=== PATIENT | male | born 1945 | race Caucasian/White ===

== ENCOUNTER 2023-03-29 08:28 | Emergency (ER) | payer OTHER, SELFPAY ==
--- NOTE | 2023-03-29 08:15 | RT.EKG_ITS ---
APPROVED REPORT Exam: Resting ECG Reason for Exam: SOB Patient Location: E HR:57 bpm ECG Measurements Heart Rate 57 AXIS TN 200 P 19 QRSd 93 QRS -32 QT 421 T 32 QTc 410 Conclusion Sinus bradycardia...rate< 60 Left axis deviation...QRS axis (-30,-90)
--- NOTE | 2023-03-29 08:15 | DI.RAD_ITS ---
Exam(s) XR CHEST 2V PA LATERAL EXAM: XR CHEST 2V PA LATERAL CLINICAL HISTORY: SOB, hx Pneumonia 3 weeks ago. TECHNIQUE: 2D digital imaging was performed. COMPARISON: No exams were available for comparison FINDINGS: 2 views: Heart size normal. Mediastinum is not widened. Surgical clips are seen in the right axilla and left medial clavicular region. There is platelike atelectasis in both lung bases. No pleural effusions. No pulmonary edema. No fr actures evident. IMPRESSION: There is prominent platelike atelectasis in both lung bases. No obvious pleural effusions. DATA REPOSITORY: RADIATION DOSE DELIVERED:
[2023-03-29 08:21] VITALS: BP 168/87; PULSE 62; RESP 23; TEMP 36.7; O2SAT 96
[2023-03-29 08:25] VITALS: RESP 20
--- NOTE | 2023-03-29 08:30 | ED.GENADUL_ITS ---
Discharge Plan Disposition Patient Disposition: Home Condition: Stable Discharge Details Clinical Impression: Elevated brain natriuretic peptide (BNP) level, Persistent shortness of breath after COVID-19 Primary Care Provider: None,None ED Provider: Jessica Westfall Home Meds and New Rx's Prescriptions: New furosemide [Lasix] 20 mg tablet 10 mg PO DAILY Qty: 14 0RF Rx Instructions: Please take 1 tablet in the morning by mouth daily for the next 14 days Continued Trelegy Ellipta 200-62.5-25 mcg blister with device 1 inh inhalation DAILY azelastine 137 mcg (0.1 %) aerosol,spray 1 spray intranasal ONCE Rx Instructions: administer into each nostril albuterol sulfate 90 mcg/actuation HFA aerosol inhaler 2 inh inhalation Q6H PRN Discharge Instructions Instructions: Dyspnea (ED), Low-Sodium Diet (ED) Additional Instructions: Today your proBNP level is slightly elevated. You may need to be placed on a low-dose antidiuretic which will make you pee and decrease fluid in your body. If you do not want to start this yet you may discuss this with your primary care doctor and reduce your salt intake. Please continue to take your medications as previously prescribe. Follow up with primary care provider in 3-5 days. Return to ED sooner if any worsening or concerns. Increase oral fluids. I am giving you a number to call to establish care with a primary care provider here in town if needed or able. If you get dizzy or lightheaded you may stop the Lasix for 1 day. Or you may wait to talk to the primary care doctor before you begin it. Referrals: Shannon Cespedes [NURSE PRACTITIONER] - 5 days Discharge Data Discharge Date/Time-TO BE ENTERED AT DEPARTURE: 03/29/23 10:44 Medical Decision Making 77-year-old male with a past medical history of recent pneumonia which was diagnosed approximately 2 to 3 weeks ago who has been being followed by [facility] presents to the ER with continued shortness of breath and problems sleeping at night. He does have an albuterol inhaler which he last used around 2 AM in the morning. He is on his last couple of prednisone after a previous prednisone taper. He reports continued cough mildly productive. Denies any fever chills nausea vomiting diarrhea. He does smoke. He also endorses alcohol and marijuana. Currently is primary medical provider is working him up for possible COPD. Cardiac work-up ordered including EKG serial troponin CBC, CMP, proBNP chest x- ray we will do a rapid flu and COVID. Patient's O2 sat is 96% on room air. Will consider a DuoNeb if needed. Patient is remained hemodynamically stable throughout his stay here no leukocytosis no signs of infection, VBG shows bicarb of 29 base excess of 4 pH 7.42, CMP is largely unremarkable except for BUN of 36 creatinine is 1.3 GFR 56, proBNP is 487 which is slightly elevated. I will discuss this with the patient I did discuss with care management she encouraged me to follow-up have him follow-up with the primary care doctor on-call. He is awaiting to get in with PCP at the [facility]. Imaging Data Radiologic Study: Imaging: X-Ray Radiologist's impression: Exam(s) XR CHEST 2V PA LATERAL EXAM: XR CHEST 2V PA LATERAL CLINICAL HISTORY: SOB, hx Pneumonia 3 weeks ago. TECHNIQUE: 2D digital imaging was performed. COMPARISON: No exams were available for comparison FINDINGS: 2 views: Heart size normal. Mediastinum is not widened. Surgical clips are seen in the right axilla and left medial clavicular region. There is platelike atelectasis in both lung bases. No pleural effusions. No pulmonary edema. No fractures evident. IMPRESSION: There is prominent platelike atelectasis in both lung bases. No obvious pleural effusions. Lab Data Lab results reviewed: Yes I reviewed the patient's lab results. Labs: Laboratory Tests Range/Units 03/29/23 03/29/23 03/29/23 08:37 08:37 08:37 WBC (4.4-10.8) 10^3/uL 9.65 RBC (4.36-5.78) 10^6/uL 4.34 L Hgb (13.5-17.5) g/dL 14.6 Hct (40.0-50.0) % 42.8 MCV (80-95) fL 99 H MCH (27.0-33.0) pg 33.6 H MCHC (32.0-36.0) % 34.1 RDW (11.8-14.1) % 14.2 H Plt Count (130-400) 10^3/uL 228 MPV (8.0-11.0) fL 9.5 Immature Gran % 1.6 Neutrophils % 57.9 Lymphocytes % 28.4 Monocytes % 8.9 Eosinophils % 2.6 Basophils % 0.6 Nucleated RBC % (0.0-0.3) % 0.0 Absolute Neutrophils (1.2-6.7) 10^3/uL 5.59 Absolute Lymphocytes (1.2-3.4) 10^3/uL 2.74 Absolute Monocytes (0.1-0.8) 10^3/uL 0.86 H Absolute Eosinophils (0.0-0.7) 10^3/uL 0.25 Absolute Basophils (0.0-0.2) 10^3/uL 0.06 VBG pH (7.31-7.41) 7.42 H VBG pCO2 (41-51) mmHg 45 VBG pO2 mmHg 49 VBG HCO3 (23-28) mmol/L 29 H VBG Total CO2 (24-29) mmol/L 26 VBG O2 Saturation % 85 VBG Base Excess (-2-3) mmol/L 4 H Sodium (136-145) mmol/L 137 Cancelled Potassium (3.5-5.1) mmol/L 4.3 Cancelled Chloride (98-107) mmol/L 102 Carbon Dioxide (21.0-32.0) mmol/L Anion Gap (3-11) mmol/L BUN (7-18) mg/dL Creatinine (0.70-1.30) mg/dL Est GFR (CKD-EPI 2020) (mL/min/1.73m2) Glucose (74-106) mg/dL Calcium (8.5-10.1) mg/dL Magnesium (1.8-2.4) mg/dL Total Bilirubin (0.2-1.0) mg/dL AST (15-37) U/L ALT (16-63) U/L Alkaline Phosphatase (46-116) U/L Troponin I (<or=60) ng/L NT-Pro-B Natriuret Pep (<300) pg/mL Total Protein (6.4-8.2) g/dL Albumin (3.4-5.0) g/dL Range/Units 03/29/23 03/29/23 03/29/23 08:37 08:37 08:37 WBC (4.4-10.8) 10^3/uL RBC (4.36-5.78) 10^6/uL Hgb (13.5-17.5) g/dL Hct (40.0-50.0) % MCV (80-95) fL MCH (27.0-33.0) pg MCHC (32.0-36.0) % RDW (11.8-14.1) % Plt Count (130-400) 10^3/uL MPV (8.0-11.0) fL Immature Gran % Neutrophils % Lymphocytes % Monocytes % Eosinophils % Basophils % Nucleated RBC % (0.0-0.3) % Absolute Neutrophils (1.2-6.7) 10^3/uL Absolute Lymphocytes (1.2-3.4) 10^3/uL Absolute Monocytes (0.1-0.8) 10^3/uL Absolute Eosinophils (0.0-0.7) 10^3/uL Absolute Basophils (0.0-0.2) 10^3/uL VBG pH (7.31-7.41) VBG pCO2 (41-51) mmHg VBG pO2 mmHg VBG HCO3 (23-28) mmol/L VBG Total CO2 (24-29) mmol/L VBG O2 Saturation % VBG Base Excess (-2-3) mmol/L Sodium (136-145) mmol/L Potassium (3.5-5.1) mmol/L Chloride (98-107) mmol/L Cancelled Carbon Dioxide (21.0-32.0) mmol/L 28.2 Cancelled Anion Gap (3-11) mmol/L 6.8 Cancelled BUN (7-18) mg/dL 36 H Creatinine (0.70-1.30) mg/dL Est GFR (CKD-EPI 2020) (mL/min/1.73m2) Glucose (74-106) mg/dL Calcium (8.5-10.1) mg/dL Magnesium (1.8-2.4) mg/dL Total Bilirubin (0.2-1.0) mg/dL AST (15-37) U/L ALT (16-63) U/L Alkaline Phosphatase (46-116) U/L Troponin I (<or=60) ng/L NT-Pro-B Natriuret Pep (<300) pg/mL Total Protein (6.4-8.2) g/dL Albumin (3.4-5.0) g/dL Range/Units 03/29/23 03/29/23 03/29/23 08:37 08:37 08:37 WBC (4.4-10.8) 10^3/uL RBC (4.36-5.78) 10^6/uL Hgb (13.5-17.5) g/dL Hct (40.0-50.0) % MCV (80-95) fL MCH (27.0-33.0) pg MCHC (32.0-36.0) % RDW (11.8-14.1) % Plt Count (130-400) 10^3/uL MPV (8.0-11.0) fL Immature Gran % Neutrophils % Lymphocytes % Monocytes % Eosinophils % Basophils % Nucleated RBC % (0.0-0.3) % Absolute Neutrophils (1.2-6.7) 10^3/uL Absolute Lymphocytes (1.2-3.4) 10^3/uL Absolute Monocytes (0.1-0.8) 10^3/uL Absolute Eosinophils (0.0-0.7) 10^3/uL Absolute Basophils (0.0-0.2) 10^3/uL VBG pH (7.31-7.41) VBG pCO2 (41-51) mmHg VBG pO2 mmHg VBG HCO3 (23-28) mmol/L VBG Total CO2 (24-29) mmol/L VBG O2 Saturation % VBG Base Excess (-2-3) mmol/L Sodium (136-145) mmol/L Potassium (3.5-5.1) mmol/L Chloride (98-107) mmol/L Carbon Dioxide (21.0-32.0) mmol/L Anion Gap (3-11) mmol/L BUN (7-18) mg/dL Cancelled Creatinine (0.70-1.30) mg/dL 1.3 Cancelled Est GFR (CKD-EPI 2020) (mL/min/1.73m2) 56.93 Cancelled Glucose (74-106) mg/dL 100 Calcium (8.5-10.1) mg/dL Magnesium (1.8-2.4) mg/dL Total Bilirubin (0.2-1.0) mg/dL AST (15-37) U/L ALT (16-63) U/L Alkaline Phosphatase (46-116) U/L Troponin I (<or=60) ng/L NT-Pro-B Natriuret Pep (<300) pg/mL Total Protein (6.4-8.2) g/dL Albumin (3.4-5.0) g/dL Range/Units 03/29/23 03/29/23 03/29/23 08:37 08:37 08:37 WBC (4.4-10.8) 10^3/uL RBC (4.36-5.78) 10^6/uL Hgb (13.5-17.5) g/dL Hct (40.0-50.0) % MCV (80-95) fL MCH (27.0-33.0) pg MCHC (32.0-36.0) % RDW (11.8-14.1) % Plt Count (130-400) 10^3/uL MPV (8.0-11.0) fL Immature Gran % Neutrophils % Lymphocytes % Monocytes % Eosinophils % Basophils % Nucleated RBC % (0.0-0.3) % Absolute Neutrophils (1.2-6.7) 10^3/uL Absolute Lymphocytes (1.2-3.4) 10^3/uL Absolute Monocytes (0.1-0.8) 10^3/uL Absolute Eosinophils (0.0-0.7) 10^3/uL Absolute Basophils (0.0-0.2) 10^3/uL VBG pH (7.31-7.41) VBG pCO2 (41-51) mmHg VBG pO2 mmHg VBG HCO3 (23-28) mmol/L VBG Total CO2 (24-29) mmol/L VBG O2 Saturation % VBG Base Excess (-2-3) mmol/L Sodium (136-145) mmol/L Potassium (3.5-5.1) mmol/L Chloride (98-107) mmol/L Carbon Dioxide (21.0-32.0) mmol/L Anion Gap (3-11) mmol/L BUN (7-18) mg/dL Creatinine (0.70-1.30) mg/dL Est GFR (CKD-EPI 2020) (mL/min/1.73m2) Glucose (74-106) mg/dL Cancelled Calcium (8.5-10.1) mg/dL 9.1 Cancelled Magnesium (1.8-2.4) mg/dL 2.2 Cancelled Total Bilirubin (0.2-1.0) mg/dL 0.3 AST (15-37) U/L ALT (16-63) U/L Alkaline Phosphatase (46-116) U/L Troponin I (<or=60) ng/L NT-Pro-B Natriuret Pep (<300) pg/mL Total Protein (6.4-8.2) g/dL Albumin (3.4-5.0) g/dL Range/Units 03/29/23 03/29/23 03/29/23 08:37 08:37 08:37 WBC (4.4-10.8) 10^3/uL RBC (4.36-5.78) 10^6/uL Hgb (13.5-17.5) g/dL Hct (40.0-50.0) % MCV (80-95) fL MCH (27.0-33.0) pg MCHC (32.0-36.0) % RDW (11.8-14.1) % Plt Count (130-400) 10^3/uL MPV (8.0-11.0) fL Immature Gran % Neutrophils % Lymphocytes % Monocytes % Eosinophils % Basophils % Nucleated RBC % (0.0-0.3) % Absolute Neutrophils (1.2-6.7) 10^3/uL Absolute Lymphocytes (1.2-3.4) 10^3/uL Absolute Monocytes (0.1-0.8) 10^3/uL Absolute Eosinophils (0.0-0.7) 10^3/uL Absolute Basophils (0.0-0.2) 10^3/uL VBG pH (7.31-7.41) VBG pCO2 (41-51) mmHg VBG pO2 mmHg VBG HCO3 (23-28) mmol/L VBG Total CO2 (24-29) mmol/L VBG O2 Saturation % VBG Base Excess (-2-3) mmol/L Sodium (136-145) mmol/L Potassium (3.5-5.1) mmol/L Chloride (98-107) mmol/L Carbon Dioxide (21.0-32.0) mmol/L Anion Gap (3-11) mmol/L BUN (7-18) mg/dL Creatinine (0.70-1.30) mg/dL Est GFR (CKD-EPI 2020) (mL/min/1.73m2) Glucose (74-106) mg/dL Calcium (8.5-10.1) mg/dL Magnesium (1.8-2.4) mg/dL Total Bilirubin (0.2-1.0) mg/dL Cancelled AST (15-37) U/L 20 Cancelled ALT (16-63) U/L 35 Cancelled Alkaline Phosphatase (46-116) U/L 39 L Troponin I (<or=60) ng/L NT-Pro-B Natriuret Pep (<300) pg/mL Total Protein (6.4-8.2) g/dL Albumin (3.4-5.0) g/dL Range/Units 03/29/23 03/29/23 03/29/23 08:37 08:37 08:37 WBC (4.4-10.8) 10^3/uL RBC (4.36-5.78) 10^6/uL Hgb (13.5-17.5) g/dL Hct (40.0-50.0) % MCV (80-95) fL MCH (27.0-33.0) pg MCHC (32.0-36.0) % RDW (11.8-14.1) % Plt Count (130-400) 10^3/uL MPV (8.0-11.0) fL Immature Gran % Neutrophils % Lymphocytes % Monocytes % Eosinophils % Basophils % Nucleated RBC % (0.0-0.3) % Absolute Neutrophils (1.2-6.7) 10^3/uL Absolute Lymphocytes (1.2-3.4) 10^3/uL Absolute Monocytes (0.1-0.8) 10^3/uL Absolute Eosinophils (0.0-0.7) 10^3/uL Absolute Basophils (0.0-0.2) 10^3/uL VBG pH (7.31-7.41) VBG pCO2 (41-51) mmHg VBG pO2 mmHg VBG HCO3 (23-28) mmol/L VBG Total CO2 (24-29) mmol/L VBG O2 Saturation % VBG Base Excess (-2-3) mmol/L Sodium (136-145) mmol/L Potassium (3.5-5.1) mmol/L Chloride (98-107) mmol/L Carbon Dioxide (21.0-32.0) mmol/L Anion Gap (3-11) mmol/L BUN (7-18) mg/dL Creatinine (0.70-1.30) mg/dL Est GFR (CKD-EPI 2020) (mL/min/1.73m2) Glucose (74-106) mg/dL Calcium (8.5-10.1) mg/dL Magnesium (1.8-2.4) mg/dL Total Bilirubin (0.2-1.0) mg/dL AST (15-37) U/L ALT (16-63) U/L Alkaline Phosphatase (46-116) U/L Cancelled Troponin I (<or=60) ng/L < 50 NT-Pro-B Natriuret Pep (<300) pg/mL 487 H Total Protein (6.4-8.2) g/dL 7.0 Cancelled Albumin (3.4-5.0) g/dL 3.5 Cancelled HPI General Mode of arrival: EMS . Date/Time Provider Initiated Documentation: 03/29/23 09:26 . Limitations to Documentation: no limitations . Information obtained by: patient, EMS, RN notes reviewed and old records reviewed . HPI Narrative: 77-year-old male with a past medical history of recent pneumonia which was diagnosed approximately 2 to 3 weeks ago who has been being followed by [facility] presents to the ER with continued shortness of breath and problems sleeping at night. He does have an albuterol inhaler which he last used around 2 AM in the morning. He is on his last couple of prednisone after a previous prednisone taper. He reports continued cough mildly productive. Denies any fever chills nausea vomiting diarrhea. He does smoke. He also endorses alcohol and marijuana. Currently is primary medical provider is working him up for possible COPD. Related Data Home Medications Medication Instructions Recorded Confirmed albuterol sulfate 90 mcg/actuation 2 inh inhalation Q6H PRN 03/29/23 03/29/23 aerosol inhaler azelastine 137 mcg (0.1 %) nasal 1 spray intranasal ONCE 03/29/23 03/29/23 spray aerosol fluticasone fur. 200 mcg-umeclid 1 inh inhalation DAILY 03/29/23 03/29/23 62.5 mcg-vilant 25 mcg inhalat.powder (Trelegy Ellipta) furosemide 20 mg tablet (Lasix) 10 mg (1/2 x 20 mg) PO DAILY 03/29/23 Elevated BNP #14 tabs Previous Rx's Medication Instructions Recorded furosemide 20 mg tablet (Lasix) 10 mg (1/2 x 20 mg) PO DAILY 03/29/23 Elevated BNP #14 tabs Allergies Allergy/AdvReac Type Severity Reaction Status Date / Time Milk Containing Products Allergy Mild Diarrhea Unverified 03/29/23 08:29 (Dairy) codeine AdvReac Mild Itching Unverified 03/29/23 08:29 General Stated Complaint: SOB AMANDEEP: 3 Review of Systems Cardiovascular Cardiovascular: Reports dyspnea Respiratory Respiratory: Reports chest congestion, Reports cough and Reports dyspnea PFSH All Active Problems (Updated 03/29/23 @ 10:28 by Jessica Westfall NP) Persistent shortness of breath after COVID-19 (Acute) Elevated brain natriuretic peptide (BNP) level (Acute) Social History Smoking/Tobacco Use Status: Never Smoking risk assessment performed?: Yes Alcohol Intake: current Alcohol Intake frequency: a few times a month Alcohol type: beer and hard liquor Drug use: Occasionally Substance use type: marijuana Housing: house Exam Narrative Exam Narrative: Constitutional: Alert and oriented x3. Appears stated age. Normal body habitus. Head: Normocephalic, no trauma. Eyes: Pupils PERRL, Red reflex noted, EOM's intact. Eyelids symmetrical without lesions, discharge, or swelling. Chest: RRR, Normal S1, S2, distal pulses intact. Resp: Lungs diminished in the left upper and lower bases, clear on the right. Abdomen: Soft, non-distended, Normoactive bowel sounds all 4 quads. Musculoskeletal: Unable to assess gait, 5/5 strength to all four extremities. Skin: No suspicious rashes or lesions. Capillary refill less than 2 sec. Neurologic: Cranial nerves II-XII intact. Alert and oriented x 3. Motor: No deficits noted. Hematologic/Lymphatic: No ecchymosis, no lymphadenopathy. Course Vital Signs Vital signs: Vital Signs Temperature 36.7 C 03/29/23 08:21 Pulse 62 03/29/23 08:21 Respiratory Rate 23 03/29/23 08:21 Blood Pressure 168/87 H 03/29/23 08:21 Pulse Oximetry 96 03/29/23 08:21 Temperature 36.7 C 03/29/23 08:21 Temperature Source Oral 03/29/23 08:21 Pulse 62 03/29/23 08:21 Respiratory Rate 20 03/29/23 08:25 Respiratory Effort Non-Labored, Short of Breath 03/29/23 08:25 Respiratory Depth Normal 03/29/23 08:25 Respiratory Pattern Normal 03/29/23 08:25 Blood Pressure 168/87 H 03/29/23 08:21 Blood Pressure Position Sitting 03/29/23 08:21 Pulse Oximetry 96 03/29/23 08:21 Oxygen Delivery Method Room Air 03/29/23 08:21 Oxygen Flow Rate 0 03/29/23 08:21 Pain Level 0 03/29/23 08:21 PAWSS Have you Been Recently Intoxicated or Drunk Within the Last 30 days?: No Have you Ever Experienced Previous Episodes of Alcohol Withdrawal?: No Have you ever Experienced Withdrawal Seizures?: No Have you ever Experienced Delirium Tremens(DT)s?: No Have you ever undergone Alcohol Rehabilitation Treatment (i.e, inpt ot outpatient treatment programs)?: No Have you ever Experienced Blackouts?: No Have you ever Combined Alcohol with other Downers within the last 90 days?: No Have you ever Combined Alcohol with any other Substance of Abuse during the last 90 days?: No Result: 0
[2023-03-29 08:43] LABS: BE (Venous) 4 mmol/L (-2-3); HCO3 (Venous) 29 mmol/L (23-28); O2 Sat (Venous) 85 %; TCO2 (Venous) 26 mmol/L (24-29); pCO2 (Venous) 45 mmHg (41-51); pH (Venous) 7.42 (7.31-7.41); pO2 (Venous) 49 mmHg
[2023-03-29 08:52] LABS: Abs Immature Grans 0.15 10^3/uL (0.0-0.06); Absolute Basophil Count 0.06 10^3/uL (0.0-0.2); Absolute Eosinophil Count 0.25 10^3/uL (0.0-0.7); Absolute Lymphocyte Count 2.74 10^3/uL (1.2-3.4); Absolute Monocyte Count 0.86 10^3/uL (0.1-0.8); Absolute Neutrophil Count 5.59 10^3/uL (1.2-6.7); Basophils % 0.6; Eosinophils % 2.6; HCT 42.8 % (40.0-50.0); HGB 14.6 g/dL (13.5-17.5); Immature Grans % 1.6; Lymphocytes % 28.4; MCH 33.6 pg (27.0-33.0); MCHC 34.1 % (32.0-36.0); MCV 99 fL (80-95); MPV 9.5 fL (8.0-11.0); Monocytes % 8.9; Neutrophils % 57.9; Platelet Count 228 10^3/uL (130-400); RBC 4.34 10^6/uL (4.36-5.78); RDW 14.2 % (11.8-14.1); WBC 9.65 10^3/uL (4.4-10.8)
[2023-03-29 09:12] VITALS: O2SAT 97
[2023-03-29] MEDS: Albuterol/Ipratropium 3 ML UPD VIAL UPD (09:12)
[2023-03-29 09:16] LABS: ALT 35 U/L (16-63); AST 20 U/L (15-37); Albumin 3.5 g/dL (3.4-5.0); Alkaline Phosphatase 39 U/L (46-116); Anion Gap 6.8 mmol/L (3-11); BUN 36 mg/dL (7-18); Bilirubin, Total 0.3 mg/dL (0.2-1.0); CO2 28.2 mmol/L (21.0-32.0); CREATININE 1.3 mg/dL (0.70-1.30); Calcium 9.1 mg/dL (8.5-10.1); Chloride 102 mmol/L (98-107); Estimated GFR 56.93 (mL/min/1.73m2); Glucose 100 mg/dL (74-106); Magnesium 2.2 mg/dL (1.8-2.4); NT-proBNP 487 pg/mL (<300); Potassium 4.3 mmol/L (3.5-5.1); Sodium 137 mmol/L (136-145); Troponin I < 50 ng/L (<or=60)
== END 2023-03-29 10:44 | disposition home or self-care (01) ==
LOC: ER 12:34
PROVIDERS: Emergency Provider Registered Nurse Emergency
DX: R79.89 Other specified abnormal findings of blood chemistry (principal); U09.9 Post COVID-19 condition, unspecified; R06.02 Shortness of breath
CPT/HCPCS: 80053; 82805; 93005; 94640; 99284; 71046; 83735; 83880; 84484; 85025; 93010; J7620

== ENCOUNTER 2023-04-25 06:54 | Emergency (ER) | payer OTHER, SELFPAY ==
[2023-04-25 07:02] VITALS: BP 213/113; PULSE 82; RESP 22; TEMP 36.6; O2SAT 95
--- NOTE | 2023-04-25 07:15 | DI.RAD_ITS ---
Exam(s) XR CHEST 2V PA LATERAL EXAM: XR CHEST 2V PA LATERAL CLINICAL HISTORY: cough, left lung wheeze TECHNIQUE: 2D digital imaging was performed. COMPARISON: 29 March 2023 FINDINGS: HEART: Normal size. Aorta: Tortuous, unchanged. PULMONARY VASCULATURE: Normal. LUNGS: Linear scarring at the lung bases, otherwise clear. PLEURAL SPACE: No pleural effusion or pneumothorax. BONE:Unremarkable for age. Soft tissues: Surgical clips overlie the upper chest wall. IMPRESSION: No acute abnormality. DATA REPOSITORY: RADIATION DOSE DELIVERED:
[2023-04-25 07:16] VITALS: BP 195/110; PULSE 73; O2SAT 94
--- NOTE | 2023-04-25 07:19 | ED.GENADUL_ITS ---
Discharge Plan Disposition Patient Disposition: Home Condition: Improving Discharge Details Clinical Impression: Cough Primary Care Provider: [facility] ED Provider: Michael Olvera Home Meds and New Rx's Prescriptions: New albuterol sulfate 1.25 mg/3 mL solution for nebulization 1.25 mg inhalation Q6H PRN (Reason: shortness of breath or wheezing) Qty: 75 0RF No Action omeprazole 10 mg capsule,delayed release(DR/EC) 10 mg PO DAILY gabapentin 300 mg capsule 300 mg PO BID PRN losartan [Cozaar] 50 mg tablet 50 mg PO DAILY Trelegy Ellipta 200-62.5-25 mcg blister with device 1 inh inhalation DAILY azelastine 137 mcg (0.1 %) aerosol,spray 1 spray intranasal ONCE Rx Instructions: administer into each nostril albuterol sulfate 90 mcg/actuation HFA aerosol inhaler 2 inh inhalation Q6H PRN furosemide [Lasix] 20 mg tablet 10 mg PO DAILY Qty: 14 0RF Rx Instructions: Please take 1 tablet in the morning by mouth daily for the next 14 days Discharge Instructions Instructions: Acute Cough (ED) Additional Instructions: Please follow-up with pulmonology team either at OR or [facility]. Please follow-up with your primary care physician. Take medications as prescribed. Return to the emergency department for any worsening symptoms Medical Decision Making 78-year-old male presents with persistent shortness of breath and nonproductive cough over the past several weeks, recent visit to ER patient endorses elevated CO level at 4% but he attributes to living in a trailer and using burn or heat, on Lasix and losartan at home for edema and hypertension, has not taken his medication today, afebrile nontoxic no acute distress speaking full sentences, no retractions no stridor, mild expiratory wheeze left lung field anteriorly, no peripheral edema. Consider pneumonia versus viral URI versus COPD versus less likely pulmonary edema given examination lower suspicion for ACS PE or pneumothorax, low suspicion for aortic pathology given history and physical. Trial of nebs dexamethasone, screening x-ray 8: 29 patient resting comfortably feeling better after nebs and steroid. No respiratory distress. Carbon monoxide level within normal range. Home care instructions and return precautions given. Patient has pulmonology appointment through the OR system within the next couple of months however given worsening symptoms recently (specifically cough and gasping at night, consider sleep apnea versus COPD versus early CHF) we will provide referral to our pulmonology team here at [facility] to potentially expedite care. Will refill patient's albuterol nebulizer solution prescription. HPI General Date/Time Provider Initiated Documentation: 04/25/23 07:08 . HPI Narrative: 78-year-old male presents with shortness of breath cough over the past several weeks, endorses recent diagnosis of CO poisoning with carbon oxide level of 4% detected at outside hospital, patient denies smoking history, does live in a trailer with burn or heat. Nonproductive cough and shortness of breath persistent. No chest pain nausea vomiting fevers chills or other systemic signs of illness. Patient is on Lasix and losartan for edema and chronic hypertension. Has not taken his losartan today Related Data Home Medications Medication Instructions Recorded Confirmed albuterol sulfate 90 mcg/actuation 2 inh inhalation Q6H PRN 03/29/23 04/25/23 aerosol inhaler azelastine 137 mcg (0.1 %) nasal 1 spray intranasal ONCE 03/29/23 04/25/23 spray aerosol fluticasone fur. 200 mcg-umeclid 1 inh inhalation DAILY 03/29/23 04/25/23 62.5 mcg-vilant 25 mcg inhalat.powder (Trelegy Ellipta) furosemide 20 mg tablet (Lasix) 10 mg (1/2 x 20 mg) PO DAILY 03/29/23 04/25/23 Elevated BNP #14 tabs albuterol sulfate 1.25 mg/3 mL 1.25 mg (3 mL) inhalation Q6H PRN 04/25/23 solution for nebulization shortness of breath or wheezing #75 mL gabapentin 300 mg capsule 300 mg PO BID PRN 04/25/23 04/25/23 losartan 50 mg tablet (Cozaar) 50 mg PO DAILY 04/25/23 04/25/23 omeprazole 10 mg capsule,delayed 10 mg PO DAILY 04/25/23 04/25/23 release Previous Rx's Medication Instructions Recorded furosemide 20 mg tablet (Lasix) 10 mg (1/2 x 20 mg) PO DAILY 03/29/23 Elevated BNP #14 tabs albuterol sulfate 1.25 mg/3 mL 1.25 mg (3 mL) inhalation Q6H PRN 04/25/23 solution for nebulization shortness of breath or wheezing #75 mL Allergies Allergy/AdvReac Type Severity Reaction Status Date / Time Milk Containing Products Allergy Mild Diarrhea Unverified 04/25/23 07:06 (Dairy) codeine AdvReac Mild Itching Unverified 04/25/23 07:06 General Stated Complaint: RespSymp AMANDEEP: 2 Review of Systems Narrative: Review of Systems Constitutional: negative Eyes: negative ENT: negative Cardiovascular: negative Respiratory: Shortness of breath Gastrointestinal: negative : negative Musculoskeletal: negative Skin: negative Neurologic: negative Psych: negative PFSH All Active Problems (Updated 04/25/23 @ 08:32 by Michael Olvera MD) Cough (Acute) Persistent shortness of breath after COVID-19 (Acute) Elevated brain natriuretic peptide (BNP) level (Acute) Social History Smoking/Tobacco Use Status: Never Smoking risk assessment performed?: Yes Alcohol Intake: current Alcohol Intake frequency: a few times a month Alcohol type: beer and hard liquor Drug use: Occasionally Substance use type: marijuana Housing: house Exam Narrative Exam Narrative: Physical Examination General: alert, awake, cooperative, resting comfortably, no acute distress HEENT: normocephalic, atraumatic; PERRL, EOM intact, conjunctiva normal; no nasal discharge; moist mucous membranes, oral and pharyngeal mucosa normal, tolerating secretions Neck: supple, trachea midline; full ROM Chest: normal to inspection Respiratory: normal respiratory effort, speaking in full sentences, faint expiratory wheeze left lung field anterior Cardiac: regular rate, regular rhythm, S1S2 intact, no murmurs rubs or gallops GI: abdomen soft, non-tender, non-distended; no palpable mass or hepatosplenomegaly Skin: no lesions, rashes or trauma appreciated Neuro: AAOx3, normal speech, moving all extremities Extremities: No peripheral edema Psych: Appropriate mood and affect Course Vital Signs Vital signs: Vital Signs Temperature 36.6 C 04/25/23 07:02 Pulse 82 04/25/23 07:02 Respiratory Rate 22 04/25/23 07:02 Blood Pressure 213/113 H 04/25/23 07:02 Pulse Oximetry 95 04/25/23 07:02 Temperature 36.6 C 04/25/23 07:02 Pulse 82 04/25/23 07:02 Respiratory Rate 22 04/25/23 07:02 Respiratory Effort Short of Breath 04/25/23 07:09 Blood Pressure 213/113 H 04/25/23 07:02 Blood Pressure Position Sitting 04/25/23 07:02 Pulse Oximetry 95 04/25/23 07:02 Oxygen Delivery Method Room Air 04/25/23 07:02 Oxygen Flow Rate 0 04/25/23 07:02 PAWSS Have you Been Recently Intoxicated or Drunk Within the Last 30 days?: No Have you Ever Experienced Previous Episodes of Alcohol Withdrawal?: No Have you ever Experienced Withdrawal Seizures?: No Have you ever Experienced Delirium Tremens(DT)s?: No Have you ever undergone Alcohol Rehabilitation Treatment (i.e, inpt ot outpatient treatment programs)?: No Have you ever Experienced Blackouts?: No Have you ever Combined Alcohol with other Downers within the last 90 days?: No Have you ever Combined Alcohol with any other Substance of Abuse during the last 90 days?: No Result: 0
[2023-04-25] MEDS: Albuterol/Ipratropium 3 ML UPD VIAL 6 ML UPD (07:26)
[2023-04-25] MEDS: Dexamethasone 10 MG/ML VIAL PO (07:26)
[2023-04-25 07:30] VITALS: BP 166/96; PULSE 67; PULSE 72; RESP 14; O2SAT 97
[2023-04-25 07:44] LABS: Carboxyhemoglobin 2.4 %
[2023-04-25 07:46] VITALS: BP 183/91; PULSE 77; PULSE 78; RESP 15; O2SAT 97
[2023-04-25 08:55] VITALS: BP 186/80; PULSE 84; RESP 14; O2SAT 95
--- NOTE | 2023-04-25 09:25 | NUR.NOTE ---
Referral faxed to [facility] Pulmonology for persistent cough, possible sleep apnea. In 1 to 2 weeks. Nursing Note:
== END 2023-04-25 09:02 | disposition home or self-care (01) ==
PROVIDERS: Emergency Provider Emergency Medicine
DX: R05.9 Cough, unspecified (principal); R06.02 Shortness of breath; G47.00 Insomnia, unspecified; R60.9 Edema, unspecified; I10 Essential (primary) hypertension
CPT/HCPCS: 82375; 94640; 99283; 71046; J1100; J7620

== ENCOUNTER 2023-05-09 18:30 | Emergency (ER) | payer OTHER, SELFPAY ==
[2023-05-09] VITALS (25 sets, daily range): BP systolic 136–265; BP diastolic 63–113; PULSE 55–81; RESP 12–23; TEMP 37.1; O2SAT 88–95
--- NOTE | 2023-05-09 18:30 | DI.RAD_ITS ---
Exam(s) XR CHEST 2V PA LATERAL EXAM: XR CHEST 2V PA LATERAL CLINICAL HISTORY: htn, n/v/d TECHNIQUE: 2D digital imaging was performed of the chest. Two images were obtained. PA and lateral views were obtained. COMPARISON: CR XR CHEST 2V PA LATERAL from 04/25/2023 FINDINGS: MEDIASTINUM: Normal. HEART: Normal. PULMONARY VASCULATURE: Normal. LUNGS: Stable scarring and on the right. No focal consolidation. PLEURAL SPACE: No pleural effusion or pneumothorax. BONE:Within normal limits for the patient's age. OTHER FINDINGS:Surgical clips are seen which appears stable. IMPRESSION: No acute pulmonary findings. DATA REPOSITORY: RADIATION DOSE DELIVERED:
--- NOTE | 2023-05-09 18:30 | DI.CT_ITS ---
Exam(s) CT HEAD WO EXAM: CT HEAD WO CLINICAL HISTORY: n/v htn, headache. TECHNIQUE: Imaging Protocol: Axial computed tomography images with coronal and sagittal reformatted images were created and reviewed COMPARISON: No exams were available for comparison FINDINGS: Ventricles and Extra axial spaces: Normal in size and morphology for the patient's age. Hemorrhage: None. Cerebral parenchyma: No acute territorial infarct is identified at this time. There is subtle areas of decreased attenuation in the white matter most consistent with small vessel ischemic disease. Midline shift: None. Brainstem/Cerebellum: Normal. Calvarium: Normal. Visualized Paranasal sinuses/Mastoids: Clear. Soft Tissues: Unremarkable. IMPRESSION: No acute intracranial process. RADIATION DOSE DELIVERED: Total DLP DATA REPOSITORY: All CT scans at this facility are submitted to the National Radiology Data Registry (NRDR) Dose Index Registry (DIR) with the [employer] (A[employer]). RADIATION OPTIMIZATION: All CT scans at this facility use at least one of these dose optimization te chniques: automated exposure control; mA and/or kV adjustment per patient size (includes targeted exa ms where dose is matched to clinical indication); or iterative reconstruction.
--- NOTE | 2023-05-09 18:30 | RT.EKG_ITS ---
APPROVED REPORT Exam: Resting ECG Reason for Exam: htn, n/v Patient Location: E HR:66 bpm ECG Measurements Heart Rate 66 AXIS MD 111 P 25 QRSd 91 QRS -81 QT 413 T 57 QTc 432 Conclusion Sinus rhythm...normal P axis, V-rate 60- 99 Left anterior fascicular block...axis(240,-40), init forces inf sinus rhythm, normal axis, normal intervals, t wave inverions V1, flattening V2
--- NOTE | 2023-05-09 18:46 | ED.GENADUL_ITS ---
Discharge Plan Disposition Patient Disposition: Home Condition: Improving Discharge Details Chief Complaint: Nausea/Vomit/Diar Clinical Impression: Nausea Primary Care Provider: Unknown,Unknown ED Provider: Michael Olvera Home Meds and New Rx's Prescriptions: No Action omeprazole 10 mg capsule,delayed release(DR/EC) 40 mg PO DAILY gabapentin 300 mg capsule 300 mg PO BID PRN losartan [Cozaar] 50 mg tablet 50 mg PO DAILY albuterol sulfate 1.25 mg/3 mL solution for nebulization 1.25 mg inhalation Q6H PRN (Reason: shortness of breath or wheezing) Qty: 75 0RF Trelegy Ellipta 200-62.5-25 mcg blister with device 1 inh inhalation DAILY azelastine 137 mcg (0.1 %) aerosol,spray 1 spray intranasal ONCE Rx Instructions: administer into each nostril albuterol sulfate 90 mcg/actuation HFA aerosol inhaler 2 inh inhalation Q6H PRN furosemide [Lasix] 20 mg tablet 10 mg PO DAILY Qty: 14 0RF Rx Instructions: Please take 1 tablet in the morning by mouth daily for the next 14 days Discharge Instructions Instructions: Acute Nausea and Vomiting (ED) Additional Instructions: Please take your medications as prescribed. Please return to the emergency department for any worsening symptoms Medical Decision Making 78-year-old male history of hypertension presents with nausea vomiting diarrhea headache abdominal discomfort mild cough, no chest pain no shortness of breath no peripheral edema afebrile nontoxic alert oriented moving all extremities without deficit, noted to be hypertensive in arrival and bradycardic. Consider viral illness such as influenza COVID or RSV versus pneumonia versus viral gastroenteritis lower suspicion for cholecystitis or appendicitis low suspicion for diverticulitis or colitis given history and physical, must consider hypertensive emergency given nausea vomiting headache and hypertension will screen for intracerebral edema or hemorrhage with CT head, basic labs, viral swab, will also rescreen for carbon monoxide poisoning given patient's heating source currently living in a bus; fluids, trial of hydralazine Zofran close reassessment of symptoms disposition pending results and reassessment 20: 27 patient resting actively no acute distress blood pressure greatly improved. Patient feeling better after meds and rest. Home care instructions and return precautions. We will follow-up with primary care physician. HPI General Date/Time Provider Initiated Documentation: 05/09/23 18:37 . HPI Narrative: 78-year-old male history of hypertension presents with headache nausea vomiting diarrhea over the last 1 to 2 days, patient was seen recently for possible carbon monoxide poisoning and cleared of this diagnosis, denies chest pain shortness of breath leg swelling or pain Related Data Home Medications Medication Instructions Recorded Confirmed albuterol sulfate 90 mcg/actuation 2 inh inhalation Q6H PRN 03/29/23 05/09/23 aerosol inhaler azelastine 137 mcg (0.1 %) nasal 1 spray intranasal ONCE 03/29/23 05/09/23 spray aerosol fluticasone fur. 200 mcg-umeclid 1 inh inhalation DAILY 03/29/23 05/09/23 62.5 mcg-vilant 25 mcg inhalat.powder (Trelegy Ellipta) furosemide 20 mg tablet (Lasix) 10 mg (1/2 x 20 mg) PO DAILY 03/29/23 05/09/23 Elevated BNP #14 tabs albuterol sulfate 1.25 mg/3 mL 1.25 mg (3 mL) inhalation Q6H PRN 04/25/23 05/09/23 solution for nebulization shortness of breath or wheezing #75 mL gabapentin 300 mg capsule 300 mg PO BID PRN 04/25/23 05/09/23 losartan 50 mg tablet (Cozaar) 50 mg PO DAILY 04/25/23 05/09/23 omeprazole 10 mg capsule,delayed 40 mg PO DAILY 04/25/23 05/09/23 release Previous Rx's Medication Instructions Recorded furosemide 20 mg tablet (Lasix) 10 mg (1/2 x 20 mg) PO DAILY 03/29/23 Elevated BNP #14 tabs albuterol sulfate 1.25 mg/3 mL 1.25 mg (3 mL) inhalation Q6H PRN 04/25/23 solution for nebulization shortness of breath or wheezing #75 mL Allergies Allergy/AdvReac Type Severity Reaction Status Date / Time Milk Containing Products Allergy Mild Diarrhea Unverified 05/09/23 18:37 (Dairy) codeine AdvReac Mild Itching Unverified 05/09/23 18:37 General Stated Complaint: Nausea/Vomit/Diar AMANDEEP: 3 Review of Systems Narrative: Review of Systems Constitutional: negative Eyes: negative ENT: negative Cardiovascular: negative Respiratory: negative Gastrointestinal: Nausea vomiting diarrhea : negative Musculoskeletal: negative Skin: negative Neurologic: Headache Psych: negative PFSH All Active Problems (Updated 05/09/23 @ 20:30 by Michael Olvera MD) Nausea (Acute) Cough (Acute) Persistent shortness of breath after COVID-19 (Acute) Social History Smoking/Tobacco Use Status: Never Smoking risk assessment performed?: Yes Alcohol Intake: current Alcohol Intake frequency: a few times a month Alcohol type: beer and hard liquor Drug use: Occasionally Substance use type: marijuana Housing: house Exam Narrative Exam Narrative: Physical Examination General: alert, awake, cooperative, resting comfortably, no acute distress HEENT: normocephalic, atraumatic; PERRL, EOM intact, conjunctiva normal; no nasal discharge; moist mucous membranes, oral and pharyngeal mucosa normal, tolerating secretions Neck: supple, trachea midline; full ROM Chest: normal to inspection Respiratory: normal respiratory effort, speaking in full sentences, clear to auscultation, no wheezing, rales or rhonchi Cardiac: regular rate, regular rhythm, S1S2 intact, no murmurs rubs or gallops GI: abdomen soft, non-tender, non-distended; no palpable mass or hepatosplenomegaly Skin: no lesions, rashes or trauma appreciated Neuro: AAOx3, normal speech, moving all extremities Extremities: No peripheral edema Psych: Appropriate mood and affect Course Vital Signs Vital signs: Vital Signs Temperature 37.1 C 05/09/23 18:31 Pulse 55 L 05/09/23 18:31 Respiratory Rate 20 05/09/23 18:31 Blood Pressure 265/113 H 05/09/23 18:31 Pulse Oximetry 94 05/09/23 18:31 Temperature 37.1 C 05/09/23 18:31 Temperature Source Temporal Artery Scan 05/09/23 18:31 Pulse 55 L 05/09/23 18:31 Respiratory Rate 20 05/09/23 18:31 Respiratory Effort Normal 05/09/23 18:36 Blood Pressure 265/113 H 05/09/23 18:31 Pulse Oximetry 94 05/09/23 18:31 Oxygen Delivery Method Room Air 05/09/23 18:31 Oxygen Flow Rate 0 05/09/23 18:31 PAWSS Have you Been Recently Intoxicated or Drunk Within the Last 30 days?: No Have you Ever Experienced Previous Episodes of Alcohol Withdrawal?: No Have you ever Experienced Withdrawal Seizures?: No Have you ever Experienced Delirium Tremens(DT)s?: No Have you ever undergone Alcohol Rehabilitation Treatment (i.e, inpt ot outpatient treatment programs)?: No Have you ever Experienced Blackouts?: No Have you ever Combined Alcohol with other Downers within the last 90 days?: No Have you ever Combined Alcohol with any other Substance of Abuse during the last 90 days?: No Result: 0
[2023-05-09 19:01] LABS: Abs Immature Grans 0.03 10^3/uL (0.0-0.06); Absolute Basophil Count 0.06 10^3/uL (0.0-0.2); Absolute Eosinophil Count 0.28 10^3/uL (0.0-0.7); Absolute Lymphocyte Count 1.28 10^3/uL (1.2-3.4); Absolute Monocyte Count 0.59 10^3/uL (0.1-0.8); Absolute Neutrophil Count 6.32 10^3/uL (1.2-6.7); Basophils % 0.7; Eosinophils % 3.3; HCT 48.1 % (40.0-50.0); HGB 16.5 g/dL (13.5-17.5); Immature Grans % 0.4; MCH 32.4 pg (27.0-33.0); MCHC 34.3 % (32.0-36.0); MCV 94 fL (80-95); MPV 9.3 fL (8.0-11.0); Monocytes % 6.9; Neutrophils % 73.7; Platelet Count 230 10^3/uL (130-400); RDW-SD 45.4 fL; WBC 8.56 10^3/uL (4.4-10.8)
[2023-05-09] MEDS: Normal Saline 500 ML 1000 ML IV (19:01)
[2023-05-09] MEDS: Ondansetron 4 MG/2 ML VIAL IVP (19:01)
[2023-05-09] MEDS: hydrALAZINE 20 MG/ML VIAL 10 MG IVP (19:01)
[2023-05-09 19:03] LABS: Carboxyhemoglobin 3.4 %
[2023-05-09 19:15] LABS: INR 1.1 (0.9-1.1); PTT Activated 24.5 sec (23.6-32.8); Prothrombin Time 10.9 sec (9.1-11.1)
--- NOTE | 2023-05-09 19:23 | DI.VRAD_ITS ---
PROCEDURE INFORMATION: Exam: CT Head Without Contrast Exam date and time: 05/09/2023 7:01 PM Age: 78 years old Clinical indication: Pain; Other: N/v, HTN; Headache; Additional info: N/v, HTN, headache TECHNIQUE: Imaging protocol: Computed tomography of the head without contrast. COMPARISON: No relevant prior studies available. FINDINGS: Brain: Mild volume loss No hemorrhage. Moderate white matter disease No mass effect. Cerebral ventricles: No ventriculomegaly. Paranasal sinuses: Visualized sinuses are unremarkable. No fluid levels. Mastoid air cells: Visualized mastoid air cells are well aerated. Bones/joints: Unremarkable. No acute fracture. Soft tissues: Unremarkable. IMPRESSION: No acute intracranial abnormality. Dictated and Authenticated by: Navneet Connor MD. Ordering:JUAN Rodriguez MD
--- NOTE | 2023-05-09 19:24 | DI.VRAD_ITS ---
PROCEDURE INFORMATION: Exam: XR Chest Exam date and time: 05/09/2023 7:16 PM Age: 78 years old Clinical indication: Other: N/v, HTN; Additional info: N/v, HTN, headache TECHNIQUE: Imaging protocol: Radiologic exam of the chest. Views: 2 views. COMPARISON: CR XR CHEST 2V PA LATERAL 04/25/2023 8:00 AM FINDINGS: Surgical clips are grossly stable Lungs: Mild scarring on the right is grossly stable No consolidation. Pleural spaces: No pleural effusion. No pneumothorax. Heart/Mediastinum: Grossly stable. Bones/joints: Unremarkable. IMPRESSION: No acute findings. No significant interval change Dictated and Authenticated by: Navneet Connor MD. Ordering:JUAN Rodriguez MD
[2023-05-09 19:30] LABS: ALT 19 U/L (16-63); AST 20 U/L (15-37); Albumin 4.2 g/dL (3.4-5.0); Alkaline Phosphatase 50 U/L (46-116); Anion Gap 12.8 mmol/L (3-11); BUN 23 mg/dL (7-18); Bilirubin, Total 0.8 mg/dL (0.2-1.0); CO2 23.2 mmol/L (21.0-32.0); CREATININE 1.2 mg/dL (0.70-1.30); Calcium 9.6 mg/dL (8.5-10.1); Chloride 102 mmol/L (98-107); Estimated GFR 62.29 (mL/min/1.73m2); Glucose 117 mg/dL (74-106); Potassium 3.7 mmol/L (3.5-5.1); Sodium 138 mmol/L (136-145); Total Protein 8.5 g/dL (6.4-8.2)
[2023-05-09 19:53] LABS: COVID-19 PCR Negative (Negative); Influenza A PCR Negative (Negative); Influenza B PCR Negative (Negative); RSV PCR Negative (Negative)
[2023-05-09 19:56] LABS: Source Nasopharynx
--- NOTE | 2023-05-10 09:35 | NUR.NOTE ---
Accessed chart to determine orders for EKG and to determine whether or not one needs to be cancelled. Nursing Note:
== END 2023-05-09 20:48 | disposition home or self-care (01) ==
PROVIDERS: Emergency Provider Emergency Medicine
DX: R51.9 Headache, unspecified (principal); R11.2 Nausea with vomiting, unspecified; I10 Essential (primary) hypertension; Z79.899 Other long term (current) drug therapy
CPT/HCPCS: 80053; 82375; 87637; 93005; 96361; 96374; 96375; 99285; 70450; 71046; 85025; 85610; 85730; 93010; 99284; J0360; J2405

== ENCOUNTER 2023-05-18 20:51 | Emergency (ER) | payer OTHER, SELFPAY ==
[2023-05-18] VITALS (13 sets, daily range): BP systolic 111–158; BP diastolic 67–79; PULSE 69–78; RESP 19–20; TEMP 36.5–37.2; O2SAT 88–99
--- NOTE | 2023-05-18 20:45 | DI.RAD_ITS ---
Exam(s) XR ANKLE RT COMPLETE EXAM: XR ANKLE RT COMPLETE CLINICAL HISTORY: fall, trauma. TECHNIQUE: 2D digital imaging was performed. Three views. COMPARISON: No exams were available for comparison FINDINGS: BONES: Nondisplaced spiral fracture distal fibula. The distal tibia appears intact. Talar dome is i ntact. No bony destructive lesion is seen. JOINTS: The ankle mortise is normally aligned. No significant tibiotalar joint space narrowing. SOFT TISSUE: Swelling greatest around the lateral malleolus. Chronic appearing calcification adjacen t to the lateral malleolus and posterior calcaneus. Vascular calcifications. IMPRESSION: Nondisplaced fracture distal fibula. DATA REPOSITORY: RADIATION DOSE DELIVERED:
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
[2023-05-18] MEDS: Albuterol HFA 8 GM 60 PUFF INH IH (21:42)
--- NOTE | 2023-05-18 21:44 | DI.VRAD_ITS ---
PROCEDURE INFORMATION: Exam: XR Right Ankle Exam date and time: 05/18/2023 9:06 PM Age: 78 years old Clinical indication: Injury or trauma; Other: Fall, trauma; Patient HX: Fall, ankle pain TECHNIQUE: Imaging protocol: Radiologic exam of the right ankle. Views: 3 or more views. COMPARISON: No relevant prior studies available. FINDINGS: Bones/joints: There is a nondisplaced slightly spiral distal fibular fracture. No definite comminution. There is a small ankle effusion. There is fairly significant lateral malleolar soft tissue swelling. Soft tissues: See Bones/joints finding. IMPRESSION: Apparent spiral fracture distal fibula. Dictated and Authenticated by: Sarah Leos MD. Ordering:DESTINEY Lopez MD
== END 2023-05-19 06:44 | disposition home or self-care (01) ==
PROVIDERS: Emergency Provider Registered Nurse Emergency
DX: S82.444A Nondisplaced spiral fracture of shaft of right fibula, initial encounter for closed fracture (principal); I10 Essential (primary) hypertension; R05.3 Chronic cough; W00.1XXA Fall from stairs and steps due to ice and snow, initial encounter; Y93.01 Activity, walking, marching and hiking; Y92.028 Other place in mobile home as the place of occurrence of the external cause
CPT/HCPCS: 99283; 73610

== ENCOUNTER 2023-05-28 15:09 | Outpatient (CLI) | payer OTHER, SELFPAY ==
--- NOTE | 2023-05-28 13:15 | DI.RAD_ITS ---
Exam(s) XR ANKLE RT COMPLETE EXAM: XR ANKLE RT COMPLETE CLINICAL HISTORY: evaluate fracture. TECHNIQUE: 2D digital imaging was performed of the right ankle. Three images were obtained. AP, la teral and oblique views were obtained. COMPARISON: CR,XR XR ANKLE RT COMPLETE from 05/18/2023 FINDINGS: BONES: The distal right fibular fracture is less well visualized on the current examination. The tra nsverse component of the fracture is best appreciated on the AP view. No new fractures identified. No bony destructive lesion is seen. Enthesophyte is seen at the posterior calcaneus. JOINTS: The ankle mortise is normally aligned. The joint space is well maintained. SOFT TISSUE: Atherosclerosis is present. IMPRESSION: No change in alignment of the distal fibular fracture. DATA REPOSITORY: RADIATION DOSE DELIVERED:
== END 2023-05-28 15:10 | disposition home or self-care (01) ==
LOC: DIORS 15:11
PROVIDERS: Visit Provider Student in an Organized Health Care Education/Training Program
DX: S82.831A Other fracture of upper and lower end of right fibula, initial encounter for closed fracture (principal); X58.XXXA Exposure to other specified factors, initial encounter
CPT/HCPCS: 73610

== ENCOUNTER 2023-06-09 09:05 | Emergency (ER) | payer OTHER, SELFPAY ==
[2023-06-09] VITALS (11 sets, daily range): BP systolic 167–215; BP diastolic 84–114; PULSE 53–62; RESP 13–23; TEMP 36.6; O2SAT 95
--- NOTE | 2023-06-09 09:00 | RT.EKG_ITS ---
APPROVED REPORT Exam: Resting ECG Reason for Exam: dyspnea Patient Location: E HR:61 bpm ECG Measurements Heart Rate 61 AXIS WY 224 P 48 QRSd 92 QRS -39 QT 413 T 52 QTc 416 Conclusion Sinus rhythm...normal P axis, V-rate 60- 99 Prolonged WY interval...WY >220, V-rate 50- 90 Left axis deviation...QRS axis (-30,-90)
--- NOTE | 2023-06-09 09:15 | DI.CT_ITS ---
Exam(s) CT CHEST PE CTA EXAM: CT CHEST PE CTA CLINICAL HISTORY: shortness of breath. TECHNIQUE: Imaging Protocol: Axial CT angiography was performed with multi-slice acquisition and mu lti-planar reconstructions as well as axial, coronal and sagittal MIP reconstructions. CONTRAST MATERIAL: Intravenous: Omnipaque 350 Contrast volume:100 ml COMPARISON: CR,XR XR CHEST 2V PA LATERAL from 05/09/2023 FINDINGS: Exam limited by respiratory motion. Pulmonary Arteries: No evidence of filling defect to suggest pulmonary emboli. Tracheobronchial tree: Mild bilateral lower lobe bronchial wall thickening. Mediastinum and Kathi: No dominant adenopathy or fluid collection. Pulmonary parenchyma: Basilar atelectasis. No consolidation or dominant measurable mass. Mild emphys ematous changes greater in the upper lobes. Pleura: No effusion or pneumothorax. Heart: The heart is mildly dilated. Mild coronary artery calcifications are seen. Aorta: Thoracic aorta non-dilated. No aneurysm. No dissection. Upper abdomen: Small hiatal hernia. Bones: Resection of the 1st ribs bilaterally. Tubes, Catheters, and Lines: None Soft tissues: Surgical clips bilateral upper chest. IMPRESSION: No evidence of pulmonary embolism. Basilar atelectasis. No infiltrate visible. Mild bronchial wall thickening of the lower lobes. RADIATION DOSE DELIVERED: Total DLP DATA REPOSITORY: All CT scans at this facility are submitted to the National Radiology Data Registry (NRDR) Dose Index Registry (DIR) with the [employer] (ACR). RADIATION OPTIMIZATION: All CT scans at this facility use at least one of these dose optimization te chniques: automated exposure control; mA and/or kV adjustment per patient size (includes targeted exa ms where dose is matched to clinical indication); or iterative reconstruction.
[2023-06-09] MEDS: methylPREDNISolone SUCC 125 MG VIAL IVP (09:17)
[2023-06-09 09:20] LABS: Source Nasal/Nares
--- NOTE | 2023-06-09 09:23 | ED.GENADUL_ITS ---
Discharge Plan Disposition Patient Disposition: Home Condition: Stable Discharge Details Clinical Impression: Persistent shortness of breath after COVID-19 Primary Care Provider: Unknown,Unknown ED Provider: Chandler Blair Home Meds and New Rx's Prescriptions: Continued furosemide [Lasix] 20 mg tablet 10 mg PO DAILY PRN (Reason: Elevated BNP) Rx Instructions: Please take 1 tablet in the morning by mouth daily for the next 14 days omeprazole 10 mg capsule,delayed release(DR/EC) 40 mg PO DAILY gabapentin 300 mg capsule 300 mg PO BID PRN losartan [Cozaar] 50 mg tablet 50 mg PO DAILY albuterol sulfate 1.25 mg/3 mL solution for nebulization 1.25 mg inhalation Q6H PRN (Reason: shortness of breath or wheezing) Qty: 75 0RF Trelegy Ellipta 200-62.5-25 mcg blister with device 1 inh inhalation DAILY albuterol sulfate 90 mcg/actuation HFA aerosol inhaler 2 inh inhalation Q6H PRN Discharge Instructions Additional Instructions: your lab work and cat scan did not show any new concerning findings, you do have lung findings consistent with COPD follow up with your primary care provider within 1-2 weeks if you feel more ill, have worsening shortness of breath or chest pain return to the emergency department Medical Decision Making 78 yo male with hx of htn, copd, who states he has had issues with anxiety/panic attacks since having covid a few years ago comes in with complaints of feeling short of breath when he tries to sleep the past two days. He called ems this morning who gave him a neb and he now states he has no symptoms. He denies fevers, chills, chest pain, abdomen pain. He is caox4 speaking in full sentences on arrival. He has clear lungs, no jvd, no calf tenderness. Suspect anxiety given rapid resolution of symptoms, also could be copd, given his age however will check ekg/troponin, cbc,cmp and obtain cta of his chest to evaluate for PE labs and imaging unremarkable for acute findings, pt still asymptomatic and stable vitals, symptoms started over 3 hours ago and has no chest pain so do not feel delta troponin indicated. He requests d/c and given reassuring workup feel he is stable for d/c and will f/u with his pcp, return precautions given Differential Diagnosis Differential Diagnosis: PE, pneumonia, anxiety, copd Medical Records Medical records reviewed: Yes I reviewed the patient's medical records. Imaging Data Radiologic Study: Attestation: I personally reviewed and interpreted this imaging study as follows: Imaging: CT Scan Radiologist's impression: IMPRESSION: 1. Examination negative for pulmonary emboli, thoracic aortic aneurysm or dissection. 2. Superimposed upon the patient's mild diffuse centrilobular emphysema or bibasilar bronchiectasis and linear densities likely from exacerbation of the patient's chronic bronchitis. There is a likely reactive adenopathy. Suggest follow-up examination in three months' time. 3. Small hiatal hernia. Lab Data Lab results reviewed: Yes I reviewed the patient's lab results. ECG Data Attestation: I personally reviewed and interpreted this ECG (s) as follows: Prior ECG tracings: available for review Interpretation: sinus rate of 61 pr 224 no stemi HPI General Mode of arrival: EMS . Date/Time Provider Initiated Documentation: 06/09/23 09:09 . Limitations to Documentation: no limitations . Information obtained by: patient . History of Present Illness 78 year old M presents to the emergency department with the chief complaint of shortness of breath, described as moderate, Patient started experiencing this day(s) (2) and it has been intermittent. No relieving factors improve symptom(s), No exacerbating factors reported . Patient notes denies chest pain, diaphoresis and fever/chills. Patient did receive the following treatments prior to arrival, none Related Data Home Medications Medication Instructions Recorded Confirmed albuterol sulfate 90 mcg/actuation 2 inh inhalation Q6H PRN 03/29/23 06/09/23 aerosol inhaler fluticasone fur. 200 mcg-umeclid 1 inh inhalation DAILY 03/29/23 06/09/23 62.5 mcg-vilant 25 mcg inhalat.powder (Trelegy Ellipta) albuterol sulfate 1.25 mg/3 mL 1.25 mg (3 mL) inhalation Q6H PRN 04/25/23 06/09/23 solution for nebulization shortness of breath or wheezing #75 mL gabapentin 300 mg capsule 300 mg PO BID PRN 04/25/23 06/09/23 losartan 50 mg tablet (Cozaar) 50 mg PO DAILY 04/25/23 06/09/23 omeprazole 10 mg capsule,delayed 40 mg PO DAILY 04/25/23 06/09/23 release furosemide 20 mg tablet (Lasix) 10 mg PO DAILY PRN Elevated BNP 05/28/23 06/09/23 Previous Rx's Medication Instructions Recorded albuterol sulfate 1.25 mg/3 mL 1.25 mg (3 mL) inhalation Q6H PRN 04/25/23 solution for nebulization shortness of breath or wheezing #75 mL Allergies Allergy/AdvReac Type Severity Reaction Status Date / Time Milk Containing Products Allergy Mild Diarrhea Unverified 06/09/23 09:09 (Dairy) codeine AdvReac Mild Itching Unverified 06/09/23 09:09 General Stated Complaint: SOB AMANDEEP: 3 Review of Systems All systems reviewed & are unremarkable except as noted in HPI and below Constitutional Constitutional: Denies chills, Denies fever(s) and Denies weakness Cardiovascular Cardiovascular: Denies chest pain and Reports dyspnea Respiratory Respiratory: Denies cough and Reports dyspnea Gastrointestinal Gastrointestinal: Denies abdominal pain, Denies nausea and Denies vomiting Musculoskeletal Musculoskeletal: Denies joint swelling Neurologic Neurologic: Denies weakness PFSH All Active Problems (Updated 06/09/23 @ 10:35 by Chandler Blair MD) Fracture of fibula, distal, right, closed (Acute ~05/18/23) Persistent shortness of breath after COVID-19 (Acute) Social History Smoking/Tobacco Use Status: Never Smoking risk assessment performed?: Yes Alcohol Intake: current Alcohol Intake frequency: a few times a month Alcohol type: beer and hard liquor Drug use: Occasionally Substance use type: marijuana Housing: house Do you feel safe at home: Yes Do you feel safe in your relationship?: Yes Exam Const General: no acute distress Orientation: alert HENMT Head: normal to inspection Ears: external ears normal General nose exam: external nose normal Mouth: moist mucous membranes Eyes General: appearance normal, both eyes and all related structures Neck Neck: normal visual inspection Resp Effort & Inspection: normal respiratory effort and able to speak in complete sentences Auscultation: clear to auscultation bilaterally Cardio Jugular venous pressure: no JVD Rate: regular rate Heart Sounds: no murmurs Skin General skin exam: no rashes or lesions noted Neuro General: patient alert and patient oriented x3 Extrem General: normal to inspection Psych Mental Status: mental status grossly normal Course Vital Signs Vital signs: Vital Signs Temperature 36.6 C 06/09/23 09:05 Pulse 58 L 06/09/23 09:05 Respiratory Rate 22 06/09/23 09:05 Blood Pressure 215/92 H 06/09/23 09:05 Pulse Oximetry 95 06/09/23 09:05 Temperature 36.6 C 06/09/23 09:17 Temperature Source Oral 06/09/23 09:17 Pulse 58 L 06/09/23 09:17 Respiratory Rate 17 06/09/23 09:17 Respiratory Effort Non-Labored 06/09/23 09:17 Respiratory Depth Normal 06/09/23 09:17 Respiratory Pattern Normal 06/09/23 09:17 Blood Pressure 215/92 H 06/09/23 09:17 Blood Pressure Position Sitting 06/09/23 09:17 Pulse Oximetry 95 06/09/23 09:17 Oxygen Delivery Method Room Air 06/09/23 09:17 Oxygen Flow Rate 0 06/09/23 09:17 Pain Level 0 06/09/23 09:17 Lab/Test Results Lab/Test Results: Laboratory Tests Range/Units 06/09/23 09:08 COVID-19 Source Nasal/Nares
[2023-06-09 09:29] LABS: BE (Venous) 3 mmol/L (-2-3); HCO3 (Venous) 28 mmol/L (23-28); O2 Sat (Venous) 75 %; TCO2 (Venous) 25 mmol/L (24-29); pCO2 (Venous) 43 mmHg (41-51); pH (Venous) 7.42 (7.31-7.41); pO2 (Venous) 39 mmHg
[2023-06-09 09:30] LABS: Abs Immature Grans 0.01 10^3/uL (0.0-0.06); Absolute Basophil Count 0.05 10^3/uL (0.0-0.2); Absolute Eosinophil Count 0.48 10^3/uL (0.0-0.7); Absolute Lymphocyte Count 1.34 10^3/uL (1.2-3.4); Absolute Monocyte Count 0.57 10^3/uL (0.1-0.8); Absolute Neutrophil Count 3.89 10^3/uL (1.2-6.7); Basophils % 0.8; Eosinophils % 7.6; HCT 42.1 % (40.0-50.0); HGB 14.1 g/dL (13.5-17.5); Immature Grans % 0.2; Lymphocytes % 21.1; MCH 32.2 pg (27.0-33.0); MCHC 33.5 % (32.0-36.0); MCV 96 fL (80-95); MPV 9.3 fL (8.0-11.0); Neutrophils % 61.3; Platelet Count 229 10^3/uL (130-400); RBC 4.38 10^6/uL (4.36-5.78); RDW-SD 46.6 fL; WBC 6.34 10^3/uL (4.4-10.8)
[2023-06-09] MEDS: Normal Saline - Diluent 50 ML VIAL IJ (09:34)
[2023-06-09] MEDS: Omnipaque 350 MG/ML 100 ML BTL IJ (09:35)
[2023-06-09 09:57] LABS: ALT 23 U/L (16-63); AST 19 U/L (15-37); Albumin 3.8 g/dL (3.4-5.0); Alkaline Phosphatase 52 U/L (46-116); Anion Gap 8.9 mmol/L (3-11); BUN 17 mg/dL (7-18); Bilirubin, Total 0.7 mg/dL (0.2-1.0); CO2 28.1 mmol/L (21.0-32.0); Calcium 9.4 mg/dL (8.5-10.1); Chloride 104 mmol/L (98-107); Estimated GFR 77.52 (mL/min/1.73m2); Glucose 101 mg/dL (74-106); Magnesium 1.9 mg/dL (1.8-2.4); NT-proBNP 665 pg/mL (<300); Potassium 4.1 mmol/L (3.5-5.1); Sodium 141 mmol/L (136-145); TSH (W/Ref FT4) 2.45 uIU/mL (0.36-3.74); Total Protein 7.5 g/dL (6.4-8.2); Troponin I < 50 ng/L (<or=60)
[2023-06-09 10:09] LABS: COVID-19 PCR Negative (Negative)
--- NOTE | 2023-06-09 10:17 | DI.VRAD_ITS ---
PROCEDURE INFORMATION: Exam: CTA Chest With Contrast Exam date and time: 06/09/2023 9:39 AM Age: 78 years old Clinical indication: Other: Shortness of breath TECHNIQUE: Imaging protocol: Computed tomographic angiography of the chest with contrast. Exam focused on the arteries. 3D rendering (Not supervised by radiologist): MIP and/or 3D reconstructed images were created by the technologist. Radiation optimization: All CT scans at this facility use at least one of these dose optimization techniques: automated exposure control; mA and/or kV adjustment per patient size (includes targeted exams where dose is matched to clinical indication); or iterative reconstruction. Contrast material: OMNI 350; Contrast volume: 100 ml; Contrast route: INTRAVENOUS (IV); COMPARISON: CR XR CHEST 2V PA LATERAL 05/09/2023 7:16 PM FINDINGS: Pulmonary arteries: Normal. No pulmonary emboli. Aorta: Small amount of calcified plaque. No aortic aneurysm. No aortic dissection. Thyroid: The thyroid gland is normal. Lungs: Mild diffuse centrilobular emphysema predominantly in the upper lung zones. Scattered areas of bilateral bibasilar linear densities that were present on the prior chest radiograph may indicate chronic fibrosis or atelectasis. No lobar consolidations. Scattered areas of bronchiectasis particularly in the right lower lobe. Bronchial wall thickening mucous plugging particularly in the right lower lobe. Pleural spaces: Unremarkable. No pneumothorax. No pleural effusion. Heart: Mild cardiomegaly. Minimal amount of coronary artery calcification. No pericardial effusion. Lymph nodes: Lymph nodes right hilar lymph nodes measuring 1.1 cm. Subcarinal lymph node measures 0.9 cm. Diaphragm: Small hiatal hernia. Spleen: The spleen is normal. Adrenal glands: The adrenal glands are normal. Bones/joints: Unremarkable. No acute fracture. Soft tissues: Unremarkable. IMPRESSION: 1. Examination negative for pulmonary emboli, thoracic aortic aneurysm or dissection. 2. Superimposed upon the patient's mild diffuse centrilobular emphysema or bibasilar bronchiectasis and linear densities likely from exacerbation of the patient's chronic bronchitis. There is a likely reactive adenopathy. Suggest follow-up examination in three months' time. 3. Small hiatal hernia. Dictated and Authenticated by: Desean Pineda MD. Ordering:FELICIA Arteaga MD
== END 2023-06-09 10:46 | disposition home or self-care (01) ==
PROVIDERS: Emergency Provider Emergency Medicine
DX: R06.02 Shortness of breath (principal); U09.9 Post COVID-19 condition, unspecified; J44.9 Chronic obstructive pulmonary disease, unspecified; F41.9 Anxiety disorder, unspecified; I10 Essential (primary) hypertension; Z11.52 Encounter for screening for COVID-19; Z79.899 Other long term (current) drug therapy
CPT/HCPCS: 36415; 71275; 80053; 82805; 87635; 93005; 96374; 99285; 83735; 83880; 84443; 84484; 85025; 93010; 99284; J2930; J3490

== ENCOUNTER → 2023-09-03 01:05 | Outpatient (CLI) | payer OTHER, SELFPAY ==
--- NOTE | 2023-09-03 15:16 | DI.RAD_ITS ---
Exam(s) XR WRIST LT COMPLETE EXAM: XR WRIST LT COMPLETE CLINICAL HISTORY: [id number],LT WRIST PAIN, DJD. TECHNIQUE: 2D digital imaging was performed of the left wrist. Three images were obtained. PA, obl ique and lateral views were obtained. COMPARISON: No exams were available for comparison FINDINGS: BONES: No acute fracture is present. No bony destructive lesion is seen. JOINTS: The carpal bones are normally aligned. At the 1st CMC joint there are marked degenerative edgar nges characterized by joint space narrowing, subchondral sclerosis and osteophytes. There is also ma rked narrowing of the scaphoid radial articulation. There is deformity of the articular surface of t he distal radius with sclerosis present. 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 DATA REPOSITORY: RADIATION DOSE DELIVERED:
--- NOTE | 2023-09-03 15:16 | DI.RAD_ITS ---
Exam(s) XR LUMBAR SPINE COMPLETE EXAM: XR LUMBAR SPINE COMPLETE CLINICAL HISTORY: [id number].LOW BACK PAIN, LUMBAR STENOSIS,M54.50. TECHNIQUE: 2D digital imaging was performed of the lumbar spine. Five images were obtained. AP, la teral, right oblique, left oblique and L5-S1 spot views were obtained. COMPARISON: No exams were available for comparison FINDINGS: BONES: No fracture or destructive lesion. There are endplate osteophytes at all levels of the lumbar spine. Degenerative changes of the facets are seen particularly from L3-4 through L5-S1. DISKS: There is disc space narrowing at every level of the lumbar spine with vacuum discs at L4-5 and L5-S1. ALIGNMENT: There is a moderate right convex lumbar scoliosis. No spondylolysis or spondylolisthesis. SOFT TISSUE: Vascular calcification is seen at the abdominal aorta. IMPRESSION: Marked degenerative changes are seen in the lumbar spine as described above. DATA REPOSITORY: RADIATION DOSE DELIVERED:
== END ==
PROVIDERS: Visit Provider Physician Assistant
DX: M25.532 Pain in left wrist (principal)
CPT/HCPCS: 72110; 73110

== ENCOUNTER 2023-09-17 10:01 | Emergency (ER) | payer OTHER, SELFPAY ==
--- NOTE | 2023-09-17 10:00 | DI.CT_ITS ---
Exam(s) CT RENAL COLIC WO EXAM: CT RENAL COLIC WO CLINICAL HISTORY: Left Flank pain. TECHNIQUE: Imaging Protocol: Axial computed tomography images with coronal and sagittal reformatted images were created and reviewed. Oral: no COMPARISON: CT CT CHEST PE CTA from 06/09/2023 FINDINGS: Lung Bases: Bibasilar scarring versus atelectasis. Liver: Normal density. No suspicious mass. Gallbladder and biliary tract: No radiodense calculus or biliary dilation. Pancreas: Normal density, no abnormal calcifications or inflammatory process. Spleen: Normal. Kidneys: Normal size, contour and axis. No radiodense stones or obstructive uropathy. No suspicious m asses seen. Adrenal glands: No masses seen. Lymph nodes: Within normal limits. Vasculature: Abdominal aorta non-dilated. Soft tissues: Small fatty containing right inguinal hernia. Small fatty containing umbilical hernia. Bladder: Mild diffuse wall thickening. Well distended. No mass or calculi. Bowel: Diverticulosis. No evidence of diverticulitis. No obstruction or bowel wall thickening. Peritoneal cavity: No ascites, collection or mesenteric inflammatory response. Reproductive organs: Prostate enlarged. Bones: Scoliosis and advanced degenerative changes in the spine. IMPRESSION: No acute abnormality in the abdomen or pelvis. Enlarged prostate. Bladder wall thickening. RADIATION DOSE DELIVERED: Total DLP Total DLP Total DLP DATA REPOSITORY: All CT scans at this facility are submitted to the National Radiology Data Registry (NRDR) Dose Index Registry (DIR) with the [employer] (ACR). RADIATION OPTIMIZATION: All CT scans at this facility use at least one of these dose optimization te chniques: automated exposure control; mA and/or kV adjustment per patient size (includes targeted exa ms where dose is matched to clinical indication); or iterative reconstruction.
[2023-09-17 10:02] VITALS: BP 188/101; PULSE 66; RESP 16; TEMP 36.6; O2SAT 95
--- NOTE | 2023-09-17 10:10 | ED.GENADUL_ITS ---
Discharge Plan Disposition Patient Disposition: Home Condition: Stable Discharge Details Clinical Impression: Acute UTI Primary Care Provider: Unknown,Unknown ED Provider: Jessica Westfall Home Meds and New Rx's Prescriptions: New cephalexin 500 mg capsule 500 mg PO BID 10 Days Qty: 20 0RF Rx Instructions: Take one capsule by mouth twice daily x 10 days Continued furosemide [Lasix] 20 mg tablet 10 mg PO DAILY PRN (Reason: Elevated BNP) Rx Instructions: Please take 1 tablet in the morning by mouth daily for the next 14 days omeprazole 10 mg capsule,delayed release(DR/EC) 40 mg PO DAILY gabapentin 300 mg capsule 300 mg PO BID PRN losartan [Cozaar] 50 mg tablet 50 mg PO DAILY albuterol sulfate 1.25 mg/3 mL solution for nebulization 1.25 mg inhalation Q6H PRN (Reason: shortness of breath or wheezing) Qty: 75 0RF Trelegy Ellipta 200-62.5-25 mcg blister with device 1 inh inhalation DAILY albuterol sulfate 90 mcg/actuation HFA aerosol inhaler 2 inh inhalation Q6H PRN Discharge Instructions Instructions: Urinary Tract Infection in Men (ED) Additional Instructions: It appears you have a urinary tract infection. No evidence of kidney stones or other explanation for your pain. Please take the antibiotic as directed with yogurt or probiotic twice daily. Follow up with primary care provider in 3-5 days. Return to ED sooner if any worsening or concerns. Please take Tylenol or Ibuprofen with food every 4-6 hours as needed for pain and swelling. Referrals: Primary Care Provider [Outside] - 1 week HPI General Mode of arrival: EMS . Date/Time Provider Initiated Documentation: 09/17/23 10:08 . Limitations to Documentation: no limitations . Information obtained by: patient, EMS, RN notes reviewed and old records reviewed . HPI Narrative: 78 year old male presents to the ED with left flank pain which began yesterday. He did take some Naproxen at 0730 this am which seems to help. Denies nausea, vomiting, no fever or chills. No recent injuries. Pain radiates around to his left lower abdomen. Past medical history includes sleep apnea, hypertension Related Data Home Medications Medication Instructions Recorded Confirmed albuterol sulfate 90 mcg/actuation 2 inh inhalation Q6H PRN 03/29/23 09/17/23 aerosol inhaler fluticasone fur. 200 mcg-umeclid 1 inh inhalation DAILY 03/29/23 06/09/23 62.5 mcg-vilant 25 mcg inhalat.powder (Trelegy Ellipta) albuterol sulfate 1.25 mg/3 mL 1.25 mg (3 mL) inhalation Q6H PRN 04/25/23 09/17/23 solution for nebulization shortness of breath or wheezing #75 mL gabapentin 300 mg capsule 300 mg PO BID PRN 04/25/23 09/17/23 losartan 50 mg tablet (Cozaar) 50 mg PO DAILY 04/25/23 09/17/23 omeprazole 10 mg capsule,delayed 40 mg PO DAILY 04/25/23 09/17/23 release furosemide 20 mg tablet (Lasix) 10 mg PO DAILY PRN Elevated BNP 05/28/23 09/17/23 cephalexin 500 mg capsule 500 mg PO BID UTI 10 days #20 caps 09/17/23 Previous Rx's Medication Instructions Recorded albuterol sulfate 1.25 mg/3 mL 1.25 mg (3 mL) inhalation Q6H PRN 04/25/23 solution for nebulization shortness of breath or wheezing #75 mL cephalexin 500 mg capsule 500 mg PO BID UTI 10 days #20 caps 09/17/23 Allergies Allergy/AdvReac Type Severity Reaction Status Date / Time Milk Containing Products Allergy Mild Diarrhea Unverified 09/17/23 11:02 (Dairy) codeine AdvReac Mild Itching Unverified 09/17/23 11:02 General Stated Complaint: FlankPain AMANDEEP: 3 Review of Systems All systems reviewed & are unremarkable except as noted in HPI and below Gastrointestinal Gastrointestinal: Reports abdominal pain, Denies diarrhea, Denies nausea and Denies vomiting Genitourinary Genitourinary: Reports as per HPI and Reports flank pain Exam Narrative Exam Narrative: Constitutional: Alert and oriented x3. Appears stated age. Normal body habitus. Head: Normocephalic, no trauma. Eyes: Pupils PERRL, Red reflex noted, EOM's intact. Eyelids symmetrical without lesions, discharge, or swelling. ENT: Bilateral TM's WNL, External ear normal to inspection, no mastoid TTP, swelling, or erythema, Nasal turbinates WNL, no nasal discharge. Normal dentition, Posterior pharynx WNL, no exudate. Chest: RRR, Normal S1, S2, distal pulses intact. Resp: Lungs clear to auscultation bilaterally, no wheezes, rales, or rhonchi. Abdomen: Soft, non-distended, Normoactive bowel sounds all 4 quads. Musculoskeletal: Normal gait, 5/5 strength to all four extremities. Skin: No suspicious rashes or lesions. Capillary refill less than 2 sec. Neurologic: Cranial nerves II-XII intact. Alert and oriented x 3. Motor: No deficits noted. Sensory: Intact bilaterally all 4 extremities. Reflexes: DTR's intact bilaterally.. Hematologic/Lymphatic: No ecchymosis, no lymphadenopathy. Course Vital Signs Vital signs: Vital Signs Temperature 36.6 C 09/17/23 10:02 Pulse 66 09/17/23 10:02 Respiratory Rate 16 09/17/23 10:02 Blood Pressure 188/101 H 09/17/23 10:02 Pulse Oximetry 95 09/17/23 10:02 Temperature 36.6 C 09/17/23 10:02 Temperature Source Temporal Artery Scan 09/17/23 10:02 Pulse 66 09/17/23 10:02 Respiratory Rate 16 09/17/23 10:02 Blood Pressure 188/101 H 09/17/23 10:02 Blood Pressure Position Supine 09/17/23 10:02 Pulse Oximetry 95 09/17/23 10:02 Oxygen Delivery Method Room Air 09/17/23 10:02 Oxygen Flow Rate 0 09/17/23 10:02 Pain Level 9 09/17/23 10:02 Medical Decision Making 78 year old male presents to the ED with left flank pain which began yesterday. He did take some Naproxen at 0730 this am which seems to help. Denies nausea, vomiting, no fever or chills. No recent injuries. Pain radiates around to his left lower abdomen. Past medical history includes sleep apnea, hypertension Workup ordered including CBC CMP, urinalysis, CT abdomen pelvis without contrast. Differential diagnosis includes not to musculoskeletal pain, kidney stone, UTI, pyelonephritis, diverticulitis. Urinalysis shows trace ketones, small leukocytes 20-50 WBCs, cultures pending at this time. BUN 27 creatinine 1.6, patient was given 500 cc normal saline bolus, Zofran and Toradol. Cephalexin 500 mg twice daily for the next 10 days. Discussed home care strict return instructions and follow-up care. Patient verbalized understanding. Ambulatory upon discharge. This text was generated using [email or web address] dictation system, please disregard any oddities of phrase or misspellings. Imaging Data Radiologic Study: Imaging: CT Scan Radiologist's impression: Oral: no COMPARISON: CT CT CHEST PE CTA from 06/09/2023 FINDINGS: Lung Bases: Bibasilar scarring versus atelectasis. Liver: Normal density. No suspicious mass. Gallbladder and biliary tract: No radiodense calculus or biliary dilation. Pancreas: Normal density, no abnormal calcifications or inflammatory process. Spleen: Normal. Kidneys: Normal size, contour and axis. No radiodense stones or obstructive uropathy. No suspicious masses seen. Adrenal glands: No masses seen. Lymph nodes: Within normal limits. Vasculature: Abdominal aorta non-dilated. Soft tissues: Small fatty containing right inguinal hernia. Small fatty containing umbilical hernia. Bladder: Mild diffuse wall thickening. Well distended. No mass or calculi. Bowel: Diverticulosis. No evidence of diverticulitis. No obstruction or bowel wall thickening. Peritoneal cavity: No ascites, collection or mesenteric inflammatory response. Reproductive organs: Prostate enlarged. Bones: Scoliosis and advanced degenerative changes in the spine. IMPRESSION: No acute abnormality in the abdomen or pelvis. Enlarged prostate. Bladder wall thickening. Lab Data Lab results reviewed: Yes I reviewed the patient's lab results. Labs: 09/17/23 10:10 Urine - Reflex from Ua Urine Culture - Pending Laboratory Tests Range/Units 09/17/23 09/17/23 10:10 10:20 WBC (4.4-10.8) 10^3/uL 5.93 RBC (4.36-5.78) 10^6/uL 4.34 L Hgb (13.5-17.5) g/dL 13.7 Hct (40.0-50.0) % 42.2 MCV (80-95) fL 97 H MCH (27.0-33.0) pg 31.6 MCHC (32.0-36.0) % 32.5 RDW (11.8-14.1) % 14.2 H Plt Count (130-400) 10^3/uL 261 MPV (8.0-11.0) fL 9.0 Immature Gran % 0.3 Neutrophils % 60.1 Lymphocytes % 23.4 Monocytes % 10.3 Eosinophils % 5.1 Basophils % 0.8 Nucleated RBC % (0.0-0.3) % 0.0 Absolute Neutrophils (1.2-6.7) 10^3/uL 3.56 Absolute Lymphocytes (1.2-3.4) 10^3/uL 1.39 Absolute Monocytes (0.1-0.8) 10^3/uL 0.61 Absolute Eosinophils (0.0-0.7) 10^3/uL 0.30 Absolute Basophils (0.0-0.2) 10^3/uL 0.05 Sodium (136-145) mmol/L 144 Potassium (3.5-5.1) mmol/L 4.6 Chloride (98-107) mmol/L 106 Carbon Dioxide (21.0-32.0) mmol/L 31.4 Anion Gap (3-11) mmol/L 6.6 BUN (7-18) mg/dL 27 H Creatinine (0.70-1.30) mg/dL 1.6 H Est GFR (CKD-EPI 2020) (mL/min/1.73m2) 44.10 Glucose (74-106) mg/dL 101 Calcium (8.5-10.1) mg/dL 8.9 Total Bilirubin (0.2-1.0) mg/dL 0.6 AST (15-37) U/L 17 ALT (16-63) U/L 22 Alkaline Phosphatase (46-116) U/L 44 L Total Protein (6.4-8.2) g/dL 7.2 Albumin (3.4-5.0) g/dL 3.7 Urine Color (Yellow) Yellow Urine Clarity (Clear) Clear Urine pH (5-8) 5.5 Ur Specific [place] (1.005-1.025) 1.025 Urine Protein (Neg-Trace) mg/dL Negative Urine Ketones (Negative) mg/dL Trace H Urine Blood (Negative) Negative Urine Nitrite (Negative) Negative Urine Bilirubin (Negative) Negative Urine Urobilinogen (Up to 0.2) mg/dL 0.2 Ur Leukocyte Esterase (Negative) Small H Urine RBC (0-2) HPF 0-2 Urine WBC (0-5) HPF 20-50 H Ur Epithelial Cells (Negative) HPF Rare Urine Crystals (Negative) HPF Negative Urine Bacteria (Negative) HPF Rare Urine Casts (Negative) LPF 5-10 Hyaline Urine Mucus (Negative) Negative Ur Culture Indicated? Yes Urine Glucose (Negative) mg/dL Negative Quality:SDOH Health Related Social Needs: No Data to Display PFSH All Active Problems (Updated 09/17/23 @ 11:27 by Jessica Westfall NP) Acute UTI (Acute) Fracture of fibula, distal, right, closed (Acute ~05/18/23) Persistent shortness of breath after COVID-19 (Acute) Social History Smoking/Tobacco Use Status: Never Smoking risk assessment performed?: Yes Alcohol Intake: current Alcohol Intake frequency: a few times a month Alcohol type: beer and hard liquor Drug use: Occasionally Substance use type: marijuana Housing: house Do you feel safe at home: Yes Do you feel safe in your relationship?: Yes
[2023-09-17 10:30] LABS: Abs Immature Grans 0.02 10^3/uL (0.0-0.06); Absolute Basophil Count 0.05 10^3/uL (0.0-0.2); Absolute Lymphocyte Count 1.39 10^3/uL (1.2-3.4); Absolute Monocyte Count 0.61 10^3/uL (0.1-0.8); Absolute Neutrophil Count 3.56 10^3/uL (1.2-6.7); Basophils % 0.8; Eosinophils % 5.1; HCT 42.2 % (40.0-50.0); HGB 13.7 g/dL (13.5-17.5); Immature Grans % 0.3; Lymphocytes % 23.4; MCH 31.6 pg (27.0-33.0); MCHC 32.5 % (32.0-36.0); MCV 97 fL (80-95); Monocytes % 10.3; Neutrophils % 60.1; Platelet Count 261 10^3/uL (130-400); RBC 4.34 10^6/uL (4.36-5.78); RDW 14.2 % (11.8-14.1); RDW-SD 50.8 fL; WBC 5.93 10^3/uL (4.4-10.8)
[2023-09-17] MEDS: Ketorolac 30 MG/ML VIAL IVP (10:33)
[2023-09-17] MEDS: Ondansetron 4 MG/2 ML VIAL IVP (10:34)
[2023-09-17] MEDS: Normal Saline 500 ML IV (10:34)
[2023-09-17 10:45] LABS: Bilirubin Negative (Negative); Blood Negative (Negative); Clarity Clear (Clear); Glucose Negative (Negative); Ketones Trace mg/dL (Negative); Leukocyte Esterase Small (Negative); Nitrite Negative (Negative); Specific Gravity 1.025 (1.005-1.025); Urobilinogen 0.2 mg/dL (Up to 0.2); pH 5.5 (5-8)
[2023-09-17 10:45] LABS: ALT 22 U/L (16-63); AST 17 U/L (15-37); Albumin 3.7 g/dL (3.4-5.0); Alkaline Phosphatase 44 U/L (46-116); Anion Gap 6.6 mmol/L (3-11); BUN 27 mg/dL (7-18); Bilirubin, Total 0.6 mg/dL (0.2-1.0); CO2 31.4 mmol/L (21.0-32.0); CREATININE 1.6 mg/dL (0.70-1.30); Calcium 8.9 mg/dL (8.5-10.1); Chloride 106 mmol/L (98-107); Glucose 101 mg/dL (74-106); Potassium 4.6 mmol/L (3.5-5.1); Sodium 144 mmol/L (136-145); Total Protein 7.2 g/dL (6.4-8.2)
[2023-09-17 11:00] LABS: Bacteria Rare HPF (Negative); C & S Indicated? Yes; Casts 5-10 Hyaline LPF (Negative); Crystals Negative HPF (Negative); Epithelial Cells Rare HPF (Negative); Mucus Negative (Negative); RBC 0-2 HPF (0-2); WBC 20-50 HPF (0-5)
[2023-09-17] MEDS: Cephalexin 500 MG CAP PO (11:35)
[2023-09-17 11:42] VITALS: BP 194/99; PULSE 55; RESP 16; O2SAT 96
--- NOTE | 2023-09-19 09:50 | NUR.NOTE ---
Accessed Pt chart to list the antibiotics that were prescribed for the UTI. Pt's specimen is growing MRSA. Document given to Dr Vázquez for review.:
--- NOTE | 2023-09-19 10:24 | ED.FU.B_ITS ---
Date of service: 09/17/23 Follow Up Plan: We received culture results from the lab. The patient does have gram-positive moirah only 10-50,000 colony units. They are saying that this is MRSA. The culture is not finalized. The patient was evaluated by his PCP already. He did not start the antibiotics prescribed from the emergency department. He has no urinary symptoms, no fever. He reports that his back pain symptoms have already improved. At this time I do not feel a change in his treatment plan is indicated. Will wait for culture results to finalize. He has close PCP follow- up and we discussed return precautions to the emergency department.
== END 2023-09-17 11:46 | disposition home or self-care (01) ==
PROVIDERS: Emergency Provider Registered Nurse Emergency
DX: N39.0 Urinary tract infection, site not specified (principal)
CPT/HCPCS: 80053; 87077; 96361; 96374; 96375; 99284; 74176; 81003; 81015; 85025; 87086; 87186; J1885; J2405

== ENCOUNTER 2023-09-23 13:11 | Emergency (ER) | payer OTHER, SELFPAY ==
[2023-09-23] VITALS (13 sets, daily range): BP systolic 173–197; BP diastolic 84–101; PULSE 82–103; RESP 13–22; TEMP 36.8; O2SAT 91–98
--- NOTE | 2023-09-23 14:00 | DI.CT_ITS ---
Exam(s) CT HEAD WO EXAM: CT HEAD WO CLINICAL HISTORY: Headache. TECHNIQUE: Imaging Protocol: Axial computed tomography images with coronal and sagittal reformatted images were created and reviewed COMPARISON: CT CT HEAD WO from 05/09/2023 FINDINGS: Ventricles and Extra axial spaces: Normal in size and morphology for the patient's age. Hemorrhage: None. Cerebral parenchyma: No evidence of acute infarct or mass. Mild atrophy. White matter changes smal l disease. Midline shift: None. Brainstem/Cerebellum: Normal. Calvarium: Normal. Visualized Paranasal sinuses:Clear. Mastoids: Clear. Soft Tissues: Unremarkable. ORBITS: Unremarkable. PITUITARY: Not enlarged. IMPRESSION: No acute intracranial process. RADIATION DOSE DELIVERED: 779.68mGy.cm Total DLP DATA REPOSITORY: All CT scans at this facility are submitted to the National Radiology Data Registry (NRDR) Dose Index Registry (DIR) with the [employer] (ACR). RADIATION OPTIMIZATION: All CT scans at this facility use at least one of these dose optimization te chniques: automated exposure control; mA and/or kV adjustment per patient size (includes targeted exa ms where dose is matched to clinical indication); or iterative reconstruction.
--- NOTE | 2023-09-23 14:03 | ED.GENADUL_ITS ---
Discharge Plan Disposition Patient Disposition: Home Condition: Stable Discharge Details Clinical Impression: Headache, COPD (chronic obstructive pulmonary disease), Hypertension Primary Care Provider: Unknown,Unknown ED Provider: Chandler Blair Home Meds and New Rx's Prescriptions: New prednisone 20 mg tablet 60 mg PO DAILY 4 Days Qty: 12 0RF Continued albuterol sulfate 90 mcg/actuation HFA aerosol inhaler 2 inh inhalation Q6H PRN No Action furosemide [Lasix] 20 mg tablet 10 mg PO DAILY PRN (Reason: Elevated BNP) Rx Instructions: Please take 1 tablet in the morning by mouth daily for the next 14 days omeprazole 10 mg capsule,delayed release(DR/EC) 40 mg PO DAILY gabapentin 300 mg capsule 300 mg PO BID PRN losartan [Cozaar] 50 mg tablet 50 mg PO DAILY albuterol sulfate 1.25 mg/3 mL solution for nebulization 1.25 mg inhalation Q6H PRN (Reason: shortness of breath or wheezing) Qty: 75 0RF cephalexin 500 mg capsule 500 mg PO BID 10 Days Qty: 20 0RF Rx Instructions: Take one capsule by mouth twice daily x 10 days Trelegy Ellipta 200-62.5-25 mcg blister with device 1 inh inhalation DAILY Discharge Instructions Additional Instructions: Your blood work and imaging did not show concerning findings today. Blood pressure readings at home continue to be over 160 he can increase your dose of losartan to 100 mg Follow-up with your primary care provider within 1 to 2 weeks If you feel more ill, have severe worsening pain or difficulty breathing return to the emergency department for reevaluation HPI General Mode of arrival: EMS . Date/Time Provider Initiated Documentation: 09/23/23 13:32 . Limitations to Documentation: no limitations . Information obtained by: patient . History of Present Illness 78 year old M presents to the emergency department with the chief complaint of Nausea vomiting, described as moderate, Patient started experiencing this week(s) (1) and it has been intermittent. No relieving factors improve symptom(s), No exacerbating factors reported . Patient notes cough and headaches; denies chest pain and fever/chills. Patient did receive the following treatments prior to arrival, none Related Data Home Medications Medication Instructions Recorded Confirmed albuterol sulfate 90 mcg/actuation 2 inh inhalation Q6H PRN 03/29/23 09/17/23 aerosol inhaler fluticasone fur. 200 mcg-umeclid 1 inh inhalation DAILY 03/29/23 06/09/23 62.5 mcg-vilant 25 mcg inhalat.powder (Trelegy Ellipta) albuterol sulfate 1.25 mg/3 mL 1.25 mg (3 mL) inhalation Q6H PRN 04/25/23 09/17/23 solution for nebulization shortness of breath or wheezing #75 mL gabapentin 300 mg capsule 300 mg PO BID PRN 04/25/23 09/17/23 losartan 50 mg tablet (Cozaar) 50 mg PO DAILY 04/25/23 09/17/23 omeprazole 10 mg capsule,delayed 40 mg PO DAILY 04/25/23 09/17/23 release furosemide 20 mg tablet (Lasix) 10 mg PO DAILY PRN Elevated BNP 05/28/23 09/17/23 cephalexin 500 mg capsule 500 mg PO BID UTI 10 days #20 caps 09/17/23 prednisone 20 mg tablet 60 mg (3 x 20 mg) PO DAILY 4 days 09/23/23 #12 tabs Previous Rx's Medication Instructions Recorded albuterol sulfate 1.25 mg/3 mL 1.25 mg (3 mL) inhalation Q6H PRN 04/25/23 solution for nebulization shortness of breath or wheezing #75 mL cephalexin 500 mg capsule 500 mg PO BID UTI 10 days #20 caps 09/17/23 prednisone 20 mg tablet 60 mg (3 x 20 mg) PO DAILY 4 days 09/23/23 #12 tabs Allergies Allergy/AdvReac Type Severity Reaction Status Date / Time codeine AdvReac Mild Itching Unverified 09/23/23 14:33 Milk Containing Products AdvReac Mild Diarrhea Unverified 09/23/23 14:35 (Dairy) General Stated Complaint: RespSymp AMANDEEP: 3 Review of Systems All systems reviewed & are unremarkable except as noted in HPI and below Constitutional Constitutional: Denies chills, Denies fever(s) and Denies weakness Cardiovascular Cardiovascular: Denies chest pain and Denies dyspnea Respiratory Respiratory: Reports cough and Denies dyspnea Gastrointestinal Gastrointestinal: Denies abdominal pain, Reports nausea and Reports vomiting Musculoskeletal Musculoskeletal: Denies joint swelling Neurologic Neurologic: Denies weakness Psychiatric Psychiatric: Denies depression Exam Const General: no acute distress Orientation: alert HENMT Head: normal to inspection Ears: external ears normal General nose exam: external nose normal Mouth: moist mucous membranes Eyes General: appearance normal, both eyes and all related structures Neck Neck: normal visual inspection Resp Effort & Inspection: normal respiratory effort and able to speak in complete sentences Auscultation: wheezes Cardio Jugular venous pressure: no JVD Rate: regular rate Heart Sounds: no murmurs GI Palpation: soft and nontender Skin General skin exam: no rashes or lesions noted Neuro General: patient alert and patient oriented x3 Extrem General: normal to inspection Psych Mental Status: mental status grossly normal Course Vital Signs Vital signs: Vital Signs Temperature 36.8 C 09/23/23 13:20 Pulse 82 09/23/23 13:20 Respiratory Rate 18 09/23/23 13:20 Blood Pressure 197/101 H 09/23/23 13:20 Pulse Oximetry 94 09/23/23 13:20 Temperature 36.8 C 09/23/23 13:20 Temperature Source Temporal Artery Scan 09/23/23 13:20 Pulse 82 09/23/23 13:20 Respiratory Rate 18 09/23/23 13:20 Respiratory Effort Short of Breath 09/23/23 13:24 Blood Pressure 197/101 H 09/23/23 13:20 Blood Pressure Position Sitting 09/23/23 13:20 Pulse Oximetry 94 09/23/23 13:20 Oxygen Delivery Method Room Air 09/23/23 13:20 Oxygen Flow Rate 0 09/23/23 13:20 Pain Level 7 09/23/23 13:20 Medical Decision Making 78-year-old male with a history of COPD, hypertension, who comes in with 1 week of intermittent nausea and vomiting along with diarrhea, along with a cough and headaches. He denies any difficulty breathing, chest pain, fevers, neck stiffness. He is alert and oriented x 4 on arrival speaking in full sentences in no distress. He says he normally gets the headaches when he starts vomiting. Has a mild frontal headache now. He has no focal deficits, cranial nerves II through XII are intact and he has no meningismus. He is hypertensive on arrival otherwise stable vital signs. Does have wheezing at the apices bilaterally otherwise clear lungs, soft nontender abdomen. Given his nausea vomiting and diarrhea suspect he could have gastroenteritis, and the headache is likely due to dehydration. Will obtain CBC, CMP, chest x-ray, treat her symptoms with droperidol, DuoNeb and Solu-Medrol. His symptoms of a headache are not thunderclap in etiology so doubt subarachnoid hemorrhage but will obtain a CT head to evaluate for hemorrhage. No findings on history or exam to suggest [employer] infection. No abdominal tenderness so doubt surgical pathology and do not feel imaging of his abdomen acutely is indicated. Labs and imaging unremarkable, patient feels significantly better, BP now 160/92. He states they got lowered to 50 mg from 100 mg losartan 6 months ago. Advised if he continues to have high red blood pressure readings at home he should increase to 100 mg after consulting with his primary care provider, he is stable for discharge, advised to follow-up with his primary care provider and return precautions given Differential Diagnosis Differential Diagnosis: Dehydration, gastroenteritis, COPD exacerbation Medical Records Medical records reviewed: Yes I reviewed the patient's medical records. Imaging Data Radiologic Study: Attestation: I personally reviewed and interpreted this imaging study as follows: Imaging: X-Ray Radiologist's impression: No acute findings Radiologic Study #2: Attestation: I personally reviewed and interpreted this imaging study as follows: Imaging: CT Scan My impression: No acute findings Radiologist's impression: No acute findings Lab Data Lab results reviewed: Yes I reviewed the patient's lab results. Quality:SDOH Health Related Social Needs: No Data to Display PFSH All Active Problems (Updated 09/23/23 @ 15:54 by Chandler Blair MD) Hypertension (Chronic) COPD (chronic obstructive pulmonary disease) (Chronic) Headache (Acute) Acute UTI (Acute) Fracture of fibula, distal, right, closed (Acute ~05/18/23) Persistent shortness of breath after COVID-19 (Acute) Social History Smoking/Tobacco Use Status: Never Smoking risk assessment performed?: Yes Alcohol Intake: current Alcohol Intake frequency: a few times a month Alcohol type: beer and hard liquor Drug use: Occasionally Substance use type: marijuana Housing: house Do you feel safe at home: Yes Do you feel safe in your relationship?: Yes
[2023-09-23 14:18] LABS: BE (Venous) 0 mmol/L (-2-3); HCO3 (Venous) 26 mmol/L (23-28); O2 Sat (Venous) 57 %; TCO2 (Venous) 23 mmol/L (24-29); pCO2 (Venous) 46 mmHg (41-51); pH (Venous) 7.36 (7.31-7.41); pO2 (Venous) 32 mmHg
[2023-09-23 14:19] LABS: Abs Immature Grans 0.02 10^3/uL (0.0-0.06); Absolute Basophil Count 0.04 10^3/uL (0.0-0.2); Absolute Eosinophil Count 0.01 10^3/uL (0.0-0.7); Absolute Lymphocyte Count 0.74 10^3/uL (1.2-3.4); Absolute Monocyte Count 0.36 10^3/uL (0.1-0.8); Absolute Neutrophil Count 7.56 10^3/uL (1.2-6.7); Basophils % 0.5; Eosinophils % 0.1; HCT 44.3 % (40.0-50.0); HGB 14.8 g/dL (13.5-17.5); Immature Grans % 0.2; Lymphocytes % 8.5; MCH 31.8 pg (27.0-33.0); MCHC 33.4 % (32.0-36.0); MCV 95 fL (80-95); MPV 8.8 fL (8.0-11.0); Monocytes % 4.1; Neutrophils % 86.6; Platelet Count 214 10^3/uL (130-400); RBC 4.65 10^6/uL (4.36-5.78); RDW 14.2 % (11.8-14.1); RDW-SD 49.3 fL; WBC 8.73 10^3/uL (4.4-10.8)
[2023-09-23] MEDS: methylPREDNISolone SUCC 125 MG VIAL IVP (14:25)
[2023-09-23] MEDS: Droperidol 5 MG/2 ML VIAL 1.25 MG IVP (14:25)
[2023-09-23] MEDS: Acetaminophen 500 MG TAB 1000 MG PO (14:25)
[2023-09-23] MEDS: Albuterol/Ipratropium 3 ML UPD VIAL UPD (14:25)
[2023-09-23] MEDS: Normal Saline 1,000 ML 1000 ML IV (14:30)
[2023-09-23 14:34] LABS: INR 1.1 (0.9-1.1); PTT Activated 23.9 sec (23.6-32.8); Prothrombin Time 11.4 sec (9.1-11.1)
[2023-09-23 14:37] LABS: ALT 20 U/L (16-63); AST 18 U/L (15-37); Albumin 3.7 g/dL (3.4-5.0); Alkaline Phosphatase 52 U/L (46-116); Anion Gap 10.4 mmol/L (3-11); BUN 21 mg/dL (7-18); Bilirubin, Total 0.6 mg/dL (0.2-1.0); CO2 25.6 mmol/L (21.0-32.0); CREATININE 1.1 mg/dL (0.70-1.30); Calcium 8.5 mg/dL (8.5-10.1); Chloride 105 mmol/L (98-107); Estimated GFR 69.14 (mL/min/1.73m2); Glucose 98 mg/dL (74-106); Magnesium 1.9 mg/dL (1.8-2.4); Potassium 4.5 mmol/L (3.5-5.1); Sodium 141 mmol/L (136-145); Total Protein 7.8 g/dL (6.4-8.2)
[2023-09-23 14:57] LABS: COVID-19 PCR Negative (Negative); Influenza A PCR Negative (Negative); Influenza B PCR Negative (Negative); RSV PCR Negative (Negative)
[2023-09-23 14:59] LABS: Source Nasopharynx
--- NOTE | 2023-09-23 15:30 | DI.RAD_ITS ---
Exam(s) XR CHEST 2V PA LATERAL EXAM: XR CHEST 2V PA LATERAL CLINICAL HISTORY: Cough TECHNIQUE: 2D digital imaging was performed. Two views. COMPARISON: CT CT CHEST PE CTA from 06/09/2023 FINDINGS: HEART: Normal size. Aorta: Tortuous. PULMONARY VASCULATURE: Normal. LUNGS: Bilateral lower lobe scarring. PLEURAL SPACE: No pleural effusion or pneumothorax. BONE:Resection of the bilateral 1st ribs Soft tissues: Surgical clips however the upper chest. IMPRESSION: No acute abnormality. DATA REPOSITORY: RADIATION DOSE DELIVERED:
== END 2023-09-23 16:03 | disposition home or self-care (01) ==
PROVIDERS: Emergency Provider Emergency Medicine
DX: R51.9 Headache, unspecified (principal); J44.9 Chronic obstructive pulmonary disease, unspecified; I10 Essential (primary) hypertension; R11.2 Nausea with vomiting, unspecified; Z11.52 Encounter for screening for COVID-19
CPT/HCPCS: 80053; 82805; 87637; 94640; 96361; 96374; 96375; 99285; 70450; 71046; 83735; 85025; 85610; 85730; 99284; J1790; J2919; J7620

== ENCOUNTER 2023-11-23 14:07 | Emergency (ER) | payer OTHER, SELFPAY ==
[2023-11-23] VITALS (15 sets, daily range): BP systolic 141–181; BP diastolic 79–118; PULSE 59–83; RESP 10–25; TEMP 36.4; O2SAT 93–98
--- NOTE | 2023-11-23 14:00 | RT.EKG_ITS ---
APPROVED REPORT Exam: Resting ECG Reason for Exam: Chest Pain Patient Location: E HR:67 bpm ECG Measurements Heart Rate 67 AXIS NH 192 P -29 QRSd 96 QRS -57 QT 423 T 66 QTc 448 Conclusion Sinus rhythm...normal P axis, V-rate 60- 99 Ventricular bigeminy...bigeminy string>4 w/ V complexes Left anterior fascicular block...axis(240,-40), init forces inf Probable lateral infarct, old...Q>35mS, abnormal ST-T, V5-6 I aVL sinus rhtyhm, left axis, frequent PVC with intermittent bigeminy
--- NOTE | 2023-11-23 14:22 | ED.GENADUL_ITS ---
Discharge Plan Disposition Patient Disposition: Home Condition: Improving Discharge Details Chief Complaint: Chest Pain Clinical Impression: Chest pain Primary Care Provider: Unknown,Unknown ED Provider: Michael Olvera Home Meds and New Rx's Prescriptions: No Action furosemide [Lasix] 20 mg tablet 10 mg PO DAILY PRN (Reason: Elevated BNP) Rx Instructions: Please take 1 tablet in the morning by mouth daily for the next 14 days omeprazole 10 mg capsule,delayed release(DR/EC) 40 mg PO DAILY gabapentin 300 mg capsule 300 mg PO BID PRN losartan [Cozaar] 50 mg tablet 50 mg PO DAILY albuterol sulfate 1.25 mg/3 mL solution for nebulization 1.25 mg inhalation Q6H PRN (Reason: shortness of breath or wheezing) Qty: 75 0RF Trelegy Ellipta 200-62.5-25 mcg blister with device 1 inh inhalation DAILY albuterol sulfate 90 mcg/actuation HFA aerosol inhaler 2 inh inhalation Q6H PRN Discharge Instructions Instructions: Chest pain Additional Instructions: Please follow-up with cardiology primary care physician. Please return to the emerged part for any worsening symptoms HPI General Date/Time Provider Initiated Documentation: 11/23/23 14:13 . HPI Narrative: 78-year-old male history of thoracic outlet syndrome, status post remote rib resections, presents with chest pain and shortness of breath over the last day slight lightheadedness this morning, patient endorses drinking heavily yesterday socially, denies history of withdrawal, denies history of coronary disease or thromboembolic disease. Related Data Home Medications Medication Instructions Recorded Confirmed albuterol sulfate 90 mcg/actuation 2 inh inhalation Q6H PRN 03/29/23 09/17/23 aerosol inhaler fluticasone fur. 200 mcg-umeclid 1 inh inhalation DAILY 03/29/23 06/09/23 62.5 mcg-vilant 25 mcg inhalat.powder (Trelegy Ellipta) albuterol sulfate 1.25 mg/3 mL 1.25 mg (3 mL) inhalation Q6H PRN 04/25/23 09/17/23 solution for nebulization shortness of breath or wheezing #75 mL gabapentin 300 mg capsule 300 mg PO BID PRN 04/25/23 09/17/23 losartan 50 mg tablet (Cozaar) 50 mg PO DAILY 04/25/23 09/17/23 omeprazole 10 mg capsule,delayed 40 mg PO DAILY 04/25/23 09/17/23 release furosemide 20 mg tablet (Lasix) 10 mg PO DAILY PRN Elevated BNP 05/28/23 09/17/23 Previous Rx's Medication Instructions Recorded albuterol sulfate 1.25 mg/3 mL 1.25 mg (3 mL) inhalation Q6H PRN 04/25/23 solution for nebulization shortness of breath or wheezing #75 mL Allergies Allergy/AdvReac Type Severity Reaction Status Date / Time codeine AdvReac Mild Itching Unverified 11/23/23 14:32 Milk Containing Products AdvReac Mild Diarrhea Unverified 11/23/23 14:32 (Dairy) General Stated Complaint: Chest Pain AMANDEEP: 3 Review of Systems Narrative: Review of Systems Constitutional: negative Eyes: negative ENT: negative Cardiovascular: Chest pain shortness of breath Respiratory: negative Gastrointestinal: negative : negative Musculoskeletal: negative Skin: negative Neurologic: negative Psych: negative Exam Narrative Exam Narrative: Physical Examination General: alert, awake, cooperative HEENT: normocephalic, atraumatic; PERRL, EOM intact, conjunctiva normal; no nasal discharge; moist mucous membranes, oral and pharyngeal mucosa normal, tolerating secretions Neck: supple, trachea midline; full ROM Chest: normal to inspection Respiratory: normal respiratory effort, speaking in full sentences, mild rales bilateral Cardiac: regular rate, regular rhythm, S1S2 intact, no murmurs rubs or gallops GI: abdomen soft, non-tender, non-distended; no palpable mass or hep atosplenomegaly Skin: Cool diaphoretic Neuro: AAOx3, normal speech, moving all extremities Extremities: No peripheral edema Psych: Appropriate mood and affect Course Vital Signs Vital signs: Vital Signs Temperature 36.4 C L 11/23/23 14:10 Pulse 70 11/23/23 14:10 Respiratory Rate 22 11/23/23 14:10 Blood Pressure 181/91 H 11/23/23 14:10 Pulse Oximetry 95 11/23/23 14:10 Temperature 36.4 C L 11/23/23 14:10 Temperature Source Temporal Artery Scan 11/23/23 14:10 Pulse 70 11/23/23 14:10 Respiratory Rate 22 11/23/23 14:10 Blood Pressure 181/91 H 11/23/23 14:10 Pulse Oximetry 95 11/23/23 14:10 Medical Decision Making 78-year-old male history of thoracic outlet syndrome status post remote rib resection, presents with chest pain shortness of breath and lightheadedness in the setting of recent heavy drinking last night/yesterday, denies history of withdrawal, no history of coronary disease, no to be hypertense on arrival, cool diaphoretic skin, EKG showing bigeminy, mild rales bilateral lung valladares, speaking full sentences oxygen saturation 92 to 95% on room air, high clinical suspicion for new onset CHF consider recent ACS lower suspicion for PE or aortic pathology muscles consider alcohol-induced cardiomyopathy versus electrolyte derangement low suspicion for infectious process. Will obtain EKG portable chest x-ray, labs troponin will load with aspirin, will perform bedside [id number] echocardiogram disposition pending reassessment and results Bedside echocardiogram [id number] showing normal contractility, no pericardial effusion, patient does have evidence of some pulmonary congestion as evidenced by some scattered B-lines, no definitive pleural effusions noted. Given hypertension chest discomfort shortness of breath and concern for CHF patient was given a dose of Lasix as well as sublingual nitroglycerin, patient starting to diurese currently feeling somewhat better. Will trend troponin will reassess symptomatology. If improved consider home with close cardiology follow-up 17: 50 patient resting comfortably 2 troponin negative, normal sinus rhythm on monitor without ectopy. Chest pain-free no shortness of breath. Patient diuresed appropriately here in department. Will provide follow-up with cardiology. Home care instructions or return precautions given Quality:SDOH Health Related Social Needs: No Data to Display PFSH All Active Problems (Updated 11/23/23 @ 17:51 by Michael Olvera MD) Chest pain (Acute) Fracture of fibula, distal, right, closed (Acute ~05/18/23) Persistent shortness of breath after COVID-19 (Acute) Social History Smoking/Tobacco Use Status: Never Smoking risk assessment performed?: Yes Alcohol Intake: current Alcohol Intake frequency: a few times a month Alcohol type: beer and hard liquor Drug use: Occasionally Substance use type: marijuana Housing: house Do you feel safe at home: Yes Do you feel safe in your relationship?: Yes
[2023-11-23 14:28] LABS: Abs Immature Grans 0.06 10^3/uL (0.0-0.06); Absolute Basophil Count 0.05 10^3/uL (0.0-0.2); Absolute Lymphocyte Count 1.46 10^3/uL (1.2-3.4); Absolute Monocyte Count 1.18 10^3/uL (0.1-0.8); Basophils % 0.4 %; Eosinophils % 2.1 %; HCT 45.4 % (40.0-50.0); HGB 15.5 g/dL (13.5-17.5); Immature Grans % 0.4 %; Lymphocytes % 10.8 %; MCH 32.5 pg (27.0-33.0); MCHC 34.1 % (32.0-36.0); MCV 95 fL (80-95); MPV 9.3 fL (8.0-11.0); Monocytes % 8.7 %; Neutrophils % 77.6 %; Platelet Count 245 10^3/uL (130-400); RBC 4.77 10^6/uL (4.36-5.78); RDW 13.8 % (11.8-14.1); RDW-SD 48.9 fL; WBC 13.51 10^3/uL (4.4-10.8)
[2023-11-23 14:31] LABS: Absolute Eosinophil Count 0.28 10^3/uL (0.0-0.7); Absolute Neutrophil Count 10.48 10^3/uL (1.2-6.7)
--- NOTE | 2023-11-23 14:34 | DI.RAD_ITS ---
Exam(s) XR PORTABLE CHEST AP EXAM: XR PORTABLE CHEST AP CLINICAL HISTORY: chest pain sob TECHNIQUE: 2D digital imaging was performed of the chest. One image was obtained. An AP view was ob tained. COMPARISON: CR XR CHEST 2V PA LATERAL from 09/23/2023 FINDINGS: MEDIASTINUM: Normal. HEART: Normal. PULMONARY VASCULATURE: Normal. LUNGS: There is again seen linear scarring in the left lung base and right lung base. No focal conso lidating infiltrates are present. PLEURAL SPACE: No pleural effusion or pneumothorax. BONE:Within normal limits for the patient's age. OTHER FINDINGS:There again seen surgical clips overlying the left lung apex and the right axilla. IMPRESSION: No acute pulmonary findings. DATA REPOSITORY: RADIATION DOSE DELIVERED:
[2023-11-23] MEDS: Aspirin 81 MG CHEW 324 MG CH (14:36)
[2023-11-23 14:41] LABS: INR 1.1 (0.9-1.1); PTT Activated 24.2 sec (23.6-32.8); Prothrombin Time 10.8 sec (9.1-11.1)
[2023-11-23 14:49] LABS: ALT 23 U/L (16-63); AST 20 U/L (15-37); Albumin 4.2 g/dL (3.4-5.0); Alkaline Phosphatase 50 U/L (46-116); BUN 37 mg/dL (7-18); Bilirubin, Total 0.9 mg/dL (0.2-1.0); CREATININE 1.2 mg/dL (0.70-1.30); Calcium 9.2 mg/dL (8.5-10.1); Chloride 103 mmol/L (98-107); Estimated GFR 62.29 (mL/min/1.73m2); Glucose 96 mg/dL (74-106); Magnesium 1.8 mg/dL (1.8-2.4); NT-proBNP 474 pg/mL (<300); Potassium 4.1 mmol/L (3.5-5.1); Sodium 139 mmol/L (136-145); Total Protein 8.4 g/dL (6.4-8.2); Troponin I < 50 ng/L (< or =60)
[2023-11-23 14:53] LABS: ETHANOL BLOOD < 3.0 mg/dL (<10)
[2023-11-23] MEDS: nitroGLYcerin 0.4 MG TAB SL (14:54)
[2023-11-23] MEDS: Furosemide 40 MG/4 ML VIAL IVP (14:54)
--- NOTE | 2023-11-23 15:46 | DI.VRAD_ITS ---
PROCEDURE INFORMATION: Exam: XR Chest Exam date and time: 11/23/2023 2:31 PM Age: 78 years old Clinical indication: Shortness of breath; Patient HX: Cp/sob TECHNIQUE: Imaging protocol: Radiologic exam of the chest. Views: 1 view. COMPARISON: CR XR CHEST 2V PA LATERAL 09/23/2023 3:19 PM FINDINGS: Tubes, catheters and devices: Monitoring leads overlie the chest. Lungs: Stable linear densities at the lung bases. No airspace consolidation. Surgical clips overlying the lateral right upper chest and apex of the left hemithorax are grossly stable. Pleural spaces: Unremarkable. No pleural effusion. No pneumothorax. Heart/Mediastinum: Unremarkable. No cardiomegaly. Bones/joints: Grossly stable degenerative changes of the spine. No acute fracture is identified. IMPRESSION: No acute cardiopulmonary abnormality is identified. Stable appearance of the chest. Dictated and Authenticated by: Etienne Cummings MD. Ordering:JUAN Rodriguez MD
[2023-11-23 17:40] LABS: Troponin I < 50 ng/L (< or =60)
--- NOTE | 2023-11-23 19:13 | NUR.NOTE ---
Referral faxed to [facility] Cardiology to f/u within a week if at all possible for chest pain. RCT Authorization form filled out as well as patient had no one to transport him home after his emergency dept visit on 11/23/23.Nursing Note:
== END 2023-11-23 18:08 | disposition home or self-care (01) ==
PROVIDERS: Emergency Provider Emergency Medicine; PCP Physician Assistant
DX: R07.9 Chest pain, unspecified (principal); R06.02 Shortness of breath; R42 Dizziness and giddiness; I10 Essential (primary) hypertension; F10.90 Alcohol use, unspecified, uncomplicated; Z98.890 Other specified postprocedural states
CPT/HCPCS: 36415; 80053; 93005; 96374; 99284; 71045; 80320; 83735; 83880; 84484; 85025; 85610; 85730; 93010; 99283; J1940

== ENCOUNTER 2024-06-17 12:03 | Emergency (ER) | payer OTHER, SELFPAY ==
--- NOTE | 2024-06-17 12:00 | RT.EKG_ITS ---
APPROVED REPORT Exam: Resting ECG Reason for Exam: sob Patient Location: E HR:47 bpm ECG Measurements Heart Rate 47 AXIS ME 166 P 18 QRSd 88 QRS 0 QT 437 T 58 QTc 389 Conclusion Sinus bradycardia...rate< 60
[2024-06-17 12:06] VITALS: BP 164/80; PULSE 49; RESP 20; TEMP 36.8; O2SAT 95
[2024-06-17 12:27] VITALS: BP 165/93; PULSE 67; PULSE 68; RESP 18; RESP 20; O2SAT 97
[2024-06-17 12:31] VITALS: BP 207/74; PULSE 46; PULSE 49; RESP 16; O2SAT 95
[2024-06-17 12:36] LABS: Abs Immature Grans 0.02 10^3/uL (0.0-0.06); Absolute Basophil Count 0.05 10^3/uL (0.0-0.2); Absolute Eosinophil Count 0.33 10^3/uL (0.0-0.7); Absolute Lymphocyte Count 1.64 10^3/uL (1.2-3.4); Absolute Monocyte Count 0.66 10^3/uL (0.1-0.8); Absolute Neutrophil Count 4.52 10^3/uL (1.2-6.7); Basophils % 0.7 %; Eosinophils % 4.6 %; HCT 44.7 % (40.0-50.0); HGB 14.7 g/dL (13.5-17.5); Immature Grans % 0.3 %; Lymphocytes % 22.7 %; MCH 32.4 pg (27.0-33.0); MCHC 32.9 % (32.0-36.0); MCV 99 fL (80-95); MPV 9.2 fL (8.0-11.0); Monocytes % 9.1 %; Neutrophils % 62.6 %; Platelet Count 290 10^3/uL (130-400); RBC 4.54 10^6/uL (4.36-5.78); RDW 13.8 % (11.8-14.1); RDW-SD 50.8 fL; WBC 7.22 10^3/uL (4.4-10.8)
--- NOTE | 2024-06-17 12:45 | DI.CT_ITS ---
Exam(s) CT CHEST PE CTA EXAM: CT CHEST PE CTA CLINICAL HISTORY: SOB, dizziness. TECHNIQUE: Imaging Protocol: Axial CT angiography was performed with multi-slice acquisition and mu lti-planar and/or 3D reconstructions. Lung Computer Aided Detection (CAD) was utilized. CONTRAST MATERIAL: Intravenous: Omnipaque 350 contrast volume:100 mL COMPARISON: CT CT CHEST PE CTA from 06/09/2023 FINDINGS: Tracheobronchial tree: Patent where visualized. There is mild bronchial wall thickening present. The re is mucous plugging seen in the right lower lobe. Pulmonary parenchyma: Mild centrilobular emphysematous changes are present. Atelectatic changes are seen in the dependent portions of the lungs. No focal consolidating infiltrates are present. No pul monary nodules are seen. Pulmonary Arteries: No evidence of filling defect to suggest pulmonary emboli. Mediastinum and Kathi: No dominant adenopathy or fluid collection. The esophagus is unremarkable. Visualized thyroid gland: Unremarkable. Pleura: No effusion or pneumothorax. Heart: Mild cardiomegaly. Mild three-vessel coronary artery calcification. No pericardial effusion. Aorta: Thoracic aorta non-dilated. Atherosclerotic calcification is present. Due to the timing of th e bolus, aortic opacification is suboptimal. Upper abdomen: Unremarkable. Soft tissues: Unremarkable. Bones: Within normal limits for the patient's age. IMPRESSION: 1. No evidence of a pulmonary embolism or thoracic aortic aneurysm. 2. Bronchial wall thickening and mucus plugging in the right lower lobe. This may reflect bronchitis . Please correlate clinically. No focal consolidating infiltrates are seen. 3. Mild centrilobular emphysema. RADIATION DOSE DELIVERED: 113.62mGy.cm Total DLP DATA REPOSITORY: All CT scans at this facility are submitted to the National Radiology Data Registry (NRDR) Dose Index Registry (DIR) with the [employer] (ACR). RADIATION OPTIMIZATION: All CT scans at this facility use at least one of these dose optimization te chniques: automated exposure control; mA and/or kV adjustment per patient size (includes targeted exa ms where dose is matched to clinical indication); or iterative reconstruction.
[2024-06-17 12:46] VITALS: BP 203/128; PULSE 56; PULSE 59; RESP 15; O2SAT 94
[2024-06-17 12:51] LABS: ALT 26 U/L (16-63); AST 27 U/L (15-37); Albumin 4.1 g/dL (3.4-5.0); Alkaline Phosphatase 56 U/L (46-116); Anion Gap 8.1 mmol/L (3-11); BUN 24 mg/dL (7-18); Bilirubin, Total 0.67 mg/dL (0.2-1.0); CO2 28.9 mmol/L (21.0-32.0); CREATININE 1.3 mg/dL (0.70-1.30); Calcium 9.2 mg/dL (8.5-10.1); Chloride 108 mmol/L (98-107); Estimated GFR 56.23 (mL/min/1.73m2); Glucose 109 mg/dL (74-106); Sodium 145 mmol/L (136-145); Total Protein 8.6 g/dL (6.4-8.2); Troponin I 17 ng/L (<or=76)
--- NOTE | 2024-06-17 12:51 | ED.GENADUL_ITS ---
Discharge Plan Disposition Patient Disposition: Home Condition: Good Discharge Details Clinical Impression: Persistent shortness of breath after COVID-19, Mucus plug in respiratory tract, Emphysema lung, Elevated blood pressure reading Primary Care Provider: Ya Boykin ED Provider: Cecilia Dewey Home Meds and New Rx's Prescriptions: Continued furosemide [Lasix] 20 mg tablet 10 mg PO DAILY PRN (Reason: Elevated BNP) Rx Instructions: Please take 1 tablet in the morning by mouth daily for the next 14 days omeprazole 10 mg capsule,delayed release(DR/EC) 40 mg PO DAILY gabapentin 300 mg capsule 300 mg PO BID PRN losartan [Cozaar] 50 mg tablet 50 mg PO DAILY albuterol sulfate 1.25 mg/3 mL solution for nebulization 1.25 mg inhalation Q6H PRN (Reason: shortness of breath or wheezing) Qty: 75 0RF Trelegy Ellipta 200-62.5-25 mcg blister with device 1 inh inhalation DAILY albuterol sulfate 90 mcg/actuation HFA aerosol inhaler 2 inh inhalation Q6H PRN Discharge Instructions Instructions: COPD Exacerbation, Adult ED Additional Instructions: As we discussed, the imaging showed some mucous plugging which seems to be improved after use of the Acapella device. Please continue to use this daily as recommended by respiratory therapy along with the incentive spirometer. Please continue to encourage hydration. Please continue with your daily medications. Please follow-up with primary care in the next 1 to 2 weeks for reevaluation and to check your blood pressure. If you develop chest pain, increased shortness of breath, increased work of breathing or other new/worsening symptoms please seek care urgently once again. Please also discuss seeing a diesel mechanic construction when you meet with your primary care program director. Referrals: Ya Boykin [Primary Care Provider] - [facility] General Date/Time Provider Initiated Documentation: 06/17/24 12:06 . Limitations to Documentation: no limitations . Information obtained by: patient and RN notes reviewed . History of Present Illness 79 year old M presents to the emergency department with the chief complaint of Shortness of breath, described as moderate and similar to prior episodes, and is localized to the chest. Patient started experiencing this year(s) and it has been constant. Immobilization improves symptom(s), Movement worsens symptoms . Patient notes cough (No acute change in this) and shortness of breath; denies chest pain, fever/chills, loss of appetite, nausea/vomiting, rash, syncope and weakness. Patient did receive the follo wing treatments prior to arrival, other (Inhaler and nebulizer) Related Data Home Medications ?Medication ?Instructions ?Recorded ?Confirmed albuterol sulfate 90 mcg/actuation 2 inh inhalation Q6H PRN 03/29/23 06/17/24 aerosol inhaler fluticasone fur. 200 mcg-umeclid 1 inh inhalation DAILY 03/29/23 06/17/24 62.5 mcg-vilant 25 mcg inhalat.powder (Trelegy Ellipta) albuterol sulfate 1.25 mg/3 mL 1.25 mg (3 mL) inhalation Q6H PRN 04/25/23 06/17/24 solution for nebulization shortness of breath or wheezing #75 mL gabapentin 300 mg capsule 300 mg PO BID PRN 04/25/23 06/17/24 losartan 50 mg tablet (Cozaar) 50 mg PO DAILY 04/25/23 06/17/24 omeprazole 10 mg capsule,delayed 40 mg PO DAILY 04/25/23 06/17/24 release furosemide 20 mg tablet (Lasix) 10 mg PO DAILY PRN Elevated BNP 05/28/23 06/17/24 Previous Rx's ?Medication ?Instructions ?Recorded albuterol sulfate 1.25 mg/3 mL 1.25 mg (3 mL) inhalation Q6H PRN 04/25/23 solution for nebulization shortness of breath or wheezing #75 mL Allergies Allergy/AdvReac Type Severity Reaction Status Date / Time codeine AdvReac Mild Itching Unverified 06/17/24 12:11 Milk Containing Products AdvReac Mild Diarrhea Unverified 06/17/24 12:11 (Dairy) General Stated Complaint: SOB AMANDEEP: 3 Review of Systems Constitutional Constitutional: Reports as per HPI, Denies chills, Denies fever(s), Denies headache(s), Denies lethargy and Denies poor appetite Eyes Eyes: Denies change in vision ENT Ears, Nose, Mouth, and Throat: Denies dizziness and Denies headache(s) Cardiovascular Cardiovascular: Reports as per HPI Respiratory Respiratory: Reports as per HPI, Denies pain on inspiration and Denies pain with cough Gastrointestinal Gastrointestinal: Reports as per HPI, Denies abdominal pain, Denies diarrhea, Denies nausea and Denies vomiting Musculoskeletal Musculoskeletal: Reports as per HPI and Denies back pain Integumentary/Breasts Skin/Breast: Reports as per HPI and Denies rash Neurologic Neurologic: Reports as per HPI, Denies dizziness and Denies headache(s) Exam Const General: cooperative, healthy appearing, comfortable, no acute distress and well developed Nutritional Appearance: average body habitus and well nourished Orientation: alert, awake and oriented x3 Chest Chest: normal inspection of the chest, normal palpation of entire chest wall and no crepitus Resp Effort & Inspection: normal respiratory effort, able to speak in complete sentences and no respiratory distress Auscultation: crackles on the left at the base and wheezes Cardio Rate: regular rate Rhythm: regular rhythm Heart Sounds: S1 normal and S2 normal Skin General skin exam: no rashes or lesions noted Trauma: no lacerations or abrasions Neuro General: patient alert, patient awake and patient oriented x3 Cognition: normal cognition Speech: speech normal Gait: normal gait Extrem General: normal to inspection, capillary refill normal, no pedal edema, no calf tenderness and normal gait Course Vital Signs Vital signs: Vital Signs Temperature 36.8 C 06/17/24 12:06 Pulse 49 L 06/17/24 12:06 Respiratory Rate 20 06/17/24 12:06 Blood Pressure 164/80 H 06/17/24 12:06 Pulse Oximetry 95 06/17/24 12:06 Temperature 36.8 C 06/17/24 12:06 Pulse 67 06/17/24 12:27 Pulse 68 06/17/24 12:27 Respiratory Rate 20 06/17/24 12:27 Respiratory Effort Short of Breath 06/17/24 12:27 Respiratory Depth Normal 06/17/24 12:27 Respiratory Pattern Normal 06/17/24 12:27 Blood Pressure 165/93 H 06/17/24 12:27 Blood Pressure Mean 121 06/17/24 12:27 Pulse Oximetry 97 06/17/24 12:27 Oxygen Delivery Method Room Air 06/17/24 12:06 Oxygen Flow Rate 0 06/17/24 12:06 Pain Level 5 06/17/24 12:06 Lab/Test Results Lab/Test Results: Laboratory Tests Range/Units 06/17/24 12:23 WBC (4.4-10.8) 10^3/uL 7.22 RBC (4.36-5.78) 10^6/uL 4.54 Hgb (13.5-17.5) g/dL 14.7 Hct (40.0-50.0) % 44.7 MCV (80-95) fL 99 H MCH (27.0-33.0) pg 32.4 MCHC (32.0-36.0) % 32.9 RDW (11.8-14.1) % 13.8 Plt Count (130-400) 10^3/uL 290 MPV (8.0-11.0) fL 9.2 Immature Gran % % 0.3 Neutrophils % % 62.6 Lymphocytes % % 22.7 Monocytes % % 9.1 Eosinophils % % 4.6 Basophils % % 0.7 Nucleated RBC % (0.0-0.3) % 0.0 Absolute Neutrophils (1.2-6.7) 10^3/uL 4.52 Absolute Lymphocytes (1.2-3.4) 10^3/uL 1.64 Absolute Monocytes (0.1-0.8) 10^3/uL 0.66 Absolute Eosinophils (0.0-0.7) 10^3/uL 0.33 Absolute Basophils (0.0-0.2) 10^3/uL 0.05 Medical Decision Making Patient is a pleasant 79-year-old male presented with chief complaint of shortness of breath. He reports that he has had issues with his breathing for the past 5 years has become notably worse over the past few months, unclear if this has been progressively worsening over the past few months which is not improving. He describes significant exertional dyspnea. Reports that he has history of COPD as well as multiple exposures from previous living situation as well as occupational exposures. He is never smoked. [facility] is [facility]. Symptoms became much more noticeable after developing COVID about 5 years ago and continue to be an issue. Patient is on Trelegy, albuterol inhaler as w ell as albuterol nebulizer and he reports that these offer only minimal improvement if at all when using this. On exam, patient appears nontoxic. He is resting comfortably no acute distress. He was initially noted to be bradycardic but on review of his chart as well as discussion with the patient, this appears to be his baseline and unrelated to his current symptoms of feeling short of breath. He was noted to be significantly hypertensive but on manual reading, blood pressure seems significantly lower with a systolic in the 160s even when reading 200 on the monitor. Patient is reading a book on his arm flexed likely causing the inappropriate reading from the blood pressure machine. He does not appear to be in any respiratory disparate distress. No lower extremity edema. 2+ distal p ulses. He is some crackles in the left lower lobe which she reports has been reported to him in the past by his primary care. Normal cardiac exam. Again no respiratory distress. ECG was obtained and reviewed by Dr. Blair. Patient is in sinus bradycardia with no acute ischemic changes appreciated. Labs reviewed. No leukocytosis. Stable H&H. CMP without significant abnormality. Troponin within normal limits. CTA reviewed by radiologist, no evidence of PE or thoracic aortic aneurysm. Bronchial wall thickening and mucous plugging in the right lower lobe reflecting possible bronchitis advise clinical correlation. No focal consolidation, mild centrilobular emphysema. Spoke with RT, will try accappella devices. Patient had good amount of sputum brought up after the Acapella and is feeling improved. He will continue the Acapella as well as the incentive spirometer as recommended by respiratory therapy. Patient was then ambulated with staff and he did not have any tachycardia or hypoxemia with ambulation. He did feel that this was improved compared to his typical shortness of breath he experiences with exertion. I encouraged that he discuss this further with his primary care and discussed need for possible referral for pulmonology. Strict return precautions were discussed. All of his questions and concerns were addressed and he is in agreement this plan. This documentation was generated using [employer] dictation system, please disregard any oddities of phrase or misspellings. Quality:SDOH Health Related Social Needs: No Data to Display PFSH All Active Problems (Updated 06/17/24 @ 15:17 by MARKEL Castellanos) Elevated blood pressure reading (Acute) Emphysema lung (Acute) Mucus plug in respiratory tract (Acute) Fracture of fibula, distal, right, closed (Acute ~05/18/23) Persistent shortness of breath after COVID-19 (Acute) Social History Smoking/Tobacco Use Status: Never Smoking risk assessment performed?: Yes Alcohol Intake: current Alcohol Intake frequency: a few times a month Alcohol type: beer and hard liquor Drug use: Occasionally Substance use type: marijuana Housing: house Do you feel safe at home: Yes Do you feel safe in your relationship?: Yes
[2024-06-17] MEDS: Normal Saline - Diluent 50 ML VIAL IJ (13:12)
[2024-06-17] MEDS: Omnipaque 350 MG/ML 100 ML BTL IJ (13:12)
[2024-06-17 14:06] LABS: Troponin I 16 ng/L (<or=76)
[2024-06-17 14:09] VITALS: O2SAT 95
[2024-06-17 15:13] VITALS: BP 198/100
[2024-06-17] MEDS: Losartan 50 MG TAB PO (15:21)
--- NOTE | 2024-06-18 08:41 | NUR.NOTE ---
Access chart to reconcile EKG orders with EKG's in [facility]. Duplicate order cancelled. Nursing Note:
== END 2024-06-17 19:05 | disposition home or self-care (01) ==
PROVIDERS: Emergency Provider Physician Assistant; PCP Physician Assistant
DX: R06.02 Shortness of breath (principal); U09.9 Post COVID-19 condition, unspecified; J98.09 Other diseases of bronchus, not elsewhere classified; J43.2 Centrilobular emphysema; J44.9 Chronic obstructive pulmonary disease, unspecified
CPT/HCPCS: 71275; 80053; 93005; 99285; 83735; 84484; 85025; 93010; 94667; 99284; J3490

== ENCOUNTER 2024-07-11 11:19 | Emergency (ER) | payer OTHER, SELFPAY ==
[2024-07-11 11:22] VITALS: BP 189/90; PULSE 67; RESP 18; TEMP 36.6; O2SAT 92
--- NOTE | 2024-07-11 11:30 | DI.CT_ITS ---
Exam(s) CT NECK CHEST WO EXAM: CT NECK CHEST WO CLINICAL HISTORY: Difficulty swallowing. TECHNIQUE: Imaging protocol: Axial computed tomography images were obtained and coronal and sagittal reformatted images were created and reviewed. Lung Computer Aided Detection (CAD) was utilized. COMPARISON: CT CT CHEST PE CTA from 06/17/2024 FINDINGS: Examination is limited due to lack of IV contrast material. Tracheobronchial tree: Patent where visualized. No bronchiectasis is present. Pulmonary parenchyma: Centrilobular emphysematous changes are present. Unchanged parenchymal scarrin g is present in the lungs. No focal consolidating infiltrates are seen. Mediastinum and Kathi: No dominant adenopathy or fluid collection. The esophagus is unremarkable. Thyroid gland: Unremarkable. Pleura: No effusion or pneumothorax. Heart: Cardiomegaly. Three vessel coronary artery calcification is present. No pericardial effusion . Aorta: The ascending thoracic aorta measures 4.1 x 4.1 cm. Atherosclerotic calcification is present Upper abdomen: Unremarkable. Lymph nodes: Within normal limits. Soft tissues: Unremarkable. Bones:Within normal limits for the patient's age. Visualized intracranial structures: Within normal limits. Orbits and orbital soft tissues: Within normal limits. Visualized paranasal sinuses: Within normal limits. Nasopharynx: Within normal limits. Oropharynx: Within normal limits. Hypopharynx: Within normal limits. Larynx: Within normal limits. Retropharyngeal space: Within normal limits. Parotids/submandibular: Within normal limits. Thyroid gland: Within normal limits. Lymphadenopathy: There is scattered lymph nodes seen along the level one to level three all measurin g less than 8 mm in short axis diameter which are physiologic in nature. Trachea: Within normal limits. Bones: Within normal limits for the patient's age. Carotids/Jugular: Within normal limits. Soft tissues: Within normal limits. IMPRESSION: 1. No acute pulmonary process. 2. The trachea is unremarkable. 3. No acute abnormality in the CT scan of the neck. RADIATION DOSE DELIVERED: 568.71mGy.cm Total DLP DATA REPOSITORY: All CT scans at this facility are submitted to the National Radiology Data Registry (NRDR) Dose Index Registry (DIR) with the [employer] (A[employer]). RADIATION OPTIMIZATION: All CT scans at this facility use at least one of these dose optimization te chniques: automated exposure control; mA and/or kV adjustment per patient size (includes targeted exa ms where dose is matched to clinical indication); or iterative reconstruction.
--- NOTE | 2024-07-11 12:44 | W.ED.GENAD ---
Discharge Plan Disposition Patient Disposition: Home Discharge Details Clinical Impression: Esophagitis, Elevated blood pressure reading Primary Care Provider: Ya Boykin ED Provider: Prasad Swenson Home Meds and New Rx's Prescriptions: New lidocaine HCl [Lidocaine Viscous] 2 % solution 15 ml mucous membrane BID PRN (Reason: pain) Qty: 300 0RF Continued furosemide [Lasix] 20 mg tablet 10 mg PO DAILY PRN (Reason: Elevated BNP) Rx Instructions: Please take 1 tablet in the morning by mouth daily for the next 14 days omeprazole 10 mg capsule,delayed release(DR/EC) 40 mg PO DAILY gabapentin 300 mg capsule 300 mg PO BID PRN losartan [Cozaar] 50 mg tablet 50 mg PO DAILY albuterol sulfate 1.25 mg/3 mL solution for nebulization 1.25 mg inhalation Q6H PRN (Reason: shortness of breath or wheezing) Qty: 75 0RF azithromycin 250 mg tablet 250 mg PO DAILY Patient Comments: TAKE 2 TABLETS BY MOUTH ON DAY 1, AND THEN TAKE 1 TABLET BY MOUTH ONCE A DAY ON DAY 2 THROUGH DAY 5 Trelegy Ellipta 200-62.5-25 mcg blister with device 1 inh inhalation DAILY albuterol sulfate 90 mcg/actuation HFA aerosol inhaler 2 inh inhalation Q6H PRN Discharge Instructions Instructions: Esophagitis Additional Instructions: At this time your CT imaging was nonemergent for any complications of your Patterson's esophagus and I suspect esophagitis or irritation secondary to food intake a couple days ago. Please stay well-hydrated and you may increase your oral intake of food. Please take lidocaine as directed and follow-up with your primary care provider for reassessment Return immediately to the emergency department for any new or significant worsening of your symptoms Referrals: Ya Boykin [Primary Care Provider] - 1 week HPI General Mode of arrival: ambulatory. Date/Time Provider Initiated Documentation: 07/11/24 11:31. Limitations to Documentation: no limitations. Information obtained by: patient and RN notes reviewed. History of Present Illness 79 year old M presents to the emergency department with the chief complaint of Sore throat, difficulty swallowing, Patient started experiencing this day(s) (3) and it has been constant. No relieving factors improve symptom(s), Eating worsens symptoms . Patient notes no other symptoms.. Patient did receive the following treatments prior to arrival, none Related Data Home Medications ?Medication ?Instructions ?Recorded ?Confirmed albuterol sulfate 90 mcg/actuation 2 inh inhalation Q6H PRN 03/29/23 07/11/24 aerosol inhaler fluticasone fur. 200 mcg-umeclid 1 inh inhalation DAILY 03/29/23 07/11/24 62.5 mcg-vilant 25 mcg inhalat.powder (Trelegy Ellipta) albuterol sulfate 1.25 mg/3 mL 1.25 mg (3 mL) inhalation Q6H PRN 04/25/23 07/11/24 solution for nebulization shortness of breath or wheezing #75 mL gabapentin 300 mg capsule 300 mg PO BID PRN 04/25/23 07/11/24 losartan 50 mg tablet (Cozaar) 50 mg PO DAILY 04/25/23 07/11/24 omeprazole 10 mg capsule,delayed 40 mg PO DAILY 04/25/23 07/11/24 release furosemide 20 mg tablet (Lasix) 10 mg PO DAILY PRN Elevated BNP 05/28/23 07/11/24 azithromycin 250 mg tablet 250 mg PO DAILY 07/11/24 07/11/24 lidocaine HCl 2 % mucosal solution 15 ml mucous membrane BID PRN pain 07/11/24 (Lidocaine Viscous) #300 mL Previous Rx's ?Medication ?Instructions ?Recorded albuterol sulfate 1.25 mg/3 mL 1.25 mg (3 mL) inhalation Q6H PRN 04/25/23 solution for nebulization shortness of breath or wheezing #75 mL lidocaine HCl 2 % mucosal solution 15 ml mucous membrane BID PRN pain 07/11/24 (Lidocaine Viscous) #300 mL Allergies Allergy/AdvReac Type Severity Reaction Status Date / Time codeine AdvReac Mild Itching Unverified 07/11/24 11:24 Milk Containing Products AdvReac Mild Diarrhea Unverified 07/11/24 11:24 (Dairy) General Stated Complaint: ForeignBody AMANDEEP: 3 Review of Systems Constitutional Constitutional: Denies chills and Denies fever(s) ENT Ears, Nose, Mouth, and Throat: Reports as per HPI, Reports dysphagia, Denies neck pain, Reports odynophagia, Reports sore throat and Denies throat swelling Cardiovascular Cardiovascular: Denies chest pain, Denies syncope, Denies rapid heart rate, Denies dyspnea and Denies dyspnea on exertion Respiratory Respiratory: Denies chest congestion, Denies cough, Denies hemoptysis, Denies dyspnea and Denies dyspnea on exertion Gastrointestinal Gastrointestinal: Denies abdominal pain, Denies melena, Denies hematochezia, Denies coffee ground emesis, Reports dysphagia, Reports heartburn, Reports odynophagia, Denies vomiting and Denies hematemesis Musculoskeletal Musculoskeletal: Denies neck pain Neurologic Neurologic: Denies syncope Allergic/Immunologic Allergic/Immunologic: Denies throat swelling Exam Const General: cooperative, healthy appearing, comfortable, no acute distress and not ill appearing Orientation: alert, awake and oriented x3 HENMT Head: normal to inspection and normocephalic Ears: hearing grossly normal bilaterally and external ears normal General nose exam: nares normal Face and sinus: normal facial exam Mouth: oral mucosae normal, lip normal, tongue normal, no audible dysphonia, no drooling and no trismus Throat: uvula midline and no peritonsillar masses Neck Neck: normal visual inspection, full ROM, no lymphadenopathy and no meningeal signs Resp Effort & Inspection: normal respiratory effort, able to speak in complete sentences and no stridor Auscultation: clear to auscultation bilaterally Cardio Rate: regular rate Rhythm: regular rhythm Heart Sounds: S1 normal and S2 normal Bruits: no abdominal aortic bruits GI Palpation: soft, not firm, no guarding, no hernias, no masses, no pulsatile masses, not rigid and nontender Auscultation: normal bowel sounds Course Vital Signs Vital signs: Vital Signs Temperature 36.6 C 07/11/24 11:22 Pulse 67 07/11/24 11:22 Respiratory Rate 18 07/11/24 11:22 Blood Pressure 189/90 H 07/11/24 11:22 Pulse Oximetry 07/11/24 11:22 Temperature 36.6 C 07/11/24 11:22 Pulse 67 07/11/24 11:22 Respiratory Rate 18 07/11/24 11:22 Blood Pressure 189/90 H 07/11/24 11:22 Pulse Oximetry 07/11/24 11:22 Medical Decision Making Patient presenting to the emergency department for chief complaint of sore throat and difficulty swallowing. 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 He denies any vomiting bloody emesis change in bowel movements or consistency/color. States he is able to sip and drink water but has significant discomfort with any swallowing. Patient denies any shortness of breath, chest pain, difficulty breathing lightheadedness or other symptoms. physical exam is unremarkable with no contributing findings noted. Given patient's history we will do a oral contrast scan and pending results will give oral lidocaine to see if this helps with the discomfort. CT imaging shows no acute or emergent finding. Reassessed patient and patient stated significant improvement with the lidocaine. Still no signs of airway distress or disorder so I do feel that patient is able to be safely discharged he states that he is scheduled to have a upper and lower endoscopy done at the end of the month which I think is reasonable but that he should follow-up with primary care provider. After discussion of diagnosis and plan of care patient has no further needs, questions, or concerns and states clear understanding to return to the emergency department for any worsening symptoms. This documentation was generated using HALKAR dictation system, please disregard any oddities of phrase or misspellings. Imaging Data Radiologic Study: Imaging: CT Scan Radiologist's impression: Exam(s) PROCEDURE INFORMATION: Exam: CT Neck Without Contrast Exam date and time: 07/11/2024 12:42 PM Age: 79 years old Clinical indication: Other: Difficulty swallowing; Other: Know barrets esophagus TECHNIQUE: Imaging protocol: Computed tomography of the neck without contrast. 3D rendering (Not supervised by radiologist): MIP and/or 3D reconstructed images were created by the technologist. COMPARISON: CT CHEST PE CTA 06/17/2024 1:10 PM FINDINGS: Salivary glands: Normal. Glands are normal in size. Pharynx: Unremarkable. No significant tonsillar enlargement. Larynx: Unremarkable. Epiglottis is normal. Thyroid: Normal. No significant nodule.. Trachea: Visualized trachea is unremarkable. Lungs: Unremarkable as visualized. Lymph nodes: Unremarkable. No lymphadenopathy. Vasculature: Relatively heavy calcification of the cervical carotid artery bilaterally. Degree of stenosis is not assessed. Bones/joints: Unremarkable. No acute fracture. Soft tissues: Unremarkable. No significant soft tissue swelling. IMPRESSION: No acute findings. Atherosclerosis of the cervical carotid arteries noted. PROCEDURE INFORMATION: Exam: CT Chest Without Contrast; Diagnostic Exam date and time: 07/11/2024 12:42 PM Age: 79 years old Clinical indication: Other: Difficulty swallowing; Other: Know barrets esophagus TECHNIQUE: Imaging protocol: Diagnostic computed tomography of the chest without contrast. 3D rendering (Not supervised by radiologist): MIP and/or 3D reconstructed images were created by the technologist. COMPARISON: CT CHEST PE CTA 06/17/2024 1:10 PM FINDINGS: Thyroid: Normal. No significant nodule or enlargement. Trachea: Normal. Lungs: The lungs show some minimal linear scarring or atelectasis in the bases but otherwise are clear. Pleural spaces: Unremarkable. No pneumothorax. No pleural effusion or thickening. Heart: No cardiomegaly. No pericardial effusion. Coronary arteries: Moderate coronary artery calcification. Esophagus: History of Patterson's esophagus noted. The proximal thoracic esophagus is minimally dilated. There is mild wall thickening distally at the GE junction. No mass. Mediastinal space: Normal. No mass or adenopathy. Lymph nodes: No enlarged mediastinal or axillary lymph nodes. Vasculature: Mild aortic atherosclerosis. Bones/joints: Unremarkable. No acute fracture. Soft tissues: Unremarkable. Other findings: Visualized upper abdomen is unremarkable. IMPRESSION: No acute findings. Dictated and Authenticated by: Dangelo Freeman MD. Quality:SDOH Health Related Social Needs: No Data to Display PFSH All Active Problems (Updated 07/11/24 @ 14:22 by Prasad Swenson NP) Esophagitis (Acute) Elevated blood pressure reading (Acute) Emphysema lung (Acute) Mucus plug in respiratory tract (Acute) Fracture of fibula, distal, right, closed (Acute ~05/18/23) Persistent shortness of breath after COVID-19 (Acute) Social History Smoking/Tobacco Use Status: Never Smoking risk assessment performed?: Yes Alcohol Intake: current Alcohol Intake frequency: a few times a month Alcohol type: beer and hard liquor Drug use: Occasionally Substance use type: marijuana Housing: house Do you feel safe at home: Yes Do you feel safe in your relationship?: Yes PAWSS Have you Been Recently Intoxicated or Drunk Within the Last 30 days?: No Have you Ever Experienced Previous Episodes of Alcohol Withdrawal?: No Have you ever Experienced Withdrawal Seizures?: No Have you ever Experienced Delirium Tremens(DT)s?: No Have you ever undergone Alcohol Rehabilitation Treatment (i.e, inpt ot outpatient treatment programs)?: No Have you ever Experienced Blackouts?: No Have you ever Combined Alcohol with other Downers within the last 90 days?: No Have you ever Combined Alcohol with any other Substance of Abuse during the last 90 days?: No Positive Blood Alcohol level on Presentation? [PCS.BAL]: No Evidence of Increased Autonomic Activity (i.e. HR>120, tremor, sweating, agitation, nausea)?: No Result: 0
[2024-07-11] MEDS: Barium Sulfate 2% W/V-Berry Smoothie 450 ML BTL PO (12:50)
[2024-07-11] MEDS: Lidocaine 2% Viscous 15 ML CUP (13:21)
--- NOTE | 2024-07-11 13:23 | DI.VRAD_ITS ---
PROCEDURE INFORMATION: Exam: CT Neck Without Contrast Exam date and time: 07/11/2024 12:42 PM Age: 79 years old Clinical indication: Other: Difficulty swallowing; Other: Know barrets esophagus TECHNIQUE: Imaging protocol: Computed tomography of the neck without contrast. 3D rendering (Not supervised by radiologist): MIP and/or 3D reconstructed images were created by the technologist. COMPARISON: CT CHEST PE CTA 06/17/2024 1:10 PM FINDINGS: Salivary glands: Normal. Glands are normal in size. Pharynx: Unremarkable. No significant tonsillar enlargement. Larynx: Unremarkable. Epiglottis is normal. Thyroid: Normal. No significant nodule.. Trachea: Visualized trachea is unremarkable. Lungs: Unremarkable as visualized. Lymph nodes: Unremarkable. No lymphadenopathy. Vasculature: Relatively heavy calcification of the cervical carotid artery bilaterally. Degree of stenosis is not assessed. Bones/joints: Unremarkable. No acute fracture. Soft tissues: Unremarkable. No significant soft tissue swelling. IMPRESSION: No acute findings. Atherosclerosis of the cervical carotid arteries noted. PROCEDURE INFORMATION: Exam: CT Chest Without Contrast; Diagnostic Exam date and time: 07/11/2024 12:42 PM Age: 79 years old Clinical indication: Other: Difficulty swallowing; Other: Know barrets esophagus TECHNIQUE: Imaging protocol: Diagnostic computed tomography of the chest without contrast. 3D rendering (Not supervised by radiologist): MIP and/or 3D reconstructed images were created by the technologist. COMPARISON: CT CHEST PE CTA 06/17/2024 1:10 PM FINDINGS: Thyroid: Normal. No significant nodule or enlargement. Trachea: Normal. Lungs: The lungs show some minimal linear scarring or atelectasis in the bases but otherwise are clear. Pleural spaces: Unremarkable. No pneumothorax. No pleural effusion or thickening. Heart: No cardiomegaly. No pericardial effusion. Coronary arteries: Moderate coronary artery calcification. Esophagus: History of Patterson's esophagus noted. The proximal thoracic esophagus is minimally dilated. There is mild wall thickening distally at the GE junction. No mass. Mediastinal space: Normal. No mass or adenopathy. Lymph nodes: No enlarged mediastinal or axillary lymph nodes. Vasculature: Mild aortic atherosclerosis. Bones/joints: Unremarkable. No acute fracture. Soft tissues: Unremarkable. Other findings: Visualized upper abdomen is unremarkable. IMPRESSION: No acute findings. Dictated and Authenticated by: Dangelo Freeman MD. Orderin Leela Parham MD
[2024-07-11 13:25] VITALS: BP 199/77; PULSE 66; RESP 18; O2SAT 94
[2024-07-11 14:53] VITALS: BP 197/94; PULSE 65; RESP 18; O2SAT 93
== END 2024-07-11 14:55 | disposition home or self-care (01) ==
PROVIDERS: Emergency Provider Nurse Practitioner Family; PCP Physician Assistant
DX: K20.90 Esophagitis, unspecified without bleeding (principal); R03.0 Elevated blood-pressure reading, without diagnosis of hypertension; K22.70 Barrett's esophagus without dysplasia
CPT/HCPCS: 71271; 99284; 70490

== ENCOUNTER 2024-07-24 13:45 | Emergency (ER) | payer OTHER, SELFPAY ==
[2024-07-24 13:57] VITALS: BP 154/84; PULSE 72; RESP 14; TEMP 36.9; O2SAT 92
[2024-07-24 14:05] VITALS: BP 154/84; PULSE 72; RESP 14; TEMP 36.9; O2SAT 92
--- NOTE | 2024-07-24 14:58 | ED.GENADUL_ITS ---
Discharge Plan Disposition Patient Disposition: Home Condition: Stable Discharge Details Clinical Impression: Otorrhea Primary Care Provider: Ya Boykin ED Provider: Alfredo Elizabeth Home Meds and New Rx's Prescriptions: Continued furosemide [Lasix] 20 mg tablet 10 mg PO DAILY PRN (Reason: Elevated BNP) Rx Instructions: Please take 1 tablet in the morning by mouth daily for the next 14 days omeprazole 10 mg capsule,delayed release(DR/EC) 40 mg PO DAILY gabapentin 300 mg capsule 300 mg PO BID PRN losartan [Cozaar] 50 mg tablet 25 mg PO DAILY albuterol sulfate 1.25 mg/3 mL solution for nebulization 1.25 mg inhalation Q6H PRN (Reason: shortness of breath or wheezing) Qty: 75 0RF Trelegy Ellipta 200-62.5-25 mcg blister with device 1 inh inhalation DAILY albuterol sulfate 90 mcg/actuation HFA aerosol inhaler 2 inh inhalation Q6H PRN Discharge Instructions Instructions: Ear Infection ED Additional Instructions: Please follow-up with shear grinder operator. Call today. Please continue the antibiotic that you have been prescribed. Be sure to complete the full course. Please follow-up with your primary care physician. Return to the emergency department immediately for any worsening or new concerning symptoms. Referrals: [facility] [Provider Group] HPI General Date/Time Provider Initiated Documentation: 07/24/24 14:15 . HPI Narrative: HISTORY OF PRESENT ILLNESS The patient presents for evaluation of right ear fluid. He has had persistent right ear fluid for one month. Two nights ago, he noticed discharge from the ear. His primary care physician observed fluid behind the eardrum 2.5 weeks ago. Yesterday, he found blood on three Q-tips after cleaning his ear. He reports no fever, sinus congestion, or sore throat. He mentions delayed ear pressure equalization. 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 He recently had dental implant surgery, with one implant becoming infected three times, leading to its removal. He is on a 10-day course of Levaquin, with 2-3 days remaining. He missed the first three days due to a stomach bug. He has stitches and believes healing is slow. Related Data Home Medications ?Medication ?Instructions ?Recorded ?Confirmed albuterol sulfate 90 mcg/actuation 2 inh inhalation Q6H PRN 03/29/23 07/24/24 aerosol inhaler fluticasone fur. 200 mcg-umeclid 1 inh inhalation DAILY 03/29/23 07/24/24 62.5 mcg-vilant 25 mcg inhalat.powder (Trelegy Ellipta) albuterol sulfate 1.25 mg/3 mL 1.25 mg (3 mL) inhalation Q6H PRN 04/25/23 07/24/24 solution for nebulization shortness of breath or wheezing #75 mL gabapentin 300 mg capsule 300 mg PO BID PRN 04/25/23 07/24/24 losartan 50 mg tablet (Cozaar) 25 mg PO DAILY 04/25/23 07/24/24 omeprazole 10 mg capsule,delayed 40 mg PO DAILY 04/25/23 07/24/24 release furosemide 20 mg tablet (Lasix) 10 mg PO DAILY PRN Elevated BNP 05/28/23 07/24/24 Previous Rx's ?Medication ?Instructions ?Recorded albuterol sulfate 1.25 mg/3 mL 1.25 mg (3 mL) inhalation Q6H PRN 04/25/23 solution for nebulization shortness of breath or wheezing #75 mL Allergies Allergy/AdvReac Type Severity Reaction Status Date / Time codeine AdvReac Mild Itching Verified 07/24/24 14:02 Milk Containing Products AdvReac Mild Diarrhea Verified 07/24/24 14:02 (Dairy) General Stated Complaint: EarProblem AMANDEEP: 4 Review of Systems All systems reviewed & are unremarkable except as noted in HPI and below Exam Narrative Exam Narrative: PHYSICAL EXAM General Appearance: Normal. Vital signs: Within normal limits. HEENT: Posterior oropharynx clear, no erythema or exudate. No swelling. Stitches in upper canine incisor area intact, no erythema or discharge. Left external ear normal, external canal normal, tympanic membrane fullness, no effusion. Right external ear normal with dry skin, tympanic membrane intact, no effusion, no hemotympanum. Respiratory: Within normal limits. Skin: Warm and dry, no rash. Course Vital Signs Vital signs: Vital Signs Temperature 36.9 C 07/24/24 13:57 Pulse 72 07/24/24 13:57 Respiratory Rate 14 07/24/24 13:57 Blood Pressure 154/84 H 07/24/24 13:57 Pulse Oximetry 92 07/24/24 13:57 Temperature 36.9 C 07/24/24 14:05 Temperature Source Oral 07/24/24 14:05 Pulse 72 07/24/24 14:05 Respiratory Rate 14 07/24/24 14:05 Blood Pressure 154/84 H 07/24/24 14:05 Blood Pressure Position Sitting 07/24/24 14:05 Pulse Oximetry 92 07/24/24 14:05 Oxygen Delivery Method Room Air 07/24/24 14:05 Oxygen Flow Rate 0 07/24/24 14:05 Pain Level 0 07/24/24 14:09 Medical Decision Making ASSESSMENT AND PLAN Initial Assessment: Patient presents with right ear effusion and history of dental implant infection. Differential Diagnosis: - Right ear effusion: Possible small eardrum perforation allowing fluid escape, likely healing. Bleeding may be due to irritation. Advise against Q-tips, use tissue on finger. Complete Levaquin course, 2-3 days remaining. Refer to ENT. Avoid scuba diving and air travel until cleared. - Dental implant infection: On Levaquin for dental implant infection, started after 3-day delay due to stomach bug. Continue and complete antibiotic course, 2-3 days remaining. ED Course: - Examined throat and teeth: Posterior oropharynx clear, no erythema or exudate. Stitches in upper canine incisor area intact, no erythema or discharge. - Examined ears: Left ear normal, right ear with dry skin, tympanic membrane fullness but intact, no effusion or blood. - Advised against using Q-tips, recommended using tissue on finger. - Discussed completing Levaquin course and follow-up with ENT. - Advised avoiding scuba diving and air travel until cleared by doctor. Final Assessment: Right ear effusion likely due to small eardrum perforation, healing. Dental implant infection being treated with Levaquin. Patient advised to complete antibiotic course and follow up with ENT. Clinical Impression: - Right ear effusion - Dental implant infection Disposition: - Discharge - Follow-Up: Refer to ENT for further evaluation. Patient Education: Advised against using Q-tips, recommended using tissue on finger. Discussed completing Levaquin course and avoiding scuba diving and air travel until cleared. MDM Components Evaluation: - Number of Differential Diagnoses or Management Options: Right ear effusion, Dental implant infection - Amount and Complexity of Data Reviewed: Physical examination, patient history - Risk of Complication and Morbidity or Mortality: Moderate risk due to potential complications from ear effusion and dental infection. This document was written with the assistance of LOLY Valladares. The patient consented to its use. Quality:SDOH Health Related Social Needs: No Data to Display PFSH All Active Problems (Updated 07/24/24 @ 15:00 by Alfredo Elizabeth MD) Otorrhea (Acute) Esophagitis (Acute) Fracture of fibula, distal, right, closed (Acute ~05/18/23) Persistent shortness of breath after COVID-19 (Acute) Social History Smoking/Tobacco Use Status: Never Smoking risk assessment performed?: Yes Alcohol Intake: current Alcohol Intake frequency: a few times a month Alcohol type: beer and hard liquor Drug use: Occasionally Substance use type: marijuana Housing: house Do you feel safe at home: Yes Do you feel safe in your relationship?: Yes
== END 2024-07-24 15:39 | disposition home or self-care (01) ==
PROVIDERS: Emergency Provider Student in an Organized Health Care Education/Training Program; PCP Physician Assistant
DX: H92.21 Otorrhagia, right ear (principal); H92.11 Otorrhea, right ear
CPT/HCPCS: 81025; 99282; 99283

== ENCOUNTER 2024-10-13 08:07 | Inpatient (IN) | payer OTHER, SELFPAY ==
[2024-10-13] VITALS (20 sets, daily range): BP systolic 172–212; BP diastolic 78–120; PULSE 69–83; RESP 2–18; TEMP 36.6–37.2; O2SAT 88–96
--- NOTE | 2024-10-13 07:45 | RT.EKG_ITS ---
APPROVED REPORT Exam: Resting ECG Reason for Exam: SOB Patient Location: E HR:76 bpm ECG Measurements Heart Rate 76 AXIS CO 177 P -68 QRSd 89 QRS -43 QT 395 T 44 QTc 444 Conclusion Sinus or ectopic atrial rhythm...P axis (-45,135) Left anterior fascicular block...axis(240,-40), init forces inf No Occlusion [facility]
--- NOTE | 2024-10-13 07:53 | ED.GENADUL_ITS ---
Discharge Plan Disposition Patient Disposition: Admit to [facility] Discharge Details Clinical Impression: COPD with acute exacerbation, Acute hypoxemic respiratory failure, Closed fracture of phalanx of left little finger Admit Date/Time: 10/13/24 10:00 Admit Provider: Perry Birmingham Attending Provider: Perry Birmingham Primary Care Provider: Ya Boykin ED Provider: Usama Castillo Discharge Data Discharge Date/Time-TO BE ENTERED AT DEPARTURE: 10/13/24 11:13 HPI General Date/Time Provider Initiated Documentation: 10/13/24 08:15 . HPI Narrative: MDM This is a markedly hypertensive normothermic and not tachycardic male with increased production of more purulent sputum, hypoxia with ambulation consistent with acute exacerbation of COPD for which patient will receive hospitalization following prehospital steroids we will defer additional steroids today. I considered sepsis however patient is not hypotensive nor tachycardic so I did not treat empirically with broad-spectrum antibiotics. Patient does have a history of furosemide use but has not had any lower extremity edema and had no B-lines on bedside ultrasound so I did not feel he required diuresis. No black or bloody stools to suggest GI bleed. No fevers to suggest pneumonia. No history of ethanol abuse nor anticoagulation to suggest increased risk for GI bleed. Equal breath sounds so I am not concerned for pneumothorax. Not a dialysis patient and no signs of pericardial effusion to suggest tamponade. I did obtain an ECG which was nonischemic. His intervals are within normal limits and he had no acute change compared to prior ECG. I obtained a troponin to risk stratify for ACS based on patient's age. I was in touch with Dr. Diaz as patient was found to have a distal left, nondominant, little finger phalanx fracture for which patient was placed in a removable finger splint. Will treat pain with acetaminophen. Patient does have extensive bilateral interstitial infiltrates. He had a CT of his chest performed earlier this year. He has bilateral parenchymal scarring and centrilobular emphysema. He has not had any fevers nor fatigue nor abdominal pain to suggest hantavirus pulmonary syndrome. His CBC lacks thrombocytopenia and left shift. Will defer repeat CT at this point in time. Not tachycardic nor hypotensive to suggest PE so I did not obtain a D-dimer given patient is wheezing. 3:45 PM Late charting due to patient care. Patient was accepted graciously by Dr. Birmingham from the hospitalist team. Chronic conditions affecting the care of the patient: COPD History obtained from an outside historian: Paramedics External record review: No [facility] [place] [Diagnostic interpretations performed by me: Per my independent interpretation chest x-ray shows: Per my independent interpretation EKG shows: Bilateral lung base scarring ]Medications: Doxycycline Social determinants of health affecting disposition: N/A Management discussed with: Hospitalist Treatment/interventions considered: N/A Response to therapies provided: Improved symptoms in the ED HPI This is a 79-year-old male with history of COPD arrives emergency department via EMS in setting of shortness of breath. Patient reports he has had increased phlegm that has been more purulent over the past several weeks. Yesterday evening he was moving a mattress and became more acutely short of breath. His room air sat with paramedics was 90% and he was wheezing for which he received 125 mg of methylprednisolone and 2 nebulizer treatments. He has not yet taken his home medications this morning. He said no lower extremity swelling. He has no history of cardiac disease. He has no history of DVTs or PEs. He denies routine tobacco but he does routinely drink ethanol. No history of withdrawal. He is having no chest pain. Exam General: Well-appearing in no mild distress speaking in 5-6 word sentences. Head: Normocephalic, atraumatic. Eye: Extraocular eye movements intact. No conjunctival injection. No scleral icterus. Ear, nose, mouth, throat: Grossly normal inspection. Normal voice, handling secretions normally. Neck: Trachea midline. Cardiovascular: Well-perfused distal extremities. Respiratory: End expiratory wheeze. No crackles. No stridor nor retractions. Gastrointestinal: Nondistended abdomen. Musculoskeletal: No significant lower extremity pitting edema. Moving all 4 extremities spontaneously. Skin: Normal for age and race, grossly normal temperature and turgor. No acute rash. Neurologic: Alert and appropriate, no apparent acute deficits. Psychiatric: Mood and manner are appropriate. Grooming and personal hygiene are appropriate. Related Data Home Medications ?Medication ?Instructions ?Recorded ?Confirmed albuterol sulfate 90 mcg/actuation 2 inh inhalation Q6H PRN 03/29/23 10/13/24 aerosol inhaler fluticasone fur. 200 mcg-umeclid 1 inh inhalation DAILY 03/29/23 10/13/24 62.5 mcg-vilant 25 mcg inhalat.powder (Trelegy Ellipta) albuterol sulfate 1.25 mg/3 mL 1.25 mg (3 mL) inhalation Q6H PRN 04/25/23 10/13/24 solution for nebulization shortness of breath or wheezing #75 mL gabapentin 300 mg capsule 300 mg PO BID PRN 04/25/23 10/13/24 losartan 50 mg tablet (Cozaar) 25 mg PO DAILY 04/25/23 10/13/24 omeprazole 10 mg capsule,delayed 40 mg PO DAILY 04/25/23 10/13/24 release Previous Rx's ?Medication ?Instructions ?Recorded albuterol sulfate 1.25 mg/3 mL 1.25 mg (3 mL) inhalation Q6H PRN 04/25/23 solution for nebulization shortness of breath or wheezing #75 mL Allergies Allergy/AdvReac Type Severity Reaction Status Date / Time codeine AdvReac Mild Itching Verified 10/13/24 08:03 Milk Containing Products AdvReac Mild Diarrhea Verified 10/13/24 08:03 (Dairy) General AMANDEEP: 4 Medical Decision Making Quality:SDOH Health Related Social Needs: Health related social needs inadequate housing (Z59.1) Health related social needs details pt states no issue s w housing- moved campers so no mold exposure anymore PFSH All Active Problems (Updated 10/13/24 @ 09:38 by Usama Castillo MD) Closed fracture of phalanx of left little finger (Acute) Acute hypoxemic respiratory failure (Acute) COPD with acute exacerbation (Acute) Fracture of fibula, distal, right, closed (Acute ~05/18/23) Persistent shortness of breath after COVID-19 (Acute) Social History Smoking/Tobacco Use Status: Never Smoking risk assessment performed?: Yes Alcohol Intake: current Alcohol Intake frequency: a few times a month Alcohol type: beer and hard liquor Drug use: Occasionally Substance use type: marijuana Housing: other Do you feel safe at home: Yes Do you feel safe in your relationship?: Yes POCUS Exam (ED) Limited Cardiac Exam DATE OF EXAM: 10/13/24 TIME OF EXAM: 09:40 PROVIDER THAT PERFORMED THE STUDY: Usama Anna IS THIS A REPEAT EXAM DURING THIS ENCOUNTER: no REASON FOR EXAM: Chest pain and Dyspnea VISUALIZED STRUCTURES: Four Chambers, Left ventricle and LVOT VIEW OBTAINED: Apical 4-Chamber, Parasternal long-axis, Subxiphoid and Other (Lungs bilaterally) PERTINENT FINDINGS/IMPRESSION: No pericardial effusion and No RV dilation DIFFERENTIAL DIAGNOSES: Aortic outflow track less than 4 cm, good squeeze, RV less than LV, no significant pericardial effusion. No B-lines bilaterally. Exam complete
--- NOTE | 2024-10-13 08:00 | DI.RAD_ITS ---
Exam(s) XR HAND LT COMPLETE EXAM: XR HAND LT COMPLETE CLINICAL HISTORY: Left little and ring finger pain status post fall. TECHNIQUE: 2D digital imaging was performed. COMPARISON: No exams were available for comparison FINDINGS: 3 views No evidence of acute fracture or dislocation. There is a deformity in the distal half of the 5th met acarpal consistent with healed previous fracture site at the 5th metacarpal neck level. On the later al view there is a suggestion of a nondisplaced avulsion fracture on the dorsal aspect of the base of the distal phalanx of the 5th finger. Difficult to determine if this is due fracture this part of t he advanced degenerative process which is evident at this articulation. There is mild overlying soft tissue swelling. There are advanced degenerative changes at the 1st carpometacarpal joint as well as calcification in the triangular fibrocartilage of the wrist. Degenerative changes are evident in the interphalangeal joints, most prominent in the DIP joint of the 5th finger but there are no acute fractures evident. There is advanced degenerative narrowing of the radiocarpal joint also noted. IMPRESSION: Possible subtle fracture on the dorsal aspect of the base of the distal phalanx of the 5th finger. T his finding may be related to the advanced degenerative changes at this DIP articulation. DATA REPOSITORY: RADIATION DOSE DELIVERED:
--- NOTE | 2024-10-13 08:00 | DI.RAD_ITS ---
Exam(s) XR PORTABLE CHEST AP EXAM: XR PORTABLE CHEST AP CLINICAL HISTORY: SOB. TECHNIQUE: 2D digital imaging was performed. COMPARISON: CR,XR XR PORTABLE CHEST AP from 11/23/[address] NECK CHEST WO from 07/11/2024 FINDINGS: Single AP portable view. Heart size is upper normal-minimally prominent, but unchanged. Mediastinum is not significantly wide mercy. There is unchanged platelike atelectasis or scarring in both lung bases, unchanged from 11/23/2023. Surgical clips are noted over the medial aspect of the left clavicle and right axillary region. IMPRESSION: As above but with minimal change compared to 11/23/2023. If clinically indicated follow-up CT scan c an be performed DATA REPOSITORY: RADIATION DOSE DELIVERED:
[2024-10-13 08:17] LABS: BE (Venous) 3 mmol/L (-2-3); HCO3 (Venous) 27 mmol/L (23-28); O2 Sat (Venous) 79 %; TCO2 (Venous) 24 mmol/L (24-29); pCO2 (Venous) 40 mmHg (41-51); pH (Venous) 7.43 (7.31-7.41); pO2 (Venous) 43 mmHg
[2024-10-13 08:18] LABS: Abs Immature Grans 0.03 10^3/uL (0.0-0.06); Absolute Basophil Count 0.03 10^3/uL (0.0-0.2); Absolute Eosinophil Count 0.13 10^3/uL (0.0-0.7); Absolute Lymphocyte Count 0.96 10^3/uL (1.2-3.4); Absolute Monocyte Count 0.57 10^3/uL (0.1-0.8); Basophils % 0.4 %; Eosinophils % 1.7 %; HCT 40.2 % (40.0-50.0); HGB 13.2 g/dL (13.5-17.5); Immature Grans % 0.4 %; Lymphocytes % 12.8 %; MCH 31.1 pg (27.0-33.0); MCHC 32.8 % (32.0-36.0); MCV 95 fL (80-95); MPV 9.2 fL (8.0-11.0); Monocytes % 7.6 %; Neutrophils % 77.1 %; Platelet Count 191 10^3/uL (130-400); RBC 4.25 10^6/uL (4.36-5.78); RDW-SD 48.4 fL; WBC 7.52 10^3/uL (4.4-10.8)
[2024-10-13 08:52] LABS: Anion Gap 9.6 mmol/L (3-11); BUN 18 mg/dL (7-18); CO2 27.4 mmol/L (21.0-32.0); Calcium 9.1 mg/dL (8.5-10.1); Chloride 102 mmol/L (98-107); Estimated GFR 77.04 (mL/min/1.73m2); Glucose 97 mg/dL (74-106); Magnesium 1.6 mg/dL (1.8-2.4); NT-proBNP 782 pg/mL (<300); Potassium 4.1 mmol/L (3.5-5.1); Sodium 139 mmol/L (136-145); Troponin I 53 ng/L (<or=76)
[2024-10-13 10:00] LABS: COVID-19 PCR Negative (Negative); Influenza A PCR Negative (Negative); Influenza B PCR Negative (Negative); RSV PCR Negative (Negative); Source Nasopharynx
--- NOTE | 2024-10-13 10:01 | W.PM.HP.N ---
Date of service: 10/13/24 Time of Service: 10:01 Assessment and Plan Assessment and plan (1) COPD with acute exacerbation: Status: Acute Assessment and plan: - Known history of COPD with acute exacerbation - Patient complained of shortness of breath, was given 2 albuterol treatments via EMS as well as IV steroids - Was found to be profoundly hypoxic with ambulation down to the 70s - Continue 40 mg p.o. prednisone daily, scheduled every 4 hours DuoNebs, and every 4 hours as needed albuterol - Given patient complains of increase sputum, also started on doxycycline which will be continued daily (2) Acute hypoxemic respiratory failure: Status: Acute Assessment and plan: - Secondary to COPD exacerbation as noted above - Will again check patient's ambulatory oxygen tomorrow, 10/14/2024 (3) Closed fracture of phalanx of left little finger: Status: Acute Assessment and plan: - Incidentally patient was found to have distal left fourth finger phalanx fracture for which splint was placed History of Present Illness History of Present Illness Chief Complaint: shortness of breath Narrative: 79-year-old male with a past medical history of hypertension, COPD, GERD presents to the emergency department complaints of shortness of breath. Patient states that he had increased shortness of breath and productive cough over the last 2 weeks. He also states that he has been living in a mobile home that had black mold that he is just moved out of. States that his shortness of breath is worse with ambulation but he denies any headache, lightheadedness, dizziness, chest pain, nausea vomiting or diarrhea. Upon EMS arrival the patient received 2 nebulizer treatments and dose of IV steroids. He denied any headache, lightheadedness, dizziness, chest pain, nausea vomiting or diarrhea. In the ED the patient was noted as having normal vital signs, normal physical exam with exception of increased sputum. CBC and CMP were unremarkable as was chest x-ray, however while in the emergency department the patient was ambulated on room air and desaturated into the 70s. At which time emergency room physician paged hospitalist for admission for patient with a COPD exacerbation with ambulatory hypoxic respiratory failure requiring ongoing steroid and nebulizer treatments. Review of Systems All systems reviewed & are unremarkable except as noted in HPI and below PFSH All Active Problems (Updated 10/13/24 @ 09:38 by Usama Castillo MD) Closed fracture of phalanx of left little finger (Acute) Acute hypoxemic respiratory failure (Acute) COPD with acute exacerbation (Acute) Fracture of fibula, distal, right, closed (Acute ~05/18/23) Persistent shortness of breath after COVID-19 (Acute) Social History Smoking/Tobacco Use Status: Never Smoking risk assessment performed?: Yes Alcohol Intake: current Alcohol Intake frequency: a few times a month Alcohol type: beer and hard liquor Drug use: Occasionally Substance use type: marijuana Housing: other Do you feel safe at home: Yes Do you feel safe in your relationship?: Yes Meds Allergies and Home Medications Allergies Allergy/AdvReac Type Severity Reaction Status Date / Time codeine AdvReac Mild Itching Verified 10/13/24 08:03 Milk Containing Products AdvReac Mild Diarrhea Verified 10/13/24 08:03 (Dairy) Home Medications ?Medication ?Instructions ?Recorded ?Confirmed ?Type albuterol sulfate 90 mcg/actuation 2 inh inhalation Q6H PRN 03/29/23 10/13/24 History aerosol inhaler fluticasone fur. 200 mcg-umeclid 1 inh inhalation DAILY 03/29/23 10/13/24 History 62.5 mcg-vilant 25 mcg inhalat.powder (Trelegy Ellipta) albuterol sulfate 1.25 mg/3 mL 1.25 mg (3 mL) inhalation Q6H PRN 04/25/23 10/13/24 Rx solution for nebulization shortness of breath or wheezing #75 mL gabapentin 300 mg capsule 300 mg PO BID PRN 04/25/23 10/13/24 History losartan 50 mg tablet (Cozaar) 25 mg PO DAILY 04/25/23 10/13/24 History omeprazole 10 mg capsule,delayed 40 mg PO DAILY 04/25/23 10/13/24 History release Results Labs 10/13/24 08:08 10/13/24 08:08 Labs: Laboratory Results - last 24 hr 10/13/24 10/13/24 10/13/24 08:06 08:07 08:08 WBC 7.52 RBC 4.25 L Hgb 13.2 L Hct 40.2 MCV 95 MCH 31.1 MCHC 32.8 RDW 14.0 Plt Count 191 MPV 9.2 Immature Gran % 0.4 Neutrophils % 77.1 Lymphocytes % 12.8 Monocytes % 7.6 Eosinophils % 1.7 Basophils % 0.4 Nucleated RBC % 0.0 Absolute Neutrophils 5.80 Absolute Lymphocytes 0.96 L Absolute Monocytes 0.57 Absolute Eosinophils 0.13 Absolute Basophils 0.03 VBG pH 7.43 H VBG pCO2 40 L VBG pO2 43 VBG HCO3 27 VBG Total CO2 24 VBG O2 Saturation 79 VBG Base Excess 3 Sodium 139 Potassium 4.1 Chloride 102 Carbon Dioxide 27.4 Anion Gap 9.6 BUN 18 Creatinine 1.0 Est GFR (CKD-EPI 2020) 77.04 Glucose 97 Calcium 9.1 Magnesium Cancelled 1.6 L Troponin I Cancelled 53 NT-Pro-B Natriuret Pep Cancelled 782 H COVID-19 Source SARS-CoV-2 (PCR) Influenza Type A (PCR) Influenza Type B (PCR) RSV (PCR) 10/13/24 09:10 WBC RBC Hgb Hct MCV MCH MCHC RDW Plt Count MPV Immature Gran % Neutrophils % Lymphocytes % Monocytes % Eosinophils % Basophils % Nucleated RBC % Absolute Neutrophils Absolute Lymphocytes Absolute Monocytes Absolute Eosinophils Absolute Basophils VBG pH VBG pCO2 VBG pO2 VBG HCO3 VBG Total CO2 VBG O2 Saturation VBG Base Excess Sodium Potassium Chloride Carbon Dioxide Anion Gap BUN Creatinine Est GFR (CKD-EPI 2020) Glucose Calcium Magnesium Troponin I NT-Pro-B Natriuret Pep COVID-19 Source Nasopharynx SARS-CoV-2 (PCR) Negative Influenza Type A (PCR) Negative Influenza Type B (PCR) Negative RSV (PCR) Negative Last Vital Signs Temp 98.2 F 10/13/24 07:57 Pulse 72 10/13/24 09:46 Resp 18 10/13/24 09:56 BP 182/84 H 10/13/24 09:46 Pulse Ox 92 10/13/24 09:46 PAWSS Have you Been Recently Intoxicated or Drunk Within the Last 30 days?: No Have you Ever Experienced Previous Episodes of Alcohol Withdrawal?: No Have you ever Experienced Withdrawal Seizures?: No Have you ever Experienced Delirium Tremens(DT)s?: No Have you ever undergone Alcohol Rehabilitation Treatment (i.e, inpt ot outpatient treatment programs)?: No Have you ever Experienced Blackouts?: No Have you ever Combined Alcohol with other Downers within the last 90 days?: No Have you ever Combined Alcohol with any other Substance of Abuse during the last 90 days?: No Result: 0 Time Spent Time spent with Patient: >75 minutes Time was spent: preparing to see the patient(eg.review tests), obtaining and/or reviewing separately otained hiistory, ordering medications,tests, procedures, referring, communicating with other health professional healthcare representative, indepentently interpreting results, counseling the patient and care coordination
[2024-10-13] MEDS: Doxycycline Hyclate 100 MG CAP PO (10:21)
[2024-10-13] MEDS: Acetaminophen 500 MG TAB 1000 MG PO (10:21)
[2024-10-13] MEDS: Losartan 25 MG TAB PO (10:21)
[2024-10-13 10:23] LABS: Troponin I 76 ng/L (<or=76)
[2024-10-13] MEDS: Albuterol/Ipratropium 3 ML UPD VIAL (10:39)
--- NOTE | 2024-10-13 10:59 | W.PC.ACHO ---
Registration Status: Primary Language: Preferred Language: ED Information & Data Chief Complaint SOB 10/13/24 09:56 Chief Complaint SOB 10/13/24 07:57 Triage Note BIBA increased difficulty 10/13/24 07:57 breathing over x2 wks, productive cough,says there is black mold in camper. prior to arrival x2 albuterol & 125 solumedrol Most Recent Vital Signs Temperature 36.8 C 10/13/24 07:57 Temperature Source Oral 10/13/24 07:57 Pulse 74 10/13/24 10:39 Respiratory Rate 18 10/13/24 10:39 Respiratory Effort Non-Labored 10/13/24 09:56 Respiratory Depth Normal 10/13/24 09:56 Respiratory Pattern Normal 10/13/24 09:56 Blood Pressure 182/84 H 10/13/24 09:46 Blood Pressure Mean 121 10/13/24 09:46 Pulse Oximetry 94 10/13/24 10:39 Oxygen Delivery Method Room Air 10/13/24 10:39 Oxygen Flow Rate 0 10/13/24 10:39 Allergies codeine Adverse Reaction (Mild, Verified 10/13/24 08:03) Itching Milk Containing Products (Dairy) Adverse Reaction (Mild, Verified 10/13/24 08:03) Diarrhea Precautions Isolation Standard precaution 10/13/24 09:56 IV IV Catheter Type [Left Saline Lock Antecubital] IV Catheter Gauge [Left 18 Antecubital] Diagnostics 10/13/24 10/13/24 10/13/24 Range/Units 11:06 09:52 09:10 WBC (4.4-10.8) 10^3/uL RBC (4.36-5.78) 10^6/uL Hgb (13.5-17.5) g/dL Hct (40.0-50.0) % MCV (80-95) fL MCH (27.0-33.0) pg MCHC (32.0-36.0) % RDW (11.8-14.1) % Plt Count (130-400) 10^3/uL MPV (8.0-11.0) fL Immature Gran % % Neutrophils % % Lymphocytes % % Monocytes % % Eosinophils % % Basophils % % Nucleated RBC % (0.0-0.3) % Absolute Neutrophils (1.2-6.7) 10^3/uL Absolute Lymphocytes (1.2-3.4) 10^3/uL Absolute Monocytes (0.1-0.8) 10^3/uL Absolute Eosinophils (0.0-0.7) 10^3/uL Absolute Basophils (0.0-0.2) 10^3/uL VBG pH (7.31-7.41) VBG pCO2 (41-51) mmHg VBG pO2 mmHg VBG HCO3 (23-28) mmol/L VBG Total CO2 (24-29) mmol/L VBG O2 Saturation % VBG Base Excess (-2-3) mmol/L Sodium (136-145) mmol/L Potassium (3.5-5.1) mmol/L Chloride (98-107) mmol/L Carbon Dioxide (21.0-32.0) mmol/L Anion Gap (3-11) mmol/L BUN (7-18) mg/dL Creatinine (0.70-1.30) mg/dL Est GFR (CKD-EPI 2020) (mL/min/1.73m2) Glucose (74-106) mg/dL Calcium (8.5-10.1) mg/dL Magnesium Troponin I Pending 76 NT-Pro-B Natriuret Pep COVID-19 Source Nasopharynx SARS-CoV-2 (PCR) Negative (Negative) Influenza Type A (PCR) Negative (Negative) Influenza Type B (PCR) Negative (Negative) RSV (PCR) Negative (Negative) 10/13/24 10/13/24 10/13/24 Range/Units 08:08 08:07 08:06 WBC 7.52 (4.4-10.8) 10^3/uL RBC 4.25 L (4.36-5.78) 10^6/uL Hgb 13.2 L (13.5-17.5) g/dL Hct 40.2 (40.0-50.0) % MCV 95 (80-95) fL MCH 31.1 (27.0-33.0) pg MCHC 32.8 (32.0-36.0) % RDW 14.0 (11.8-14.1) % Plt Count 191 (130-400) 10^3/uL MPV 9.2 (8.0-11.0) fL Immature Gran % 0.4 % Neutrophils % 77.1 % Lymphocytes % 12.8 % Monocytes % 7.6 % Eosinophils % 1.7 % Basophils % 0.4 % Nucleated RBC % 0.0 (0.0-0.3) % Absolute Neutrophils 5.80 (1.2-6.7) 10^3/uL Absolute Lymphocytes 0.96 L (1.2-3.4) 10^3/uL Absolute Monocytes 0.57 (0.1-0.8) 10^3/uL Absolute Eosinophils 0.13 (0.0-0.7) 10^3/uL Absolute Basophils 0.03 (0.0-0.2) 10^3/uL VBG pH 7.43 H (7.31-7.41) VBG pCO2 40 L (41-51) mmHg VBG pO2 43 mmHg VBG HCO3 27 (23-28) mmol/L VBG Total CO2 24 (24-29) mmol/L VBG O2 Saturation 79 % VBG Base Excess 3 (-2-3) mmol/L Sodium 139 (136-145) mmol/L Potassium 4.1 (3.5-5.1) mmol/L Chloride 102 (98-107) mmol/L Carbon Dioxide 27.4 (21.0-32.0) mmol/L Anion Gap 9.6 (3-11) mmol/L BUN 18 (7-18) mg/dL Creatinine 1.0 (0.70-1.30) mg/dL Est GFR (CKD-EPI 2020) 77.04 (mL/min/1.73m2) Glucose 97 (74-106) mg/dL Calcium 9.1 (8.5-10.1) mg/dL Magnesium 1.6 L Cancelled Troponin I 53 Cancelled NT-Pro-B Natriuret Pep 782 H Cancelled COVID-19 Source SARS-CoV-2 (PCR) (Negative) Influenza Type A (PCR) (Negative) Influenza Type B (PCR) (Negative) RSV (PCR) (Negative) Intake and Output - 24 Hour Total 10/13/24 07:48 thru 10/13/24 10:24 Intake Total 10 Output Total 275 Balance -265 Weight 79.379 kg Intake: IV 10 Output: Urine 275 Falls Risk Assessment History of Falls Previous History 10/13/24 09:56 Fall Total Score 15 10/13/24 09:56 Level of Risk Standard/Low Risk 10/13/24 09:56 Problems (Last Reviewed 07/11/24 @ 12:46 by Prasad Swenson NP) Closed fracture of phalanx of left little finger (Acute) Acute hypoxemic respiratory failure (Acute) COPD with acute exacerbation (Acute) v v v v v v v v v Sending and/or Receiving Nurses: Please use comment section below to note any information pertinent to the patient hand-off not included above. Information / Comments: clay Report received from:
[2024-10-13 11:30] LABS: Troponin I 86 ng/L (<or=76)
[2024-10-13] MEDS: methylPREDNISolone SUCC 125 MG VIAL IVP (11:54)
[2024-10-13] MEDS: Albuterol/Ipratropium 3 ML UPD VIAL UPD ×3 (12:48→23:43)
--- NOTE | 2024-10-13 15:17 | PHA.REVIEW2 ---
Pharmacy Admission Review Admission Clinical Review Admission Pharmacy Review: Closed fracture of phalanx of left little finger (Acute) Acute hypoxemic respiratory failure (Acute) COPD with acute exacerbation (Acute) codeine Adverse Reaction (Mild, Verified 10/13/24 08:03) Itching Milk Containing Products (Dairy) Adverse Reaction (Mild, Verified 10/13/24 08:03) Diarrhea Resuscitation Status Full Code Height 5 ft 10 in Weight 79.379 kg Pharmacy Admission Review Renal Dosing Renal Dosing: BUN 18 mg/dL (7-18) 10/13/24 08:08 Creatinine 1.0 mg/dL (0.70-1.30) 10/13/24 08:08 Medications needing adjustments: Reviewed (CrCl 68.35 mL/min) List of meds needing interventions: Current medications are okay Anticoagulation Anticoagulation: Hgb 13.2 g/dL (13.5-17.5) L 10/13/24 08:08 Hct 40.2 % (40.0-50.0) 10/13/24 08:08 Plt Count 191 10^3/uL (130-400) 10/13/24 08:08 Creatinine 1.0 mg/dL (0.70-1.30) 10/13/24 08:08 DVT Prophylaxis: Reviewed Medications: Enoxaparin (40mg daily) Relevant Labs Relevant Labs: Sodium 139 mmol/L (136-145) 10/13/24 08:08 Potassium 4.1 mmol/L (3.5-5.1) 10/13/24 08:08 Chloride 102 mmol/L (98-107) 10/13/24 08:08 Magnesium 1.6 mg/dL (1.8-2.4) L 10/13/24 08:08 Electrolytes, C-Reactive P, ESR: Reviewed Cardiac Review Cardiac Review: Troponin I 86 ng/L (<or=76) H* 10/13/24 11:06 NT-Pro-B Natriuret Pep 782 pg/mL (<300) H 10/13/24 08:08 Blood Pressure 172/88 1155 Blood Pressure 189/120 1136 Blood Pressure 189/120 1118 Blood Pressure 190/95 1101 Blood Pressure 199/104 1001 Blood Pressure 182/84 0946 Blood Pressure 212/101 0930 Blood Pressure 201/103 0915 Blood Pressure 196/98 0901 Blood Pressure 181/90 0846 Blood Pressure 176/78 0831 Blood Pressure 202/100 0757 BP, HR, EF%: Reviewed (HR WNL, Ox 90) List meds needing interventions: Has order for losartan 25mg daily QTc Review QTc: Reviewed (444 from 10/13/24) IV to PO Switch IV Medications: Reviewed (ondansetron) Home Meds Home Med List reviewed: Intervened Relevent Home Meds Not ordered & why?: Trelegy (substituted with Symbicort and Spiriva per pharmacy protocol) Current Meds Current Medication Order Review: Reviewed
[2024-10-13] MEDS: Ondansetron 4 MG/2 ML VIAL IVP (15:35)
[2024-10-13] MEDS: Acetaminophen 325 MG TAB PO ×2 (16:46→20:22)
[2024-10-13] MEDS: Gabapentin 300 MG CAP PO (16:46)
[2024-10-13] MEDS: Budesonide/Formoterol 160/4.5 6 GM 60 PUFF INH IH (20:11)
[2024-10-13] MEDS: Normal Saline Flush 10 ML SYR IVP (20:23)
[2024-10-13] MEDS: Diclofenac 1% Gel 100 GM TUBE TP (21:46)
[2024-10-14] VITALS (17 sets, daily range): BP systolic 150–184; BP diastolic 82–100; PULSE 67–90; RESP 3–18; TEMP 36.5–37.3; O2SAT 84–93
[2024-10-14] MEDS: Acetaminophen 325 MG TAB PO ×3 (00:03→20:50)
[2024-10-14] MEDS: Gabapentin 300 MG CAP PO ×2 (00:05→20:51)
[2024-10-14] MEDS: traZODone 50 MG TAB PO (00:39)
[2024-10-14] MEDS: Albuterol/Ipratropium 3 ML UPD VIAL UPD ×4 (06:00→23:27)
[2024-10-14] MEDS: Omeprazole 20 MG CAPCR 40 MG PO (06:59)
[2024-10-14 07:02] LABS: HCT 39.7 % (40.0-50.0); HGB 13.5 g/dL (13.5-17.5); MCH 31.1 pg (27.0-33.0); MCV 92 fL (80-95); MPV 9.5 fL (8.0-11.0); Platelet Count 207 10^3/uL (130-400); RBC 4.34 10^6/uL (4.36-5.78); RDW-SD 47.2 fL; WBC 9.63 10^3/uL (4.4-10.8)
[2024-10-14 07:23] LABS: Anion Gap 10.2 mmol/L (3-11); BUN 27 mg/dL (7-18); CO2 27.8 mmol/L (21.0-32.0); CREATININE 1.2 mg/dL (0.70-1.30); Chloride 102 mmol/L (98-107); Glucose 118 mg/dL (74-106); Magnesium 1.8 mg/dL (1.8-2.4); Sodium 140 mmol/L (136-145)
--- NOTE | 2024-10-14 08:54 | INITIAL_ITS ---
Date of service: 10/14/24 Time of Service: 08:54 Care Management Initial Assmt Initial Assessment Reason for Hospitalization: COPD exacerbation Functional Status/Living Situation Patient Presentation: Mat presented to the ED yesterday morning with c/o SOB. He has a history of COPD, and stated that he has noticed increased SOB and productive cough over the last 2 weeks. He had a desat to the 70's while ambulating in the ED. He was admitted for ongoing steroids (was receiving as outpatient) and nebulizer treatments. Mat had a walk test today, which he failed. RT reached out to the [place] to coordinate home [place]2. [place] for O2 that is only needed for activity. Mat does not have any other insurance, including Medicare. Mat was notified that O2 will not be paid for. He was agreeable to a [facility] referral to see if there is an affordable option for private insurance or if he qualifies for medicaid. Referral was sent. Mat was very pleasant with . He enjoys telling bad jokes. He denies any real community needs. He is hoping to buy a new place soon, either in [place], [place], or in [place] where his 4 children live, or both. He is currently in a camper in [place], on a property he owns, and he has 3 friends who are also on the same property. 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 He recently received a large settlement, and was very pleased to be able to give a large sum to his 4 children and also to all of his grandchildren. He is very pleased that he was able to help out his family in this way. Town of Residence: [place] Significant Other/Family: Out of area (4 children live in [place]. Mat has been in [place] for only 2 years. 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) Instrumental Activities of Daily Living (ADLs): Independent Activities/Hobbies/SocialSupport: likes to be outdoors, but is becoming short of breath with exertion Medications Medication Management: No Issues/Barriers identified Advance Directives Advance Directives: Do you have an Advance Directive: Y 03/29/23 12:34 AD On File at [facility]: N 03/29/23 12:34 Date Asked 10/13/24 10/13/24 08:09 AD Date Reviewed COLST On File at [facility] COLST Date Scanned Code Status Resuscitation Status Full Code Insurance Coverage/Financial Issues Insurance: [place] Does NOT have Medicare Care Team Visit Care Team Role Provider Type Ya Boykin Primary Care Provider NON-[facility] STAFF PHYSICIAN Usama Castillo MD Emergency Provider [facility] STAFF PHYSICIAN Perry Birmnigham MD Admit Provider [facility] STAFF PHYSICIAN Attending Provider Discharge Potential Discharge Needs: PCP F/U Appt Anticipated Barriers to Discharge: None Identified Patient/Family Education Needs: Review discharge instructions, discuss Ask Me Three Transportation: Private vehicle Plan: Anticipate that Mat will be discharged home with no new services once medically stable. He will f/u with his PCP and continue per his prescribed plan of care. CM will continue to follow and to update the plan as needed. Social Determinants of Health Screening Social Determinants of health last assessed in clinic: 10/14/24 Will the Patient Participate in the Screening?: Yes Do you worry about having a steady place to live?: no Problems where you live: mold In the past 12 months, have you had to go without electric, gas, oil or water in your home?: no 1. Within the past 12 months, we worried whether our food would run out before we got money to buy more.: Don't know/refused 2. Within the past 12 months, the food we bought just didn't last and we didn't have money to get more.: Don't know/refused Has lack of transportation kept you from medical appointments or from doing things needed for daily living?: no Has anyone in your life made you feel unsafe or unsupported?: no How hard is it for you to pay for the very basics like food, housing, medical care, and heating? Would you say it is:: Not hard at all Do you want help finding or keeping work or a job?: I do not need or want help If for any reason you need help with day-to-day activities such as bathing, preparing meals, shopping, managing finances, etc., do you get the help you need?: I get all the help I need How often do you feel lonely or isolated from those around you?: Never Do you speak a language other than Luxembourger at home?: No Health Related Social Needs Health related social needs: inadequate housing (Z59.1) Health related social needs details: pt states no issues w housing- moved campers so no mold exposure anymore PFSH All Active Problems (Updated 10/13/24 @ 09:38 by Usama Castillo MD) Closed fracture of phalanx of left little finger (Acute) Acute hypoxemic respiratory failure (Acute) COPD with acute exacerbation (Acute) Fracture of fibula, distal, right, closed (Acute ~05/18/23) Persistent shortness of breath after COVID-19 (Acute) Social History Smoking/Tobacco Use Status: Never Smoking risk assessment performed?: Yes Alcohol Intake: current Alcohol Intake frequency: a few times a month Alcohol type: beer and hard liquor Drug use: Occasionally Substance use type: marijuana Housing: other Do you feel safe at home: Yes Do you feel safe in your relationship?: Yes Readmission Within the Past 30 Days Yes or No: No
[2024-10-14] MEDS: Tiotropium Bromide-Respimat 10 PUFF INH 2 PUFF IH (09:00)
[2024-10-14] MEDS: Budesonide/Formoterol 160/4.5 6 GM 60 PUFF INH IH ×2 (09:00→19:53)
[2024-10-14] MEDS: predniSONE 20 MG TAB 40 MG PO (09:30)
[2024-10-14] MEDS: Enoxaparin 40 MG/0.4 ML SYR SC (09:30)
[2024-10-14] MEDS: Normal Saline Flush 10 ML SYR IVP ×2 (09:31→20:52)
[2024-10-14] MEDS: Diclofenac 1% Gel 100 GM TUBE TP ×3 (09:31→20:51)
[2024-10-14] MEDS: Losartan 50 MG TAB 25 MG PO (09:33)
--- NOTE | 2024-10-14 14:07 | W.PM.PROGNOT ---
Date of Service Date of service: 10/14/24 Time of Service: 14:07 Assessment and Plan Assessment and plan (1) COPD with acute exacerbation: Status: Acute Assessment and plan: - Known history of COPD with acute exacerbation - Patient complained of shortness of breath, was given 2 albuterol treatments via EMS as well as IV steroids - Was found to be profoundly hypoxic with ambulation down to the 70s - Continue 40 mg p.o. prednisone daily, scheduled every 4 hours DuoNebs, and every 4 hours as needed albuterol - Given patient complains of increase sputum, also started on doxycycline which will be continued daily (2) Acute hypoxemic respiratory failure: Status: Acute Assessment and plan: - Secondary to COPD exacerbation as noted above - Ambulatory test determined the patient will require supplemental oxygen with movement - [facility] declined to provide supplemental oxygen to the patient, [facility] at [facility] (3) Closed fracture of phalanx of left little finger: Status: Acute Assessment and plan: - Incidentally patient was found to have distal left fourth finger phalanx fracture for which splint was placed Subjective Subjective Interval history since last seen: Patient states that he is feeling better and understands that he needs supplemental oxygen at home but that we are working on a company to be able to provide it to him. He has no other complaints or concerns at this time. Exam Narrative Exam Narrative: Well-appearing older gentleman laying in bed in no acute distress, ANO x 4, heart regular rhythm, lungs with minimal end expiratory wheezing throughout lung valladares, abdomen soft, nontender, nondistended Objective Last Vital Signs Temp 99.0 F 10/14/24 11:42 Pulse 72 10/14/24 11:42 Resp 14 10/14/24 11:42 BP 153/97 H 10/14/24 11:42 Pulse Ox 91 L 10/14/24 11:42 Laboratory Results - last 24 hr 10/14/24 06:22 WBC 9.63 RBC 4.34 L Hgb 13.5 Hct 39.7 L MCV 92 MCH 31.1 MCHC 34.0 RDW 14.0 Plt Count 207 MPV 9.5 Sodium 140 Potassium 4.0 Chloride 102 Carbon Dioxide 27.8 Anion Gap 10.2 BUN 27 H Creatinine 1.2 Est GFR (CKD-EPI 2020) 61.90 Glucose 118 H Calcium 9.0 Magnesium 1.8 PAWSS Have you Been Recently Intoxicated or Drunk Within the Last 30 days?: No Have you Ever Experienced Previous Episodes of Alcohol Withdrawal?: No Have you ever Experienced Withdrawal Seizures?: No Have you ever Experienced Delirium Tremens(DT)s?: No Have you ever undergone Alcohol Rehabilitation Treatment (i.e, inpt ot outpatient treatment programs)?: No Have you ever Experienced Blackouts?: No Have you ever Combined Alcohol with other Downers within the last 90 days?: No Have you ever Combined Alcohol with any other Substance of Abuse during the last 90 days?: Yes Positive Blood Alcohol level on Presentation? [PCS.BAL]: No Evidence of Increased Autonomic Activity (i.e. HR>120, tremor, sweating, agitation, nausea)?: No Result: 2 Time Spent with Patient Time Spent with Patient: >50 minutes Time was spent: preparing to see the patient(eg.review tests), obtaining and/or reviewing separately otained hiistory, ordering medications,tests, procedures, referring, communicating with other health director of career resources, indepentently interpreting results, counseling the patient and care coordination
[2024-10-14] MEDS: Albuterol 2.5 MG/3 ML INH SOLN VIAL UPD (15:49)
[2024-10-14] MEDS: Doxycycline Hyclate 100 MG CAP PO (17:48)
--- NOTE | 2024-10-14 18:45 | RESPIRATORY ---
10/14/2024 Patient was able to maintain greater than 88% on 3L continuous O2 during ambulation. The patient was also tested on 4L pulse dose O2 and was able to maintain greater than 88% SPO2 during ambulation. Patient lowest SPO2 84% Patient does not require O2 at rest [facility] need because they state they do not cover ambulatory oxygen and he will need to get private insurance to have his oxygen covered. Care management and [facility] are aware and are trying to help patient explore options.
[2024-10-15] VITALS (11 sets, daily range): BP systolic 103–190; BP diastolic 59–100; PULSE 63–88; RESP 3–18; TEMP 36.3–37; O2SAT 90–98
[2024-10-15] MEDS: traZODone 50 MG TAB PO (01:02)
[2024-10-15] MEDS: Acetaminophen 325 MG TAB PO (01:03)
[2024-10-15] MEDS: Losartan 25 MG TAB PO (02:26)
[2024-10-15] MEDS: Albuterol/Ipratropium 3 ML UPD VIAL UPD ×2 (06:03→11:51)
[2024-10-15 06:26] LABS: BUN 27 mg/dL (7-18); CREATININE 1.1 mg/dL (0.70-1.30); Calcium 9.2 mg/dL (8.5-10.1); Chloride 103 mmol/L (98-107); Estimated GFR 68.71 (mL/min/1.73m2); Glucose 107 mg/dL (74-106); Magnesium 1.9 mg/dL (1.8-2.4); Potassium 3.6 mmol/L (3.5-5.1); Sodium 139 mmol/L (136-145); Troponin I 45 ng/L (<or=76)
[2024-10-15] MEDS: Diclofenac 1% Gel 100 GM TUBE TP ×2 (08:15→12:14)
[2024-10-15] MEDS: Losartan 50 MG TAB 25 MG PO (08:15)
[2024-10-15] MEDS: Tiotropium Bromide-Respimat 10 PUFF INH 2 PUFF IH (08:15)
[2024-10-15] MEDS: Budesonide/Formoterol 160/4.5 6 GM 60 PUFF INH IH (08:15)
[2024-10-15] MEDS: Doxycycline Hyclate 100 MG CAP PO (08:15)
[2024-10-15] MEDS: Normal Saline Flush 10 ML SYR IVP (08:42)
[2024-10-15] MEDS: predniSONE 20 MG TAB 40 MG PO (08:43)
[2024-10-15] MEDS: Omeprazole 20 MG CAPCR 40 MG PO (08:43)
--- NOTE | 2024-10-15 14:34 | PDOC.CMPRO ---
Care Management Progress Note Progress Note Text Progress Note Text: Mat was awake and lying in bed when CM met with him; he is pleasant and easy to engage in conversation. He has dyspnea with exertion and requires supplemental O2 with ambulation. Unfortunately, the [place] will not cover Discharge Plan: Social Determinants of Health Screening Social Determinants of health last assessed in clinic: 10/14/24 Will the Patient Participate in the Screening?: Yes Do you worry about having a steady place to live?: no Problems where you live: mold In the past 12 months, have you had to go without electric, gas, oil or water in your home?: no Has lack of transportation kept you from medical appointments or from doing things needed for daily living?: no Has anyone in your life made you feel unsafe or unsupported?: no How hard is it for you to pay for the very basics like food, housing, medical care, and heating? Would you say it is:: Not hard at all Do you want help finding or keeping work or a job?: I do not need or want help If for any reason you need help with day-to-day activities such as bathing, preparing meals, shopping, managing finances, etc., do you get the help you need?: I get all the help I need How often do you feel lonely or isolated from those around you?: Never Do you speak a language other than Turkmen at home?: No Health Related Social Needs Health related social needs: inadequate housing (Z59.1) Health related social needs details: pt states no issues w housing- moved campers so no mold exposure anymore
--- NOTE | 2024-10-15 15:06 | CMDISCH_ITS ---
Date of service: 10/15/24 Time of Service: 15:06 LACE Index Scoring Tool Questions: Length of Stay (in days): 2 Was the patient admitted via the E.D.?: Yes Comorbidities: Chronic Pulmonary Disease E.D. Visits: 4 Answers: Total Score: 11 Risk of Readmission: High Risk Care Management Discharge Plan Reason for Hospitalization: Hypoxic respiratory failure Discharge Plan: Discharge home via RCT private vehicle. Follow up with your [facility] and discharge plan of care as directed. No new services are ordered prior to discharge. Radha ([facility] Call Center Recruiter)will be reaching out to you about getting connected with Directed Care. Patient/Family Education Needs: Review discharge instructions and plan to follow up after discharge. Discuss ask me three. SDOH Health Related Social Needs: Health related social needs inadequate housing (Z59.1) Health related social needs details pt states no issue s w housing- moved campers so no mold exposure anymore Health related social needs details: pt states no issues w housing- moved campers so no mold exposure anymore
--- NOTE | 2024-10-16 13:29 | DSE_ITS ---
Date of service: 10/16/24 Time of Service: 13:29 DS: Diagnosis Discharge Diagnosis (1) COPD with acute exacerbation: Status: Resolved (2) Acute hypoxemic respiratory failure: Status: Resolved (3) Closed fracture of phalanx of left little finger: Status: Acute Discharge Plan Disposition Patient Disposition: Home Condition: Good Discharge Details Reason For Visit: Acute exacerbation COPD Admit Date/Time: 10/13/24 10:00 Admit Provider: Perry Birmingham Attending Provider: Perry Birmingham Primary Care Provider: Ya Boykin Hospital Course Hospital Course: Patient initially presented with signs of symptms of a COPD exacerbation with ambulatory hypoxia. He was treagted with steroids and nebulizers and had improvement of his sypmptoms. He initially appeared to requires home oxygen with ambulation, but while working on setting this up for discharge the patient was reevaluated and was able to maintain his oxygen levels above 90% and was therefore determined to be stable to discharge home. Home Meds and New Rx's Prescriptions: New prednisone 20 mg Tablet 40 mg PO DAILY Qty: 4 0RF Continued omeprazole 10 mg capsule,delayed release(DR/EC) 40 mg PO DAILY gabapentin 300 mg capsule 300 mg PO BID PRN losartan [Cozaar] 50 mg tablet 25 mg PO DAILY albuterol sulfate 1.25 mg/3 mL solution for nebulization 1.25 mg inhalation Q6H PRN (Reason: shortness of breath or wheezing) Qty: 75 0RF Trelegy Ellipta 200-62.5-25 mcg blister with device 1 inh inhalation DAILY albuterol sulfate 90 mcg/actuation HFA aerosol inhaler 2 inh inhalation Q6H PRN Discharge Instructions Stand Alone Forms: Nursing Discharge Form Referrals: Ya Boykin [Primary Care Provider] - (Called and spoke with an answering service for the [facility]. They took all the information and they will call the pt. ) Activity:: Activity as Tolerated Equipment/Supplies:: No Equipment Needed Diet:: As Tolerated Discharge Orders Discharge Orders: Discharge Order (Routine); Ordered 10/15/24 Ordered By: Perry Birmingham Discharge Data Discharge Date/Time-TO BE ENTERED AT DEPARTURE: 10/15/24 16:39 DS: Summary Time Spent with Patient providing and/or coordinating discharge services: Greater than 30 minutes Status at Discharge Functional status at discharge: independent ambulation Overall status at discharge: patient is back to baseline Mental Status: mental status grossly normal Speech and Movement: speech and movement normal Mood: congruent mood Affect: normal affect Quality:SDOH Health Related Social Needs: Health related social needs inadequate housing (Z59.1) Health related social needs details pt states no issue s w housing- moved campers so no mold exposure anymore Health related social needs details: pt states no issues w housing- moved [place] so no mold exposure anymore Exam Narrative Exam Narrative: Well-appearing older gentleman laying in bed in no acute distress, ANO x 4, heart regular rhythm, lungs with minimal end expiratory wheezing throughout lung valladares, abdomen soft, nontender, nondistended Psych Mental Status: mental status grossly normal Speech and Movement: speech and movement normal Mood: congruent mood Affect: normal affect DS: Data Vitals/I&O Vitals and I&O: Vital Signs Temperature 98.1 F 10/15/24 11:05 Temperature Source Temporal Artery Scan 10/15/24 11:05 Pulse 72 10/15/24 12:21 Pulse Rhythm Regular 10/13/24 11:18 Pulse 78 10/13/24 11:01 Respiratory Rate 18 10/15/24 12:21 Respiratory Effort Short of Breath, Incrsd Work of Breathing 10/13/24 11:18 Respiratory Depth Normal 10/13/24 11:18 Respiratory Pattern Normal 10/13/24 11:18 Blood Pressure 186/97 H 10/15/24 11:05 Blood Pressure Mean 126 10/15/24 11:05 Pulse Oximetry 93 10/15/24 12:21 Oxygen Delivery Method Room Air 10/15/24 11:51 Oxygen Flow Rate 0 10/15/24 11:51 Pain Level 2 10/15/24 15:55 Comment RN notified 10/14/24 11:42 Intake & Output 10/15/24 10/16/24 10/16/24 17:59 05:59 17:59 Intake Total Balance Intake: IV PFSH All Active Problems (Updated 10/16/24 @ 00:02 by ERNIE GEORGE) Closed fracture of phalanx of left little finger (Acute) Fracture of fibula, distal, right, closed (Acute ~05/18/23) Persistent shortness of breath after COVID-19 (Acute) Social History Smoking/Tobacco Use Status: Never Smoking risk assessment performed?: Yes Alcohol Intake: current Alcohol Intake frequency: a few times a month Alcohol type: beer and hard liquor Drug use: Occasionally Substance use type: marijuana Housing: other Do you feel safe at home: Yes Do you feel safe in your relationship?: Yes Time Spent with Patient Time Spent with Patient: <45 minutes Time was spent: preparing to see the patient(eg.review tests)
== END 2024-10-15 16:39 | disposition home or self-care (01) | DRG 190 ==
LOC: ER 09:41 → MS 11:17
PROVIDERS: Family Medicine; Admitting Provider Family Medicine; Emergency Provider Emergency Medicine; PCP Physician Assistant; Responsible Provider Family Medicine; Visit Provider Family Medicine
DX: J44.1 Chronic obstructive pulmonary disease with (acute) exacerbation (principal); J96.01 Acute respiratory failure with hypoxia; S62.637A Displaced fracture of distal phalanx of left little finger, initial encounter for closed fracture; F12.90 Cannabis use, unspecified, uncomplicated; I10 Essential (primary) hypertension; K21.9 Gastro-esophageal reflux disease without esophagitis; R51.9 Headache, unspecified; F10.90 Alcohol use, unspecified, uncomplicated; R11.0 Nausea
CPT/HCPCS: 00123; 36415; 80048; 82805; 85027; 87637; 93005; 93308; 94618; 94640; 96374; 99285; J1650; 71045; 73130; 83735; 83880; 84484; 85025; 93010; 94664; 94760; 99223; 99233; 99239; J2405; J2919; J7512; J7613; J7620

== ENCOUNTER 2024-11-30 09:27 | Emergency (ER) | payer OTHER, SELFPAY ==
[2024-11-30] VITALS (13 sets, daily range): BP systolic 135; BP diastolic 82–83; PULSE 65–89; RESP 13–23; TEMP 36.8; O2SAT 91–96
--- NOTE | 2024-11-30 09:17 | RT.EKG_ITS ---
APPROVED REPORT Exam: Resting ECG Reason for Exam: SOB Patient Location: E HR:82 bpm ECG Measurements Heart Rate 82 AXIS GA 205 P 44 QRSd 92 QRS -65 QT 361 T 54 QTc 421 Conclusion Sinus rhythm...normal P axis, V-rate 60- 99 Multiform ventricular premature complexes...short R-R, variable morphology Inferior infarct, old...Q >35mS, II III aVF No Occlusion W[place]
--- NOTE | 2024-11-30 09:20 | W.ED.GENAD ---
Discharge Plan Disposition Patient Disposition: Home Discharge Details Clinical Impression: Closed fracture of left scapula, Breath shortness Primary Care Provider: Ya Boykin ED Provider: Usama Castillo Home Meds and New Rx's Prescriptions: New Morphine Ir, 4 Tabs/Btl [Msir, 4 Tabs/Btl] 15 mg PO DISPENSE 3 Days 0RF Continued omeprazole 10 mg capsule,delayed release(DR/EC) 40 mg PO DAILY gabapentin 300 mg capsule 600 mg PO BID PRN losartan [Cozaar] 50 mg tablet 25 mg PO DAILY Patient Comments: states hes now taking 75mg per [facility] albuterol sulfate 1.25 mg/3 mL solution for nebulization 1.25 mg inhalation Q6H PRN (Reason: shortness of breath or wheezing) Qty: 75 0RF Patient Comments: unable to use- no electricity and ran out of gas for his generator acetaminophen 500 mg capsule 1,000 mg PO Q6H PRN Trelegy Ellipta 200-62.5-25 mcg blister with device 1 inh inhalation DAILY albuterol sulfate 90 mcg/actuation HFA aerosol inhaler 2 inh inhalation Q6H PRN Discharge Instructions Instructions: Shoulder Blade Fracture (DC) Additional Instructions: You were seen in the emergency department for your shoulder pain. You were found to have a fracture. Please wear this sling. Please follow-up with the orthopedic team. Please follow-up with [facility] across the street: [address], [place] [address] Please return to the emergency department if you develop shortness of breath chest pain or have any other concerns. Referrals: [facility] [Provider Group] Discharge Data Discharge Date/Time-TO BE ENTERED AT DEPARTURE: 11/30/24 11:51 HPI General Date/Time Provider Initiated Documentation: 11/30/24 09:36. HPI Narrative: MDM This is an overall well-appearing normothermic and not tachycardic 79-year-old male with shortness of breath off of home oxygen now improved status post prehospital nebulization treatment. No recent trauma to suggest pneumothorax however given trauma at the end of last month will obtain chest x-ray and left shoulder x-ray. No obvious dislocation. Left hand is warm well-perfused so I am not suspicious for upper extremity DVT. Furthermore patient is not an IV drug user and has not recently had any PICC line. Soft nontender abdomen so I am not suspicious for intra-abdominal infection. No chest pain so my suspicion is low for ACS. I considered PE however the patient is not having calf pain so I did not send D-dimer. No lower extremity edema to suggest acute heart failure. No black or bloody stools to suggest GI bleed. No increased purulence of sputum nor any increased production of sputum so we will defer steroids and doxycycline at this point in time. Will send a venous blood gas to ensure patient is not markedly hypercarbic. I considered sepsis however patient does not have infectious symptoms I did not order lactate or blood cultures. His ECG is nonischemic. He does have slightly limited range of motion in his left shoulder. If x-rays are negative for any acute osseous abnormalities anticipate patient will require PCP follow-up with the possibility of physical therapy as he certainly may have ligamentous injuries. He is not on home oxygen and he reports that he does not need any refills of any of his prescriptions. 9:56 AM CBC with very mild microcytic anemia. No thrombocytopenia nor leukocytosis. 10 AM Venous blood gas lacks acidemia and hypercarbia. 10:56 AM Scapula x-ray with left scapular fracture subacute. Will provide patient with a sling. I reached out to Dr. Diaz requesting outpatient follow-up.he advised weightbearing as tolerated with a sling as needed for comfort with range of motion activities. Chest x-ray with no sign of pneumonia. I prescribed patient short course of oral opiates given fracture. Patient reported that he did not need any refills of his nebulizers. He continues to be breathing well in the emergency department. He will follow-up with [facility]. We also discussed whether or not to prescribe opiates. Patient reports he did have oxycodone at home. I initially ordered him for prepacked morphine however these were not available at the moment. He was planning on taking his previously prescribed oxycodone. 11:36 AM Patient was able to pull 2000 cc on incentive spirometry. Patient asked me to look in his right ear. He was concerned that he had an ear infection. He was concerned that he had perforated his ear. His right TM is clear with no bulging. No obvious sign of perforation. Patient is going to follow-up with [facility]. HPI This is a 79-year-old male with a history of intermittent shortness of breath presenting with increased breathlessness. The patient has been experiencing intermittent shortness of breath for the past 2 years, which necessitates the use of supplemental oxygen as needed. His most recent episode of breathlessness began last night. He reports that his oxygen saturation levels have been fluctuating between 79 and 87, as measured by his personal device. He did not utilize his oxygen supply last night due to its depletion. He was using a friend's oxygen tank. His generator ran out. The patient reports no fever, increased sputum production, or chest pain. The patient sustained fractures to 4 ribs, 4 vertebrae, and the scapula on 11/06/2024. An MRI was performed at [facility], but he did not seek emergency care. He is right-handed. He has been experiencing significant pain in his left shoulder, which he describes as severe and causing substantial discomfort. He describes the sensation in his back as haseeb to a wire brush scraping against his skin. He received lidocaine treatment for his shoulder pain. He reports that his rib pain has significantly subsided since returning home. Patient is not prescribed home oxygen. He saturating well on room air. Exam General: Well-appearing in no acute distress speaking in complete sentences. Head: Normocephalic, atraumatic. Eye: Extraocular eye movements intact. No conjunctival injection. No scleral icterus. Ear, nose, mouth, throat: Grossly normal inspection. Normal voice, handling secretions normally. Neck: Trachea midline. Cardiovascular: Well-perfused distal extremities. Regular rate and rhythm. No significant lower extremity pitting edema. Respiratory: Nonlabored respiration. Equal breath sounds bilaterally. No wheezes. No significant rhonchi. Gastrointestinal: Nondistended abdomen. Soft nontender. Musculoskeletal: Left arm with no obvious signs of trauma. Patient does have decreased range of motion in his left upper extremity. He cannot abduct his left arm at the shoulder approximately 80 degrees. He can flex his left arm at the shoulder approximately 45 degrees. He has no tenderness throughout his humerus elbow and forearm. Left hand warm well-perfused with 2+ radial pulse. Sensation and motor function intact across the radial, median, and ulnar nerve distributions. Skin: Normal for age and race, grossly normal temperature and turgor. No acute rash. Neurologic: Alert and appropriate, no apparent acute deficits. GCS 15. Psychiatric: Mood and manner are appropriate. Grooming and personal hygiene are appropriate. Related Data Home Medications ?Medication ?Instructions ?Recorded ?Confirmed albuterol sulfate 90 mcg/actuation 2 inh inhalation Q6H PRN 03/29/23 11/30/24 aerosol inhaler fluticasone fur. 200 mcg-umeclid 1 inh inhalation DAILY 03/29/23 11/30/24 62.5 mcg-vilant 25 mcg inhalat.powder (Trelegy Ellipta) albuterol sulfate 1.25 mg/3 mL 1.25 mg (3 mL) inhalation Q6H PRN 04/25/23 11/30/24 solution for nebulization shortness of breath or wheezing #75 mL gabapentin 300 mg capsule 600 mg PO BID PRN 04/25/23 11/30/24 losartan 50 mg tablet (Cozaar) 25 mg PO DAILY 04/25/23 11/30/24 omeprazole 10 mg capsule,delayed 40 mg PO DAILY 04/25/23 11/30/24 release MORPHine IR, 4 tabs/btl [MSIR, 4 15 mg PO DISPENSE 3 days 11/30/24 tabs/btl] acetaminophen 500 mg capsule 1,000 mg PO Q6H PRN 11/30/24 11/30/24 Previous Rx's ?Medication ?Instructions ?Recorded albuterol sulfate 1.25 mg/3 mL 1.25 mg (3 mL) inhalation Q6H PRN 04/25/23 solution for nebulization shortness of breath or wheezing #75 mL MORPHine IR, 4 tabs/btl [MSIR, 4 15 mg PO DISPENSE 3 days 11/30/24 tabs/btl] Allergies Allergy/AdvReac Type Severity Reaction Status Date / Time codeine AdvReac Mild Itching Verified 11/30/24 09:33 Milk Containing Products AdvReac Mild Diarrhea Verified 11/30/24 09:33 (Dairy) General AMANDEEP: 3 Medical Decision Making Quality:SDOH Health Related Social Needs: Health related social needs inadequate housing risk of homeless food insecurity transpo insecurity material hardship house/econ circumstance lonely/isolated Health related social needs details pt with mult needs PFSH All Active Problems (Updated 11/30/24 @ 10:58 by Usama Castillo MD) Breath shortness (Acute) Closed fracture of left scapula (Acute) Closed fracture of phalanx of left little finger (Acute) Fracture of fibula, distal, right, closed (Acute ~05/18/23) Persistent shortness of breath after COVID-19 (Acute) Social History Smoking/Tobacco Use Status: Never Smoking risk assessment performed?: Yes Alcohol Intake: current Alcohol Intake frequency: a few times a month Alcohol type: beer and hard liquor Drug use: Occasionally Substance use type: marijuana Housing: other Do you feel safe at home: Yes Do you feel safe in your relationship?: Yes Additional Social history: lives off grid, no money for fuel for generator
[2024-11-30 09:52] LABS: BE (Venous) 7 mmol/L (-2-3); HCO3 (Venous) 31 mmol/L (23-28); O2 Sat (Venous) 51 %; TCO2 (Venous) 29 mmol/L (24-29); pCO2 (Venous) 46 mmHg (41-51); pH (Venous) 7.44 (7.31-7.41); pO2 (Venous) 29 mmHg
[2024-11-30 09:53] LABS: Abs Immature Grans 0.02 10^3/uL (0.0-0.06); Absolute Basophil Count 0.03 10^3/uL (0.0-0.2); Absolute Eosinophil Count 0.36 10^3/uL (0.0-0.7); Absolute Lymphocyte Count 1.54 10^3/uL (1.2-3.4); Absolute Monocyte Count 0.63 10^3/uL (0.1-0.8); Absolute Neutrophil Count 3.75 10^3/uL (1.2-6.7); Basophils % 0.5 %; Eosinophils % 5.7 %; HCT 38.9 % (40.0-50.0); HGB 12.5 g/dL (13.5-17.5); Immature Grans % 0.3 %; Lymphocytes % 24.3 %; MCH 30.8 pg (27.0-33.0); MCHC 32.1 % (32.0-36.0); MCV 96 fL (80-95); MPV 8.6 fL (8.0-11.0); Neutrophils % 59.2 %; Platelet Count 360 10^3/uL (130-400); RBC 4.06 10^6/uL (4.36-5.78); RDW 15.3 % (11.8-14.1); RDW-SD 54.6 fL; WBC 6.33 10^3/uL (4.4-10.8)
[2024-11-30 10:12] LABS: Anion Gap 9.4 mmol/L (3-11); BUN 11 mg/dL (7-18); CO2 29.6 mmol/L (21.0-32.0); CREATININE 1.2 mg/dL (0.70-1.30); Calcium 9.2 mg/dL (8.5-10.1); Chloride 100 mmol/L (98-107); Glucose 120 mg/dL (74-106); Potassium 4.2 mmol/L (3.5-5.1); Sodium 139 mmol/L (136-145)
--- NOTE | 2024-11-30 10:36 | DI.RAD_ITS ---
Exam(s) XR CHEST 2V PA LATERAL EXAM: XR CHEST 2V PA LATERAL CLINICAL HISTORY: SOB TECHNIQUE: 2D digital imaging was performed. Two views. COMPARISON: CT CT NECK CHEST WO from 07/11/2024 CR XR PORTABLE CHEST AP from 10/13/2024 FINDINGS: HEART: Normal size. Aorta: mildly tortuous. PULMONARY VASCULATURE: Normal. MEDIASTINUM: Unremarkable. LUNGS: Bibasilar atelectasis. PLEURAL SPACE: No pleural effusion or pneumothorax. Bone: Resection of left 1st rib. No thoracic compression fractures. SOFT TISSUES: Surgical clips over the upper lobes. IMPRESSION: Bibasilar atelectasis. DATA REPOSITORY: RADIATION DOSE DELIVERED:
--- NOTE | 2024-11-30 10:36 | DI.RAD_ITS ---
Exam(s) XR SHOULDER LT COMPLETE 2+V XR SCAPULA LT EXAM: XR SHOULDER LT COMPLETE 2+V CLINICAL HISTORY: L shoulder pain. TECHNIQUE: 2D digital imaging was performed. Three views. COMPARISON: CT CT NECK CHEST WO from 07/11/2024 CR XR PORTABLE CHEST AP from 10/13/2024 CR XR SCAPULA LT from 11/30/2024 CR XR CHEST 2V PA LATERAL from 11/30/2024 FINDINGS: BONES: There is a mildly displaced fracture extending mainly transversely through the blade of the scapula, inferior to the level of the glenoid. The fracture appears subacute. No fracture is visible involving the glenoid. The proximal humerus, acromion and clavicle appear intact. There has been a previous resection of the left 1st rib. Surgical clips are noted over the left upper lobe. No rib fractures are identified. No bony destructive lesion is seen. JOINTS: No dislocation present. Degenerative changes at the AC joint. Glenohumeral joint space is maintained. SOFT TISSUE: Normal. IMPRESSION: Subacute fracture of the blade of the scapula, inferior to the glenoid. DATA REPOSITORY: RADIATION DOSE DELIVERED:
== END 2024-11-30 11:51 | disposition home or self-care (01) ==
PROVIDERS: Emergency Provider Emergency Medicine; PCP Physician Assistant
DX: R06.02 Shortness of breath; S42.112A Displaced fracture of body of scapula, left shoulder, initial encounter for closed fracture; Z59.10 Inadequate housing, unspecified; Z59.41 Food insecurity; Z59.811 Housing instability, housed, with risk of homelessness; Z59.82 Transportation insecurity; Z59.89 Other problems related to housing and economic circumstances; X58.XXXA Exposure to other specified factors, initial encounter
CPT/HCPCS: 99284 ×2; 36415; 80048; 82805; 93005; 71046; 73010; 73030; 85025; 93010

== ENCOUNTER 2025-01-19 06:23 | Inpatient (IN) | payer OTHER, SELFPAY ==
[2025-01-19] VITALS (94 sets, daily range): BP systolic 150–197; BP diastolic 70–110; PULSE 45–90; RESP 10–30; TEMP 36.4–36.9; O2SAT 90–98
--- NOTE | 2025-01-19 06:15 | RT.EKG_ITS ---
APPROVED REPORT Exam: Resting ECG Reason for Exam: SOB Patient Location: E HR:70 bpm ECG Measurements Heart Rate 70 AXIS WI 227 P -46 QRSd 100 QRS -34 QT 407 T 48 QTc 441 Conclusion Sinus rhythm, rate 70 1st degree block, WI interval 227ms No other interval abnormalities No STEMI Compared to priors, PVCs have resolved
--- NOTE | 2025-01-19 06:52 | W.ED.GENAD ---
Discharge Plan Disposition Patient Disposition: Admit to [facility] Condition: Stable Discharge Details Clinical Impression: Symptomatic sinus bradycardia, RAD (reactive airway disease) with wheezing Primary Care Provider: Ya Boykin ED Provider: Mala Gee Home Meds and New Rx's Prescriptions: No Action cetirizine [All Day Allergy (cetirizine)] 10 mg tablet 10 mg PO DAILY PRN carboxymethylcellulose sodium 0.5 % drops 1 drp ophthalmic (eye) QID diclofenac sodium [Arthritis Pain (diclofenac)] 1 % gel 2 g topical QID Rx Instructions: apply to single elbow, wrist or hand; for hand includes palm/fingers/back of hand escitalopram oxalate 5 mg tablet 10 mg PO DAILY gabapentin 600 mg tablet 600 mg PO TID lactase 9,000 unit tablet 9,000 unit PO QAC PRN Rx Instructions: administer with first bite of dairy food hydroxyzine HCl 25 mg tablet 25 mg PO TID PRN indomethacin 75 mg capsule, extended release 75 mg PO BID trazodone 50 mg tablet 50 mg PO QHS PRN mometasone 220 mcg/ actuation (60) aerosol powdr breath activated 1 inh inhalation QPM olodaterol 2.5 mcg/actuation mist 2 inh inhalation DAILY omeprazole 10 mg capsule,delayed release(DR/EC) 40 mg PO DAILY losartan [Cozaar] 50 mg tablet 25 mg PO DAILY Patient Comments: states hes now taking 75mg per [facility] albuterol sulfate 1.25 mg/3 mL solution for nebulization 1.25 mg inhalation Q6H PRN (Reason: shortness of breath or wheezing) Qty: 75 0RF Patient Comments: unable to use- no electricity and ran out of gas for his generator acetaminophen 500 mg capsule 1,000 mg PO Q6H PRN Trelegy Ellipta 200-62.5-25 mcg blister with device 1 inh inhalation DAILY albuterol sulfate 90 mcg/actuation HFA aerosol inhaler 2 inh inhalation Q6H PRN HPI General Mode of arrival: EMS. Date/Time Provider Initiated Documentation: 01/19/25 06:42. Limitations to Documentation: no limitations. Information obtained by: patient and old records reviewed. HPI Narrative: This is a 79-year-old male patient with a past medical history significant for COPD/persistent shortness of breath after COVID-19, presenting for evaluation of shortness of breath and cough. The patient reports that he has had coughing for the last few days and when he has a spell he starts to feel very dizzy and gets [id number] all over his face. He states that his sputum has not changed in color but has been increased in volume. He has had a few episodes of dry heaving in the context of coughing fits. He reports that he has some chronic low back pain but otherwise denies new pain, and specifically denies chest pain. He has not had a fever, and denies runny or stuffy nose. No nausea or vomiting and he has been eating and drinking typically for him. Does have occasional diarrhea but this has been present for a very long time. The patient reports that he has access to oxygen at home as needed, that his generator recently stopped working and so he has not had power to use that or his nebulizer. He does have access to his albuterol inhaler which he has been using. States that he has a plan to get his generator going, but has had some difficulty finding a ride. Related Data Home Medications ?Medication ?Instructions ?Recorded ?Confirmed albuterol sulfate 90 mcg/actuation 2 inh inhalation Q6H PRN 03/29/23 01/19/25 aerosol inhaler fluticasone fur. 200 mcg-umeclid 1 inh inhalation DAILY 03/29/23 01/19/25 62.5 mcg-vilant 25 mcg inhalat.powder (Trelegy Ellipta) albuterol sulfate 1.25 mg/3 mL 1.25 mg (3 mL) inhalation Q6H PRN 04/25/23 01/19/25 solution for nebulization shortness of breath or wheezing #75 mL losartan 50 mg tablet (Cozaar) 25 mg PO DAILY 04/25/23 01/19/25 omeprazole 10 mg capsule,delayed 40 mg PO DAILY 04/25/23 01/19/25 release acetaminophen 500 mg capsule 1,000 mg PO Q6H PRN 11/30/24 01/19/25 carboxymethylcellulose sodium 0.5 1 drp ophthalmic (eye) QID 01/01/25 01/19/25 % eye drops cetirizine 10 mg tablet (All Day 10 mg PO DAILY PRN 01/01/25 01/19/25 Allergy (cetirizine)) diclofenac sodium 1 % topical gel 2 g topical QID 01/01/25 01/19/25 (Arthritis Pain (diclofenac)) escitalopram oxalate 5 mg tablet 10 mg PO DAILY 01/01/25 01/19/25 gabapentin 600 mg tablet 600 mg PO TID 01/01/25 01/19/25 hydroxyzine HCl 25 mg tablet 25 mg PO TID PRN 01/01/25 01/19/25 indomethacin 75 mg 75 mg PO BID 01/01/25 01/19/25 capsule,extended release lactase 9,000 unit tablet 9,000 unit PO QAC PRN 01/01/25 01/19/25 mometasone 220 mcg/actuation(60 1 inh inhalation QPM 01/01/25 01/19/25 doses) breath activated powder inhaler olodaterol 2.5 mcg/actuation mist 2 inh inhalation DAILY 01/01/25 01/19/25 for inhalation trazodone 50 mg tablet 50 mg PO QHS PRN 01/01/25 01/19/25 Previous Rx's ?Medication ?Instructions ?Recorded albuterol sulfate 1.25 mg/3 mL 1.25 mg (3 mL) inhalation Q6H PRN 04/25/23 solution for nebulization shortness of breath or wheezing #75 mL Allergies Allergy/AdvReac Type Severity Reaction Status Date / Time adhesive tape Allergy Unknown Verified 01/01/25 12:03 aspirin Allergy Unknown Verified 01/01/25 12:03 Iodinated Contrast Media Allergy Unknown Verified 01/01/25 12:03 sertraline Allergy Unknown Verified 01/01/25 12:03 silicone Allergy Unknown Verified 01/01/25 12:03 codeine AdvReac Mild Itching Verified 11/30/24 09:33 Milk Containing Products AdvReac Mild Diarrhea Verified 11/30/24 09:33 (Dairy) General Stated Complaint: GenMedical AMANDEEP: 3 Exam Narrative Exam Narrative: Gen: awake and alert, in no apparent distress. Appears well nourished. HEENT: PERRL, EOMs full and without nystagmus. External ears and nose normal, mucous membranes moist. Neck: Supple, full range of motion, no observable masses Lungs: No increased work of breathing, lung sounds with diffuse expiratory wheezes and some crackles right greater than left lung valladares CV: Heart with regular rate and rhythm, no murmurs auscultated. Strong and symmetrical radial pulses. Abdomen: Soft, nondistended, non-tender to palpation. No rigidity, rebound tenderness, or guarding. MSK: No joint swelling, no redness. Full ROM without limitation, no external traumatic findings. No peripheral edema or unilateral calf tenderness or swelling Skin: No rashes or lesions to visualized skin. Normal color, warm, and dry. Neuro: Cranial nerves II-XII intact and symmetrical bilaterally. 5/5 strength in all muscle groups x4 extremities. No sensory deficits. Ambulates with steady gait. Psych: Appropriate for situation. Course Vital Signs Vital signs: Vital Signs Temperature 36.4 C L 01/19/25 06:24 Pulse 76 01/19/25 06:24 Respiratory Rate 18 01/19/25 06:24 Blood Pressure 176/99 H 01/19/25 06:24 Pulse Oximetry 94 01/19/25 06:24 Temperature 36.5 C 01/19/25 06:33 Temperature Source Temporal Artery Scan 01/19/25 06:24 Pulse 72 01/19/25 06:33 Respiratory Rate 23 01/19/25 06:33 Respiratory Effort Short of Breath 01/19/25 06:33 Respiratory Depth Normal 01/19/25 06:33 Respiratory Pattern Normal 01/19/25 06:33 Blood Pressure 176/99 H 01/19/25 06:33 Blood Pressure Position Sitting 01/19/25 06:33 Pulse Oximetry 94 01/19/25 06:33 Oxygen Delivery Method Room Air 01/19/25 06:33 Oxygen Flow Rate 0 01/19/25 06:24 Pain Level 0 01/19/25 06:33 Medical Decision Making This is a 79-year-old male patient presenting for evaluation of shortness of breath, cough, and dizziness. My differential includes but is not limited to reactive airway disease exacerbation, bronchitis, pneumonia, URI. Certainly considered arrhythmia, ACS, metabolic electrolyte derangement, dehydration, kidney and liver disease, anemia. Given the wheezing on exam we will provide the patient with a duo nebulizer treatment and a dose of prednisone. I am reassured given his normal SpO2 on room air and his lack of tachycardia. We will obtain an x-ray of the chest, and labs to include CBC, CMP, magnesium, troponin, and a Fluvid swab. I did review the patient's EKG, which shows a sinus rhythm with a rate of 70, first-degree heart block, and no evidence of acute ischemic changes. Compared to priors, I note no significant changes. - I independently interpreted the laboratory studies, which show no significant leukocytosis, new or worsening anemia, or thrombocytopenia. The chemistry panel is without evidence of electrolyte abnormality, kidney dysfunction, or liver injury. Initial troponin is negative. I observed the patient on telemetry, and he was noted to have frequent episodes where his rate dipped down into the 30s, sinus bradycardia on both telemetry and repeat EKG. The patient does report dizziness during these events. These events are not preceded by coughing spells. Denies chest pain. I independently interpreted the patient's chest x-ray, I do note some opacities, largely in the right base, as well as some right hilar fullness, appear chronic per radiology. Delta troponin is without interval increase suggestive of active cardiac ischemia. Given the significant bradycardia and frequency of the events I did reach out to [facility] cardiology/EP. They state that the patient would meet criteria for placement of a pacemaker device. Unfortunately, they are not accepting patients until tomorrow, but the patient has been accepted to [facility] under Dr. Kumari. I reached out to our hospitalist to discuss admission on telemetry while awaiting bed availability at [facility]. They have graciously accepted this patient to their service. The patient was transferred to their care without incident and remained hemodynamically appropriate while under my care. Mala Gee MD Quality:SDOH Health Related Social Needs: Health related social needs material hardship house/econ circumstance Health related social needs details issues w/ money for generator fuel [facility] All Active Problems (Updated 01/19/25 @ 10:30 by Mala Gee MD) RAD (reactive airway disease) with wheezing (Acute) Symptomatic sinus bradycardia (Acute) Closed fracture of phalanx of left little finger (Acute) Fracture of fibula, distal, right, closed (Acute ~05/18/23) Persistent shortness of breath after COVID-19 (Acute) Social History Smoking/Tobacco Use Status: Never Smoking risk assessment performed?: Yes Alcohol Intake: current Alcohol Intake frequency: a few times a month Alcohol type: beer and hard liquor Drug use: Occasionally Substance use type: marijuana Housing: other Do you feel safe at home: Yes Do you feel safe in your relationship?: Yes Additional Social history: lives off grid, no money for fuel for generator PAWSS Have you Been Recently Intoxicated or Drunk Within the Last 30 days?: No Have you Ever Experienced Previous Episodes of Alcohol Withdrawal?: No Have you ever Experienced Withdrawal Seizures?: No Have you ever Experienced Delirium Tremens(DT)s?: No Have you ever undergone Alcohol Rehabilitation Treatment (i.e, inpt ot outpatient treatment programs)?: No Have you ever Experienced Blackouts?: No Have you ever Combined Alcohol with other Downers within the last 90 days?: No Have you ever Combined Alcohol with any other Substance of Abuse during the last 90 days?: No Positive Blood Alcohol level on Presentation? [PCS.BAL]: No Evidence of Increased Autonomic Activity (i.e. HR>120, tremor, sweating, agitation, nausea)?: No Result: 0
[2025-01-19] MEDS: Albuterol/Ipratropium 3 ML UPD VIAL UPD ×3 (07:09→16:02)
[2025-01-19] MEDS: predniSONE 20 MG TAB 60 MG PO (07:12)
[2025-01-19 07:21] LABS: Abs Immature Grans 0.03 10^3/uL (0.0-0.06); HCT 38.9 % (40.0-50.0); HGB 12.7 g/dL (13.5-17.5); Immature Grans % 0.4 %; MCH 30.7 pg (27.0-33.0); MCHC 32.6 % (32.0-36.0); MCV 94 fL (80-95); MPV 9.0 fL (8.0-11.0); Platelet Count 251 10^3/uL (130-400); RBC 4.14 10^6/uL (4.36-5.78); RDW 14.3 % (11.8-14.1); RDW-SD 49.1 fL; WBC 6.85 10^3/uL (4.4-10.8)
--- NOTE | 2025-01-19 07:30 | RT.EKG_ITS ---
APPROVED REPORT Exam: Resting ECG Reason for Exam: bradycardia, dizziness Patient Location: E HR:42 bpm ECG Measurements Heart Rate 42 AXIS KS 117 P 48 QRSd 98 QRS -33 QT 436 T 41 QTc 326 Conclusion Sinus bradycardia, rate 42 No interval abnormalities No STEMI Compared to priors, rate has decreased
[2025-01-19 07:45] LABS: ALT 21 U/L (16-63); AST 23 U/L (15-37); Albumin 3.5 g/dL (3.4-5.0); Alkaline Phosphatase 73 U/L (46-116); Anion Gap 7.0 mmol/L (3-11); BUN 24 mg/dL (7-18); Bilirubin, Total 0.4 mg/dL (0.2-1.0); CO2 27.0 mmol/L (21.0-32.0); Calcium 9.0 mg/dL (8.5-10.1); Chloride 106 mmol/L (98-107); Estimated GFR 87.42 (mL/min/1.73m2); Glucose 108 mg/dL (74-106); Magnesium 2.0 mg/dL (1.8-2.4); Potassium 4.3 mmol/L (3.5-5.1); Sodium 140 mmol/L (136-145); Total Protein 7.4 g/dL (6.4-8.2); Troponin I 32 ng/L (<or=76)
--- NOTE | 2025-01-19 08:00 | DI.RAD_ITS ---
Exam(s) XR PORTABLE CHEST AP EXAM: XR PORTABLE CHEST AP CLINICAL HISTORY: Cough, SOB TECHNIQUE: 2D digital imaging was performed. COMPARISON: No exams were available for comparison FINDINGS: Exam is limited by overlying monitoring leads and fibrillator pads. LUNGS: No focal infiltrate or pulmonary edema is visible. Mild underlying chronic interstitial changes. No pleural abnormality seen. HEART: Normal size. AORTA: Normal diameter. BONES: Unremarkable for age. Soft tissues: Surgical clips noted overlying the lung apices bilaterally. IMPRESSION: No acute findings. DATA REPOSITORY: RADIATION DOSE DELIVERED:
[2025-01-19 08:48] LABS: Troponin I 38 ng/L (<or=76)
--- NOTE | 2025-01-19 10:13 | DI.VRAD_ITS ---
PROCEDURE INFORMATION: Exam: XR Chest Exam date and time: 01/19/2025 7:58 AM Age: 79 years old Clinical indication: Shortness of breath TECHNIQUE: Imaging protocol: Radiologic exam of the chest. Views: 1 view. COMPARISON: CR XR CHEST 2V PA LATERAL 11/30/2024 10:04 AM FINDINGS: Tubes, catheters and devices: Defibrillator pad(s) projects over the heart shadow. Lungs: Prominence of the central pulmonary vasculature. Decreasing subsegmental atelectasis at the right lung base. No focal infiltrates. Vascular markings indistinct in the perihilar regions. Pleural spaces: Trace blunting of the costophrenic sulci. No pneumothorax. Heart/Mediastinum: Unremarkable. No cardiomegaly. Bones/joints: Unremarkable. Other findings: Critical portable IMPRESSION: 1. Trace bilateral pleural effusions. 2. Mild interstitial edema. Dictated and Authenticated by: Marisa Alvares MD. Orderin [facility]. Mateo Medeiros MD
[2025-01-19 10:39] LABS: Troponin I 51 ng/L (<or=76)
[2025-01-19] MEDS: Acetaminophen 500 MG TAB 1000 MG PO (10:53)
--- NOTE | 2025-01-19 12:23 | W.PM.HP.N ---
Date of service: 01/19/25 Time of Service: 12:00 Assessment and Plan Assessment and plan (1) Symptomatic sinus bradycardia: Status: Acute Assessment and plan: New onset of sinus bradycardia with noted lack of improvement after asthma treatment Patient has been accepted at [facility] [place] [place] by type proof reproducer Dr Meyers for likely pacer placement Jan 20 Monitor overnight in ICU with transcutaneous pacer pads in place VTE risk assessed using Fawad score, lower risk. Will defer chemoprophylaxis, also note pending procedure. (2) RAD (reactive airway disease) with wheezing: Status: Acute Assessment and plan: Continue duonebs (3) Benign essential hypertension: Status: Acute Assessment and plan: Continue home regimen (4) Major depression, recurrent, chronic: Status: Acute Assessment and plan: Continue home regimen (5) Arthritis: Status: Acute Assessment and plan: Unclear diagnosis for indomethacin, will continue History of Present Illness History of Present Illness Chief Complaint: SOB with cough Narrative: Mat Tineo is a 79 year old man presenting January 19 with worsening SOB and cough for a few days. Cough has been so severe that he gets dizzy and his face turns numb, and he has had dry heaves after coughing fits. He has been treated for asthma/COPD in the past and has home O2 and a nebulizer which have not been working as his generator is not working. He has been using his inhaler. He lives off the [facility] and has local family. He normally gets care at the [facility]. PMH includes asthma, HTN, GERD, depression, chronic lower back pain. Arthritis of unknown type on indomethacin In the ED he was found to have elevated blood pressures to 190's / 100's with runs of low heart rates in the 30's. EKG confirmed bradycardia in the 40's. CXR unremarkable. He was given duonebs and prednisone for reactive airway. Labs unremarkable. PFSH All Active Problems (Updated 01/19/25 @ 19:11 by Lukas Dupont MD) Arthritis (Acute) Major depression, recurrent, chronic (Acute) Benign essential hypertension (Acute) RAD (reactive airway disease) with wheezing (Acute) Symptomatic sinus bradycardia (Acute) Closed fracture of phalanx of left little finger (Acute) Fracture of fibula, distal, right, closed (Acute ~05/18/23) Persistent shortness of breath after COVID-19 (Acute) Social History Smoking/Tobacco Use Status: Never Smoking risk assessment performed?: Yes Alcohol Intake: current Alcohol Intake frequency: a few times a month Alcohol type: beer and hard liquor Drug use: Occasionally Substance use type: marijuana Housing: other Do you feel safe at home: Yes Do you feel safe in your relationship?: Yes Additional Social history: lives off grid, no money for fuel for generator Meds Allergies and Home Medications Allergies Allergy/AdvReac Type Severity Reaction Status Date / Time adhesive tape Allergy Unknown Verified 01/01/25 12:03 aspirin Allergy Unknown Verified 01/01/25 12:03 Iodinated Contrast Media Allergy Unknown Verified 01/01/25 12:03 sertraline Allergy Unknown Verified 01/01/25 12:03 silicone Allergy Unknown Verified 01/01/25 12:03 codeine AdvReac Mild Itching Verified 11/30/24 09:33 Milk Containing Products AdvReac Mild Diarrhea Verified 11/30/24 09:33 (Dairy) Home Medications ?Medication ?Instructions ?Recorded ?Confirmed ?Type albuterol sulfate 90 mcg/actuation 2 inh inhalation Q6H PRN 03/29/23 01/19/25 History aerosol inhaler fluticasone fur. 200 mcg-umeclid 1 inh inhalation DAILY 03/29/23 01/19/25 History 62.5 mcg-vilant 25 mcg inhalat.powder (Trelegy Ellipta) albuterol sulfate 1.25 mg/3 mL 1.25 mg (3 mL) inhalation Q6H PRN 04/25/23 01/19/25 Rx solution for nebulization shortness of breath or wheezing #75 mL losartan 50 mg tablet (Cozaar) 25 mg PO DAILY 04/25/23 01/19/25 History omeprazole 10 mg capsule,delayed 40 mg PO DAILY 04/25/23 01/19/25 History release acetaminophen 500 mg capsule 1,000 mg PO Q6H PRN 11/30/24 01/19/25 History carboxymethylcellulose sodium 0.5 1 drp ophthalmic (eye) QID 01/01/25 01/19/25 History % eye drops cetirizine 10 mg tablet (All Day 10 mg PO DAILY PRN 01/01/25 01/19/25 History Allergy (cetirizine)) diclofenac sodium 1 % topical gel 2 g topical QID 01/01/25 01/19/25 History (Arthritis Pain (diclofenac)) escitalopram oxalate 5 mg tablet 10 mg PO DAILY 01/01/25 01/19/25 History gabapentin 600 mg tablet 600 mg PO TID 01/01/25 01/19/25 History hydroxyzine HCl 25 mg tablet 25 mg PO TID PRN 01/01/25 01/19/25 History indomethacin 75 mg 75 mg PO BID 01/01/25 01/19/25 History capsule,extended release lactase 9,000 unit tablet 9,000 unit PO QAC PRN 01/01/25 01/19/25 History mometasone 220 mcg/actuation(60 1 inh inhalation QPM 01/01/25 01/19/25 History doses) breath activated powder inhaler olodaterol 2.5 mcg/actuation mist 2 inh inhalation DAILY 01/01/25 01/19/25 History for inhalation trazodone 50 mg tablet 50 mg PO QHS PRN 01/01/25 01/19/25 History Exam Narrative Exam Narrative: General: This is a pleasant, elderly man in no acute distress HEENT: Normocephalic, atraumatic CV: RRR no MRG, no bradycardia at time of exam Resp: Bibasilar soft rales with expiratory wheeze, no increased work of breathing on room air Abd: NTND MSK: Voluntary motion x4 Neuro: Awake, alert, no focal deficits. Ambulatory. Results Labs 01/19/25 07:05 01/19/25 07:05 Labs: Laboratory Results - last 24 hr 01/19/25 01/19/25 01/19/25 07:05 08:09 10:05 WBC 6.85 RBC 4.14 L Hgb 12.7 L Hct 38.9 L MCV 94 MCH 30.7 MCHC 32.6 RDW 14.3 H Plt Count 251 MPV 9.0 Immature Gran % 0.4 Neutrophils % 73.2 Lymphocytes % 15.8 Monocytes % 7.6 Eosinophils % 2.3 Basophils % 0.7 Nucleated RBC % 0.0 Absolute Neutrophils 5.01 Absolute Lymphocytes 1.08 L Absolute Monocytes 0.52 Absolute Eosinophils 0.16 Absolute Basophils 0.05 Sodium 140 Potassium 4.3 Chloride 106 Carbon Dioxide 27.0 Anion Gap 7.0 BUN 24 H Creatinine 0.9 Est GFR (CKD-EPI 2020) 87.42 Glucose 108 H Calcium 9.0 Magnesium 2.0 Total Bilirubin 0.4 AST 23 ALT 21 Alkaline Phosphatase 73 Troponin I 32 38 51 Total Protein 7.4 Albumin 3.5 Last Vital Signs Temp 36.5 C 01/19/25 06:33 Pulse 71 01/19/25 08:46 Resp 22 01/19/25 08:46 BP 175/71 H 01/19/25 08:46 Pulse Ox 94 01/19/25 08:46 PAWSS Have you Been Recently Intoxicated or Drunk Within the Last 30 days?: No Have you Ever Experienced Previous Episodes of Alcohol Withdrawal?: No Have you ever Experienced Withdrawal Seizures?: No Have you ever Experienced Delirium Tremens(DT)s?: No Have you ever undergone Alcohol Rehabilitation Treatment (i.e, inpt ot outpatient treatment programs)?: No Have you ever Experienced Blackouts?: No Have you ever Combined Alcohol with other Downers within the last 90 days?: No Have you ever Combined Alcohol with any other Substance of Abuse during the last 90 days?: No Positive Blood Alcohol level on Presentation? [PCS.BAL]: No Evidence of Increased Autonomic Activity (i.e. HR>120, tremor, sweating, agitation, nausea)?: No Result: 0 Time Spent Time spent with Patient: 40-54 minutes Time was spent: preparing to see the patient(eg.review tests), obtaining and/or reviewing separately otained hiistory, ordering medications,tests, procedures, referring, communicating with other health care information associate, indepentently interpreting results, counseling the patient and care coordination
--- NOTE | 2025-01-19 12:54 | W.PC.ACHO ---
Registration Status: REG ER Primary Language: Preferred Language: ED Information & Data Chief Complaint GenMedical 01/19/25 06:56 Triage Note BIBEMS from home s/p 01/19/25 06:24 episodes of nausea followed by 'pins and needles all over my face'. Started yesterday worsening this am around 0200. Got dizzy standing up and heading to stretcher w/ EMS. COPDer w/ PRN O2 and nebs at home but generator issues have made it difficult to have power for those items. Duoneb administered by EMS enroute Most Recent Vital Signs Temperature 36.5 C 01/19/25 06:33 Temperature Source Temporal Artery Scan 01/19/25 06:24 Pulse 71 01/19/25 08:46 Pulse 71 01/19/25 08:46 Respiratory Rate 22 01/19/25 08:46 Respiratory Effort Short of Breath 01/19/25 06:33 Respiratory Depth Normal 01/19/25 06:33 Respiratory Pattern Normal 01/19/25 06:33 Blood Pressure 175/71 H 01/19/25 08:46 Blood Pressure Mean 112 01/19/25 08:46 Blood Pressure Position Sitting 01/19/25 06:33 Pulse Oximetry 94 01/19/25 08:46 Oxygen Delivery Method Room Air 01/19/25 07:55 Oxygen Flow Rate 0 01/19/25 07:55 Pain Level 0 01/19/25 06:33 Allergies adhesive tape Allergy (Verified 01/01/25 12:03) Unknown aspirin Allergy (Verified 01/01/25 12:03) Unknown Iodinated Contrast Media Allergy (Verified 01/01/25 12:03) Unknown sertraline Allergy (Verified 01/01/25 12:03) Unknown silicone Allergy (Verified 01/01/25 12:03) Unknown codeine Adverse Reaction (Mild, Verified 11/30/24 09:33) Itching Milk Containing Products (Dairy) Adverse Reaction (Mild, Verified 11/30/24 09:33) Diarrhea Precautions Isolation Standard precaution 01/19/25 06:33 IV IV Catheter Type [Left Saline Lock Antecubital] IV Catheter Type [Right Saline Lock Antecubital] IV Catheter Gauge [Left 18 Antecubital] IV Catheter Gauge [Right 20 Antecubital] Diet Orders Category Date Time Status Heart Healthy Eating [DIET] Nutrition 01/19/25 Lunch Active Diagnostics 01/19/25 01/19/2525 Range/Units 10:05 08:09 07:05 WBC 6.85 (4.4-10.8) 10^3/uL RBC 4.14 L (4.36-5.78) 10^6/uL Hgb 12.7 L (13.5-17.5) g/dL Hct 38.9 L (40.0-50.0) % MCV 94 (80-95) fL MCH 30.7 (27.0-33.0) pg MCHC 32.6 (32.0-36.0) % RDW 14.3 H (11.8-14.1) % Plt Count 251 (130-400) 10^3/uL MPV 9.0 (8.0-11.0) fL Immature Gran % 0.4 % Neutrophils % 73.2 % Lymphocytes % 15.8 % Monocytes % 7.6 % Eosinophils % 2.3 % Basophils % 0.7 % Nucleated RBC % 0.0 (0.0-0.3) % Absolute Neutrophils 5.01 (1.2-6.7) 10^3/uL Absolute Lymphocytes 1.08 L (1.2-3.4) 10^3/uL Absolute Monocytes 0.52 (0.1-0.8) 10^3/uL Absolute Eosinophils 0.16 (0.0-0.7) 10^3/uL Absolute Basophils 0.05 (0.0-0.2) 10^3/uL Sodium 140 (136-145) mmol/L Potassium 4.3 (3.5-5.1) mmol/L Chloride 106 (98-107) mmol/L Carbon Dioxide 27.0 (21.0-32.0) mmol/L Anion Gap 7.0 (3-11) mmol/L BUN 24 H (7-18) mg/dL Creatinine 0.9 (0.70-1.30) mg/dL Est GFR (CKD-EPI 2020) 87.42 (mL/min/1.73m2) Glucose 108 H (74-106) mg/dL Calcium 9.0 (8.5-10.1) mg/dL Magnesium 2.0 (1.8-2.4) mg/dL Total Bilirubin 0.4 (0.2-1.0) mg/dL AST 23 (15-37) U/L ALT 21 (16-63) U/L Alkaline Phosphatase 73 (46-116) U/L Troponin I 51 38 32 (<or=76) ng/L Total Protein 7.4 (6.4-8.2) g/dL Albumin 3.5 (3.4-5.0) g/dL Intake and Output - 24 Hour Total 01/19/25 06:10 thru 01/19/25 09:26 Intake Total 20 Balance 20 Weight 77.111 kg Intake: IV 20 Falls Risk Assessment History of Falls No History 01/19/25 06:33 Contributing Factors No Factors 01/19/25 06:33 Ambulatory Aids Independent 01/19/25 06:33 Tubes/Lines None 01/19/25 06:33 Gait Evaluation No gait disturbance 01/19/25 06:33 Cognition No cognitive impairment 01/19/25 06:33 Fall Total Score 0 01/19/25 06:33 Level of Risk Standard/Low Risk 01/19/25 06:33 v v v v v v v v v Sending and/or Receiving Nurses: Please use comment section below to note any information pertinent to the patient hand-off not included above. Information / Comments: Lives off grid. Farms on own. Episodes of symptomatic bradycardia. Needs Pacer. Accepted at [facility]. No witnessed episodes of bradycardia by RN since 10 am. HR in the 70's primarily in ER. BP 177/96, 167/88, HR in 70s. Happens when he stands. Heart sounds normal. No SOB since 10 am. Lungs sound clear. Peeing independent in urinal. Report received from: Pipe Dave RN
[2025-01-19] MEDS: Gabapentin 600 MG TAB PO ×2 (13:27→20:30)
[2025-01-19] MEDS: Losartan 50 MG TAB PO (14:27)
[2025-01-19] MEDS: Diclofenac 1% Gel 100 GM TUBE TP ×2 (14:28→20:34)
--- NOTE | 2025-01-19 14:46 | PHA.REVIEW2 ---
Pharmacy Admission Review Admission Clinical Review Admission Pharmacy Review: adhesive tape Allergy (Verified 01/01/25 12:03) Unknown aspirin Allergy (Verified 01/01/25 12:03) Unknown Iodinated Contrast Media Allergy (Verified 01/01/25 12:03) Unknown sertraline Allergy (Verified 01/01/25 12:03) Unknown silicone Allergy (Verified 01/01/25 12:03) Unknown codeine Adverse Reaction (Mild, Verified 11/30/24 09:33) Itching Milk Containing Products (Dairy) Adverse Reaction (Mild, Verified 11/30/24 09:33) Diarrhea Resuscitation Status Full Code Height 5 ft 9 in Weight 79.6 kg Comments Comments/Follow Ups: Follow up on DVT prophylaxis Pharmacy Admission Review Renal Dosing Renal Dosing: BUN 24 mg/dL (7-18) H 01/19/25 07:05 Creatinine 0.9 mg/dL (0.70-1.30) 01/19/25 07:05 Medications needing adjustments: Reviewed (CrCl 68.5 mL/min) List of meds needing interventions: Current medications are okay Anticoagulation Anticoagulation: Hgb 12.7 g/dL (13.5-17.5) L 01/19/25 07:05 Hct 38.9 % (40.0-50.0) L 01/19/25 07:05 Plt Count 251 10^3/uL (130-400) 01/19/25 07:05 Creatinine 0.9 mg/dL (0.70-1.30) 01/19/25 07:05 DVT Prophylaxis: Intervened (none at this time, reached out to provider -waiting to hear back) Relevant Labs Relevant Labs: Sodium 140 mmol/L (136-145) 01/19/25 07:05 Potassium 4.3 mmol/L (3.5-5.1) 01/19/25 07:05 Chloride 106 mmol/L (98-107) 01/19/25 07:05 Magnesium 2.0 mg/dL (1.8-2.4) 01/19/25 07:05 Electrolytes, C-Reactive P, ESR: Reviewed Cardiac Review Cardiac Review: Troponin I 51 ng/L (<or=76) 01/19/25 10:05 Blood Pressure 166/86 1251 Blood Pressure 177/96 0945 Blood Pressure 197/110 0931 Blood Pressure 175/71 0846 Blood Pressure 172/84 0831 Blood Pressure 177/87 0815 Blood Pressure 172/95 0801 Blood Pressure 168/70 0746 Blood Pressure 172/93 0731 Blood Pressure 176/99 0633 Blood Pressure 176/99 0624 BP, HR, EF%: Reviewed (HR WNL) List meds needing interventions: Has order for losartan 75mg daily QTc Review QTc: Reviewed (326 from 01/19/25) IV to PO Switch IV Medications: Reviewed Home Meds Home Med List reviewed: Intervened Relevent Home Meds Not ordered & why?: carboxymethylcellulose eye drops, cetirizine (PRN), Trelegy (substituted with Symbicort + Spiriva per pharmacy protocol), hydroxyzine (PRN), lactase (PRN), Asmanex and olodaterol (most likely not using - has Trelegy also on home med list?) Current Meds Current Medication Order Review: Reviewed Comments Comments/Follow Ups: Follow up on DVT prophylaxis
[2025-01-19] MEDS: Acetaminophen 325 MG TAB 650 MG PO (18:21)
--- NOTE | 2025-01-19 20:09 | DSE_ITS ---
Date of service: 01/19/25 Time of Service: 20:09 DS: Diagnosis Discharge Diagnosis (1) Symptomatic sinus bradycardia: Status: Acute (2) RAD (reactive airway disease) with wheezing: Status: Acute (3) Benign essential hypertension: Status: Acute (4) Major depression, recurrent, chronic: Status: Acute (5) Arthritis: Status: Acute Discharge Plan Disposition Patient Disposition: Transfer-Acute Inpatient Care Specific Acute Inpt Facility: [facility] Condition: Fair Discharge Details Reason For Visit: Bradycardia Admit Date/Time: 01/19/25 12:16 Admit Provider: Lukas Dupont Attending Provider: Lukas Dupont Primary Care Provider: Ya Boykin Hospital Course Hospital Course: Patient initially presented with signs and symptoms that were ultimately determined to be secondary to symptomatic bradycardia. Patient was in the ICU, while awaiting for bed availability at [facility] for pacemaker placement. Patient remained relatively stable while at [facility], and ultimately had a bed available with [facility] was determined to be stable for transfer. Home Meds and New Rx's Prescriptions: No Action cetirizine [All Day Allergy (cetirizine)] 10 mg tablet 10 mg PO DAILY PRN carboxymethylcellulose sodium 0.5 % drops 1 drp ophthalmic (eye) QID diclofenac sodium [Arthritis Pain (diclofenac)] 1 % gel 2 g topical QID Rx Instructions: apply to single elbow, wrist or hand; for hand includes palm/fingers/back of hand escitalopram oxalate 5 mg tablet 10 mg PO DAILY gabapentin 600 mg tablet 600 mg PO TID lactase 9,000 unit tablet 9,000 unit PO QAC PRN Rx Instructions: administer with first bite of dairy food hydroxyzine HCl 25 mg tablet 25 mg PO TID PRN indomethacin 75 mg capsule, extended release 75 mg PO BID trazodone 50 mg tablet 50 mg PO QHS PRN mometasone 220 mcg/ actuation (60) aerosol powdr breath activated 1 inh inhalation QPM olodaterol 2.5 mcg/actuation mist 2 inh inhalation DAILY omeprazole 10 mg capsule,delayed release(DR/EC) 40 mg PO DAILY losartan [Cozaar] 50 mg tablet 25 mg PO DAILY Patient Comments: states hes now taking 75mg per [facility] albuterol sulfate 1.25 mg/3 mL solution for nebulization 1.25 mg inhalation Q6H PRN (Reason: shortness of breath or wheezing) Qty: 75 0RF Patient Comments: unable to use- no electricity and ran out of gas for his generator acetaminophen 500 mg capsule 1,000 mg PO Q6H PRN Jose Angel Footeta 200-62.5-25 mcg blister with device 1 inh inhalation DAILY albuterol sulfate 90 mcg/actuation HFA aerosol inhaler 2 inh inhalation Q6H PRN Discharge Instructions Activity:: Activity as Tolerated Equipment/Supplies:: No Equipment Needed Diet:: As Tolerated Discharge Orders Discharge Orders: Discharge Order (Routine); Ordered 01/19/25 Ordered By: Perry Birmingham DS: Summary Time Spent with Patient providing and/or coordinating discharge services: Greater than 30 minutes Status at Discharge Functional status at discharge: independent ambulation Overall status at discharge: patient is back to baseline Mental Status: mental status grossly normal Speech and Movement: speech and movement normal Mood: congruent mood Affect: normal affect Quality:SDOH Health Related Social Needs: 2 Health related social needs inadequate housing food in security transpo insecurity material hardship house/econ circumstance lonely/isolated Health related social needs details Lives in a camper, had to move out of house due to fiberglass insulation coming down and breathing it in causing respiratory issues. Has trouble with heat and has no electric in camper. Health related social needs details: Lives in a camper, had to move out of house due to fiberglass insulation coming down and breathing it in causing respiratory issues. Has trouble with heat and has no electric in camper. Exam Narrative Exam Narrative: Well-appearing older gentleman laying in bed in no acute distress, ANO x 4, heart regular rate rhythm with no bradycardia noted at time of exam, lungs clear to auscultation bilaterally, abdomen soft, nontender, nondistended Psych Mental Status: mental status grossly normal Speech and Movement: speech and movement normal Mood: congruent mood Affect: normal affect DS: Data Vitals/I&O Vitals and I&O: Vital Signs Temperature 98.4 F 01/19/25 13:40 Temperature Source Temporal Artery Scan 01/19/25 13:40 Pulse 72 01/19/25 16:02 Pulse 73 01/19/25 15:20 Respiratory Rate 15 01/19/25 16:02 Respiratory Effort Normal 01/19/25 13:40 Respiratory Depth Normal 01/19/25 13:40 Respiratory Pattern Normal 01/19/25 13:40 Blood Pressure 194/102 H 01/19/25 15:16 Blood Pressure Mean 131 01/19/25 15:16 Blood Pressure Position Supine 01/19/25 13:40 Pulse Oximetry 96 01/19/25 16:02 Oxygen Delivery Method Room Air 01/19/25 16:02 Oxygen Flow Rate 0 01/19/25 16:02 Pain Level 7 01/19/25 18:21 Intake & Output 01/19/25 01/19/25 01/20/25 05:59 17:59 05:59 Intake Total 220 / 220 Output Total 100 / 100 100 / 200 Balance 120 / 120 -100 / 20 Weight 175 lb 7.807 oz Intake: IV 20 / 20 Oral 200 / 200 Output: Urine 100 / 100 100 / 200 Other: Urine Color Yellow Yellow Urine Appearance Clear Clear Urine Odor Strong Data Completed and Pending Labs on day of discharge: Labs from last 24 hours 01/19/25 01/19/25 01/19/25 10:05 08:09 07:05 WBC 6.85 RBC 4.14 L Hgb 12.7 L Hct 38.9 L MCV 94 MCH 30.7 MCHC 32.6 RDW 14.3 H Plt Count 251 MPV 9.0 Immature Gran % 0.4 Neutrophils % 73.2 Lymphocytes % 15.8 Monocytes % 7.6 Eosinophils % 2.3 Basophils % 0.7 Nucleated RBC % 0.0 Absolute Neutrophils 5.01 Absolute Lymphocytes 1.08 L Absolute Monocytes 0.52 Absolute Eosinophils 0.16 Absolute Basophils 0.05 Sodium 140 Potassium 4.3 Chloride 106 Carbon Dioxide 27.0 Anion Gap 7.0 BUN 24 H Creatinine 0.9 Est GFR (CKD-EPI 2020) 87.42 Glucose 108 H Calcium 9.0 Magnesium 2.0 Total Bilirubin 0.4 AST 23 ALT 21 Alkaline Phosphatase 73 Troponin I 51 38 32 Total Protein 7.4 Albumin 3.5 PFSH All Active Problems (Updated 01/19/25 @ 19:11 by Lukas Dupont MD) Arthritis (Acute) Major depression, recurrent, chronic (Acute) Benign essential hypertension (Acute) RAD (reactive airway disease) with wheezing (Acute) Symptomatic sinus bradycardia (Acute) Closed fracture of phalanx of left little finger (Acute) Fracture of fibula, distal, right, closed (Acute ~05/18/23) Persistent shortness of breath after COVID-19 (Acute) Social History Smoking/Tobacco Use Status: Never Smoking risk assessment performed?: Yes Alcohol Intake: current Alcohol Intake frequency: a few times a month Alcohol type: beer and hard liquor Drug use: Occasionally Substance use type: marijuana Housing: other Do you feel safe at home: Yes Do you feel safe in your relationship?: Yes Additional Social history: lives off grid, no money for fuel for generator Time Spent with Patient Time Spent with Patient: <45 minutes Time was spent: preparing to see the patient(eg.review tests), obtaining and/or reviewing separately otained hiistory, ordering medications,tests, procedures, referring, communicating with other health care worker, indepentently interpreting results, counseling the patient and care coordination
[2025-01-19] MEDS: Indomethacin 25 MG CAP 75 MG PO (20:30)
[2025-01-19] MEDS: Budesonide/Formoterol 160/4.5 6 GM 60 PUFF INH IH (20:37)
== END 2025-01-19 21:05 | disposition short-term general hospital (02) | DRG 309 ==
LOC: ER 10:30 → ICU 13:02
PROVIDERS: Admitting Provider Family Medicine; Emergency Provider Emergency Medicine; PCP Physician Assistant; Responsible Provider Family Medicine; Visit Provider Family Medicine
DX: R00.1 Bradycardia, unspecified (principal); F33.9 Major depressive disorder, recurrent, unspecified; J45.909 Unspecified asthma, uncomplicated; I10 Essential (primary) hypertension; R05.9 Cough, unspecified; J44.9 Chronic obstructive pulmonary disease, unspecified; Z59.87 Material hardship due to limited financial resources, not elsewhere classified; Z59.82 Transportation insecurity; U09.9 Post COVID-19 condition, unspecified; R06.02 Shortness of breath; G89.29 Other chronic pain; M54.50 Low back pain, unspecified; K21.9 Gastro-esophageal reflux disease without esophagitis; M19.90 Unspecified osteoarthritis, unspecified site; F12.90 Cannabis use, unspecified, uncomplicated; I44.0 Atrioventricular block, first degree
CPT/HCPCS: 00123; 36415; 80053; 93005; 94640; 99285; 71045; 83735; 84484; 85025; 93010; 99235; J7512; J7620